=== PATIENT | male | born 1945 | race Caucasian/White ===

== ENCOUNTER 2019-02-07 15:35 | Inpatient (IN) | payer MEDICARE, OTHER ==
[~2019-02-07] VITALS: Ht 165.1 cm; Wt 63.3 kg
[2019-02-07] MEDS ORDERED: SOD CHLORIDE 0.9% 700 ML IV ONE (16:30)
[2019-02-07] MEDS ORDERED: ASPI-903 PO (17:04)
[2019-02-07] MEDS ORDERED: FER325 PO (17:06)
[2019-02-07] MEDS ORDERED: LACT20SO2 PO (17:08)
[2019-02-07] MEDS ORDERED: LANT3I SC (17:08)
[2019-02-07] MEDS ORDERED: LEVE10006 PO (17:09)
[2019-02-07] MEDS ORDERED: LISI-313 PO (17:10)
[2019-02-07] MEDS ORDERED: MAGN400T28 PO (17:11)
[2019-02-07] MEDS ORDERED: INSU100C3 SQ ×2 (17:12→17:22)
[2019-02-07] MEDS ORDERED: CRES20 PO (17:13)
[2019-02-07] MEDS ORDERED: ASC500 PO (17:14)
[2019-02-07] MEDS ORDERED: QUET25TA PO (17:14)
[2019-02-07] MEDS ORDERED: ACET325T33 PO (17:14)
[2019-02-07] MEDS ORDERED: RANI75TA13 PO (17:15)
[2019-02-07] MEDS ORDERED: NS + KCL 40 MEQ 1,000 ML IV SCH (17:50)
[2019-02-07] MEDS ORDERED: D10/0.45% NACL + KCL 30 MEQ 1,000 ML IV SCH (17:50)
[2019-02-07] MEDS ORDERED: DEXTROSE 10%/0.45% NACL 1,000 ML IV SCH (17:50)
[2019-02-07] MEDS ORDERED: D10/0.45% NACL + KCL 40 MEQ 1,000 ML IV SCH (17:50)
[2019-02-07] MEDS ORDERED: NS + KCL 30 MEQ 1,000 ML IV SCH (17:50)
[2019-02-07] MEDS ORDERED: SOD CHLORIDE 0.9% 1,000 ML IV SCH (17:50)
[2019-02-07] MEDS ORDERED: DEXTROSE 50% 50 ML SYRINGE IV PRN ×2 (18:00)
[2019-02-07] MEDS ORDERED: LACTATED RINGER'S 700 ML IV ONE (18:00)
--- NOTE | 2019-02-07 18:13 | ERD ---
ER Documentation Chief Complaint Chief Complaint fr [facility] high blood sugar? HPI This is a 73-year-old male that presents to the emergency department from [facility] with hyperglycemia. The patient's blood sugars been elevated for several days despite the patient taking his medications which includes metformin as well as NovoLog. The patient has a history of epilepsy and is currently on Keppra. He has generalized muscle weakness and atrophy as well as hypertension. The patient has malignant neoplasm of the prostate as well as schizophrenia. The patient is a poor historian. He denies any pain at this time. ROS All systems reviewed and are negative except as per history of present illness. Medications Home Meds Reported Medications Insulin Aspart (Novolog) 100 Unit/1 Ml Cartridge, 0 SQ SLIDING SCALE IF BS 151-200=2 UNITS,201-250=4 UNITS,251-300=6 UNITS,301-350=8 UNITS,351-400=10 UNITS>401=12 UNITS AND CALL MD. 02/07/19 Ranitidine Hcl* (Zantac*) 75 Mg Tablet, 75 MG PO BID, TAB 02/07/19 Ascorbic Acid (Vitamin C) 500 Mg Tab, 500 MG PO BID, TAB 02/07/19 Acetaminophen* (Tylenol*) 325 Mg Tablet, 650 MG PO Q4H PRN for MILD PAIN LEVEL 1-3, TAB 02/07/19 Quetiapine Fumarate* (Seroquel*) 25 Mg Tablet, 25 MG PO TID, #90 TAB 02/07/19 Rosuvastatin Calcium* (Crestor*) 20 Mg Tablet, 20 MG PO QHS, #30 TAB 02/07/19 Insulin Aspart (Novolog) 100 Unit/1 Ml Cartridge, 8 UNIT SQ WITH MEALS for FOR DM 02/07/19 Magnesium Oxide* (Magnesium Oxide*) 400 Mg Tablet, 400 MG PO TID, TAB 02/07/19 Lisinopril* (Lisinopril*) 5 Mg Tablet, 5 MG PO DAILY, #30 TAB HOLD FOR SBP<110 OR HR<60 02/07/19 Levetiracetam* (Levetiracetam*) 1,000 Mg Tablet, 1000 MG PO BID, TAB 02/07/19 Insulin Glargine* (Lantus*) 100 Unit/Ml Soln, 60 UNIT SC QHS, #1 VIAL 02/07/19 Lactulose* (Lactulose*) 20 Gm/30 Ml Solution, 30 ML PO BID, ML 02/07/19 Ferrous Sulfate* (Ferrous Sulfate*) 325 Mg Tabec, 325 MG PO BID, TAB 02/07/19 Aspirin* (Aspirin* Chew) 81 Mg Tab.chew, 81 MG PO DAILY, TAB.CHEW 02/07/19 Allergies Allergies: Coded Allergies: No Known Allergy (Unverified , 02/07/19) PMhx/Soc History of Surgery: No Anesthesia Reaction: No Hx 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 Disorder: No Hx Respiratory Disorders: No Hx Cardiac Disorders: No Hx Psychiatric Problems: No Hx Miscellaneous Medical Probl: No Hx Alcohol Use: Yes Hx Substance Use: No Hx Tobacco Use: No Smoking Status: Never smoker Physical Exam Vitals Vital Signs Date Temp Pulse Resp B/P (MAP) Pulse Ox O2 O2 Flow FiO2 Time Delivery Rate 02/07/19 97.7 99 20 101/55 98 Room Air 16:17 (70) 02/07/19 97.7 93 20 86/51 (63) 98 15:59 Physical Exam Constitutional:Well-developed. Well-nourished. HEENT:Normocephalic. Atraumatic.Pupils were equal round reactive to light. Dry mucous membranes. Neck: No nuchal rigidity. No lymphadenopathy. No posterior cervical spine tenderness or step-offs. Respiratory: Not using accessory muscles of respiration.Lungs were clear to auscultation bilaterally. No rhonchi. No rales. No wheezing. Cardiovascular: Regular rate regular rhythm.No murmurs. No rubs were a ppreciated.S1, S2 normal. Distal pulses are palpable 2+ bilaterally. GI: Abdomen was soft. Nontender. Non Distended. No pulsatile abdominal masses or bruits. No rebound. No guarding. Bowel sounds were present and normal. Muscle skeletal: Muscle atrophy of the bilateral lower extremities. Skin: No petechia, no purpura. No lesions on the palms or the soles of the feet. No maculopapular rash. NEURO: Patient is alert awake and orientated to person but not to place or time. Gait was not observed. No facial droop. Result Diagram: 02/07/19 1653 02/07/19 1653 Results 24 hrs Laboratory Tests Test 02/07/19 16:03 02/07/19 16:19 02/07/19 16:53 Bedside Glucose 435 mg/dL Blood Gas Specimen Source Blood venous Arterial Blood Date Drawn 02/07/2019 4:35:36 PM Arterial Blood Gas VENOUS LINE Puncture Site Kelvin Test N/A Venous Blood pH 7.342 Venous Blood pCO2 22.6 mmHG (Temp Corrected) Venous Blood pO2 53.1 mmHG (Temp Corrected) Venous Blood HCO3 12.0 mmol/L Venous Blood Oxygen 88.0 mmHG Saturation Venous Blood Base Excess -11.5 mmol/L Venous Blood Total 14.5 g/dl Hemoglobin Venous Blood Oxyhemoglobin 87.4 % Venous Blood Methemoglobin 0.4 % Carboxyhemoglobin 0.3 % Blood Gas Temperature 37.0 C Blood Gas Modality NASAL CANNULA FiO2 27.0 % Blood Gas Notified Whom [place] Blood Gas Notified Time 02/07/2019 4:48:19 PM White Blood Count 15.3 10^3/ul Red Blood Count 4.28 10^6/ul Hemoglobin 12.6 g/dl Hematocrit 38.1 % Mean Corpuscular Volume 89.0 fl Mean Corpuscular Hemoglobin 29.4 pg Mean Corpuscular 33.1 g/dl Hemoglobin Concent Red Cell Distribution Width 13.2 % Platelet Count 343 10^3/UL Mean Platelet Volume 10.6 fl Immature Granulocytes % 0.700 % Neutrophils % 77.9 % Lymphocytes % 11.8 % Monocytes % 9.4 % Eosinophils % 0.0 % Basophils % 0.2 % Nucleated Red Blood Cells % 0.0 /100WBC Immature Granulocytes # 0.110 10^3/ul Neutrophils # 11.9 10^3/ul Lymphocytes # 1.8 10^3/ul Monocytes # 1.4 10^3/ul Eosinophils # 0.0 10^3/ul Basophils # 0.0 10^3/ul Nucleated Red Blood Cells # 0.0 10^3/ul Prothrombin Time 12.2 Sec Prothrombin Time Ratio 1.0 INR International 0.89 Normalized Ratio Activated 31.1 Sec Partial Thromboplast Time Sodium Level 129 mmol/L Potassium Level 5.3 mmol/L Chloride Level 87 mmol/L Carbon Dioxide Level 14 mmol/L Anion Gap 28 Blood Urea Nitrogen 47 mg/dl Creatinine 2.52 mg/dl Est Glomerular Filtrat mL/min Rate mL/min Glucose Level 420 mg/dl Calcium Level 10.0 mg/dl Phosphorus Level 3.3 mg/dl Magnesium Level 2.4 mg/dl Total Bilirubin 0.4 mg/dl Direct Bilirubin 0.00 mg/dl Indirect Bilirubin 0.4 mg/dl Aspartate Amino 23 IU/L Transf (AST/SGOT) Alanine 22 IU/L Aminotransferase (ALT/SGPT) Alkaline Phosphatase 113 IU/L Troponin I < 0.012 ng/ml Total Protein 7.5 g/dl Albumin 4.3 g/dl Globulin 3.20 g/dl Albumin/Globulin Ratio 1.34 Current Medications Medications Dose Sig/Mary Kate Start Time Status Last (Trade) Ordered Route PRN Stop Time Admin Dose Reason Admin Sodium 700 ml @ ONCE ONCE 02/07/19 DC 02/07/19 Chloride 700 mls/hr IV 16:30 17:00 02/07/19 17:29 Potassium 1,000 ml @ Q0M IV 02/07/19 UNV Chloride/Sodi 0 mls/hr 17:50 um Chloride Potassium 1,000 ml @ Q0M IV 02/07/19 UNV Chloride/Dext 0 mls/hr 17:50 estrada/ Sod Cl Potassium 1,000 ml @ Q0M IV 02/07/19 UNV Chloride/Sodi 0 mls/hr 17:50 um Chloride Potassium 1,000 ml @ Q0M IV 02/07/19 UNV Chloride/Dext 0 mls/hr 17:50 estrada/ Sod Cl Sodium 1,000 ml @ Q0M IV 02/07/19 UNV Chloride 0 mls/hr 17:50 1,000 ml @ Q0M IV 02/07/19 UNV Dextrose/Sodi 0 mls/hr 17:50 um Chloride Insulin 101 ml @ ER DKA 02/07/19 UNV Human 7.07 mls/hr PROTOCOL IV 18:00 Regular 100 unit/ Sodium Chloride Lactated 700 ml @ ONCE ONCE 02/07/19 UNV Ringer's 700 mls/hr IV 18:00 02/07/19 18:59 HYPOGLYCEM 02/07/19 UNV Miscellaneous HYPOGLYCEMIA PROTOCOL PRN 18:00 TREATMENT XX Information .HYPOGLYCEMIA (* PROTOCOL Miscellaneous Pharmacy Order) Dextrose 50 ml Q15M PRN 02/07/19 UNV (D50w IV 18:00 Syringe) .DECREASED GLUCOSE Dextrose 25 ml Q15M PRN 02/07/19 UNV (D50w IV 18:00 Syringe) .DECREASED GLUCOSE Procedures/MDM This is a 73-year-old male that presented to the emergency department hyperglycemia. The patient been placed on chronic monitor continuous pulse oximetry and IV access was established by nursing staff. 12 Lead EKG tracing ordered and reviewed by myself showed: Normal sinus rhythm of 84 bpm and no arrhythmia. CT interval normal. QRS duration normal. No ST segment elevation No ST segment depression. No changes consistent with acute ischemia. Patient showed signs of clinical dehydration with hypotension. The patient was hyperglycemic with a blood glucose of 420. The anion gap was elevated. The patient had a decreased bicarb of 14. Blood gas showed no acidosis but bicarb was low at 12. The patient had a DKA screening and I did feel was experiencing early diabetic ketoacidosis. Therefore the DKA protocol was initially started. The patient will be placed on an insulin drip to decrease the anion gap. The patient will go to the intensive care unit in serious condition and will be admitted under the care of his primary care physician Dr. Valdivia. Critical Care: Time: 65 minutes Treatments/Evaluations: Close monitoring and treatment of unstable vital signs, cardiorespiratory, and neurologic status, while maintaining tight balance of fluid, respiratory, and cardiac interventions. Time does not include performing any of the above billable procedures. Departure Diagnosis: Primary Impression: Diabetic ketoacidosis Diabetes mellitus type: other specified (including CASSIE) Diabetes mellitus complication detail: without coma Qualified Codes: E13.10 - Other specified diabetes mellitus with ketoacidosis without coma Condition: Serious ERIS MARTINEZ MD Feb 07, 2019 18:13
[2019-02-07] MEDS ORDERED: INSULIN REGULAR, HUMAN 100 UNIT in SOD CHLORIDE 0.9% 100 ML IV SCH ×2 (19:00)
[2019-02-08] VITALS (24 sets, daily range): BP systolic 90–158; BP diastolic 48–86; PULSE 59–87; RESP 12–31; Ht 165.1 cm; Wt 63.3 kg
[2019-02-08] MEDS ORDERED: SOD CHLORIDE 0.9% 1,000 ML IV SCH (02:00)
[2019-02-08] MEDS ORDERED: POTASSIUM CHLORIDE 50 ML IVPB PRN (02:00)
[2019-02-08] MEDS ORDERED: ONDANSETRON 4 MG INJ IV PRN (02:00)
[2019-02-08] MEDS ORDERED: D10/0.45% NACL + KCL 30 MEQ 1,000 ML IV SCH (02:00)
[2019-02-08] MEDS ORDERED: D10/0.45% NACL + KCL 40 MEQ 1,000 ML IV SCH (02:00)
[2019-02-08] MEDS ORDERED: NS + KCL 30 MEQ 1,000 ML IV SCH (02:00)
[2019-02-08] MEDS ORDERED: DEXTROSE 50% 50 ML SYRINGE IV PRN ×5 (02:00→20:00)
[2019-02-08] MEDS ORDERED: NS + KCL 40 MEQ 1,000 ML IV SCH (02:00)
[2019-02-08] MEDS ORDERED: DEXTROSE 10%/0.45% NACL 1,000 ML IV SCH (02:00)
[2019-02-08] MEDS ORDERED: ZOLPIDEM 5 MG TAB PO PRN (02:00)
[2019-02-08] MEDS ORDERED: ACETAMINOPHEN 325 MG TAB PO PRN (02:00)
[2019-02-08] MEDS: INSULIN REGULAR, HUMAN 100 UNIT in SOD CHLORIDE 0.9% 100 ML IV SCH ×4 (02:16→09:21)
[2019-02-08] MEDS: ACCU-CHEK XX SCH ×14 (02:18→15:00)
[2019-02-08] MEDS: PANTOPRAZOLE (EC) 40 MG TAB PO SCH (06:10)
[2019-02-08] MEDS: LEVETIRACETAM 500 MG TAB PO SCH ×2 (08:23→20:42)
[2019-02-08] MEDS: QUETIAPINE 25 MG TAB PO SCH ×3 (08:23→20:43)
--- NOTE | 2019-02-08 11:21 | HP ---
Date/Time of Note Date/Time of Note DATE: 02/08/19 TIME: 11:06 Assessment/Plan VTE Prophylaxis Risk score (from Nsg)>0 risk: 3 SCD applied (from Nsg): Yes Pharmacological prophylaxis: LMWH Lines/Catheters IV Catheter Type (from Nrsg): Peripheral IV Urinary Cath still in place: Yes (condom cath ) Reason Cath still needed: urinary retention Assessment/Plan Assessment/Plan -DKA in patient with diabetes mellitus with hemoglobin A1c of 11, continue insulin drip, monitor electrolytes, ABG, continue ICU care. Dr. Sanchez is asked to see patient in endocrinology consultation. -Systemic inflammatory response syndrome with leukocytosis most likely secondary to DKA. -Acute kidney injury, continue IV fluids, monitor electrolytes -Epilepsy, continue Keppra -Hypertension, continue lisinopril Further recommendations based on clinical course. Plan of care discussed with Dr. Valdivia. Result Diagram: 02/07/19 1653 02/08/19 0954 Results 24hrs Laboratory Tests Test 02/07/19 16:03 02/07/19 16:19 02/07/19 16:45 02/07/19 16:53 Bedside Glucose 435 *H Blood Gas Blood venous Specimen Source Arterial Blood 02/07/2019 4:35 Date Drawn :36 PM Arterial Blood VENOUS LINE Gas Puncture Site Kelvin Test N/A Venous Blood pH 7.342 Venous Blood 22.6 L pCO2 (Temp Corrected ) Venous Blood 53.1 H pO2 (Temp Corrected ) Venous Blood 12.0 L HCO3 Venous Blood 88.0 H Oxygen Saturation Venous Blood -11.5 L Base Excess Venous Blood 14.5 Total Hemoglobin Venous Blood 87.4 Oxyhemoglobin Venous Blood 0.4 Methemoglobin Carboxyhemoglob 0.3 in Blood Gas 37.0 Temperature Blood Gas NASAL CANNULA Modality FiO2 27.0 Blood Gas OR Notified Whom Blood Gas 02/07/2019 4:48 Notified Time :19 PM Hemoglobin A1c 10.8 H White Blood 15.3 H Count Red Blood Count 4.28 L Hemoglobin 12.6 L Hematocrit 38.1 L Mean 89.0 Corpuscular Volume Mean 29.4 Corpuscular Hemoglobin Mean 33.1 Corpuscular Hemoglobin Conc ent Red Cell 13.2 Distribution Width Platelet Count 343 Mean Platelet 10.6 H Volume Immature 0.700 H Granulocytes % Neutrophils % 77.9 H Lymphocytes % 11.8 L Monocytes % 9.4 Eosinophils % 0.0 Basophils % 0.2 Nucleated Red 0.0 Blood Cells % Immature 0.110 H Granulocytes # Neutrophils # 11.9 H Lymphocytes # 1.8 Monocytes # 1.4 H Eosinophils # 0.0 Basophils # 0.0 Nucleated Red 0.0 Blood Cells # Prothrombin 12.2 Time Prothrombin 1.0 Time Ratio INR 0.89 International Normalized Rati o Activated 31.1 Partial Thrombo plast Time Sodium Level 129 L Potassium Level 5.3 H Chloride Level 87 L Carbon Dioxide 14 L Level Anion Gap 28 H Blood Urea 47 H Nitrogen Creatinine 2.52 H Est Glomerular Filtrat Rate mL/min Glucose Level 420 *H Calcium Level 10.0 Phosphorus 3.3 Level Magnesium Level 2.4 Total Bilirubin 0.4 Direct 0.00 Bilirubin Indirect 0.4 Bilirubin Aspartate Amino 23 Transf (AST/SGO T) Alanine 22 Aminotransferas e (ALT/SGPT) Alkaline 113 Phosphatase Troponin I < 0.012 Total Protein 7.5 Albumin 4.3 Globulin 3.20 Albumin/Globuli 1.34 n Ratio Test 02/07/19 19:11 02/07/19 19:26 02/07/19 19:45 02/07/19 19:50 Sodium Level 126 L Potassium Level 5.3 H Chloride Level 92 L Carbon Dioxide 14 L Level Anion Gap 20 #H Blood Urea 46 H Nitrogen Creatinine 2.20 H Est Glomerular Filtrat Rate mL/min Glucose Level 432 *H Calcium Level 8.8 Phosphorus 3.6 Level Magnesium Level 2.2 Bedside Glucose 419 *H Urine Color YELLOW Urine Clarity CLEAR Urine pH 5.0 Urine Specific 1.018 [place] Urine Ketones 2+ H Urine Nitrite NEGATIVE Urine Bilirubin NEGATIVE Urine NEGATIVE Urobilinogen Urine Leukocyte NEGATIVE Esterase Urine 1 Microscopic RBC Urine 0 Microscopic WBC Urine Mucus FEW A Urine 1+ H Hemoglobin Urine Glucose 3+ H Urine Total NEGATIVE Protein Blood Gas Blood venous Specimen Source Arterial Blood 02/07/2019 7:55 Date Drawn :49 PM Arterial Blood VENOUS LINE Gas Puncture Site Kelvin Test N/A Venous Blood pH 7.302 L Venous Blood 29.9 L pCO2 (Temp Corrected ) Venous Blood 42.0 H pO2 (Temp Corrected ) Venous Blood 14.4 L HCO3 Venous Blood 75.0 Oxygen Saturation Venous Blood -10.6 L Base Excess Venous Blood 12.2 Total Hemoglobin Venous Blood 74.4 Oxyhemoglobin Venous Blood 0.5 Methemoglobin Carboxyhemoglob 0.3 in Blood Gas 37.0 Temperature Blood Gas NASAL CANNULA Modality FiO2 27.0 Blood Gas AA Notified Whom Blood Gas 02/07/2019 8:04 Notified Time :33 PM Test 02/07/19 19:54 02/07/19 20:40 02/07/19 21:50 02/07/19 22:12 Bedside Urine 5.0 pH (LAB) Bedside Urine 1+ H Protein (LAB) Bedside Urine 0.50% H Glucose (UA) Bedside Urine 4+ H Ketones (LAB) Bedside Urine Trace-intact H Blood Bedside Urine Negative Nitrite (LAB) Bedside Urine Negative Leukocyte Jackelyn ase (L Bedside Glucose 501 *H 563 *H Blood Gas Blood venous Specimen Source Arterial Blood 02/07/2019 10:0 Date Drawn 5:33 PM Arterial Blood VENOUS LINE Gas Puncture Site Kelvin Test N/A Venous Blood pH 7.233 L Venous Blood 24.7 L pCO2 (Temp Corrected ) Venous Blood 54.7 H pO2 (Temp Corrected ) Venous Blood 10.2 L HCO3 Venous Blood 83.6 H Oxygen Saturation Venous Blood -15.6 L Base Excess Venous Blood 12.3 Total Hemoglobin Venous Blood 82.9 Oxyhemoglobin Venous Blood 0.5 Methemoglobin Carboxyhemoglob 0.3 in Blood Gas 37.0 Temperature Blood Gas NASAL CANNULA Modality FiO2 27.0 Blood Gas AA Notified Whom Blood Gas 02/07/2019 10:1 Notified Time 6:17 PM Test 02/07/19 23:09 02/07/19 23:12 02/08/19 00:09 02/08/19 01:11 Sodium Level 130 L Potassium Level 5.8 H Chloride Level 93 L Carbon Dioxide 9 #*L Level Anion Gap 28 #H Blood Urea 44 H Nitrogen Creatinine 2.47 H Est Glomerular Filtrat Rate mL/min Glucose Level 567 *H Calcium Level 9.3 Phosphorus 4.6 Level Magnesium Level 2.2 Bedside Glucose 545 *H 470 *H 420 *H Test 02/08/19 01:50 02/08/19 02:12 02/08/19 03:07 02/08/19 03:59 Blood Gas Blood venous Specimen Source Arterial Blood 02/08/2019 3:16: Date Drawn 59 AM Arterial Blood VENOUS LINE Gas Puncture Site Kelvin Test ACCEPTAB Venous Blood pH 7.327 L Venous Blood 30.0 L pCO2 (Temp Corrected ) Venous Blood 32.8 H pO2 (Temp Corrected ) Venous Blood 15.4 L HCO3 Venous Blood 62.3 Oxygen Saturation Venous Blood -9.4 L Base Excess Venous Blood 11.5 Total Hemoglobin Venous Blood 61.8 Oxyhemoglobin Venous Blood 0.5 Methemoglobin Carboxyhemoglob 0.3 in Blood Gas 37.0 Temperature Blood Gas NASAL CANNULA Modality FiO2 33.0 Blood Gas Notified Whom Blood Gas 02/08/2019 3:26: Notified Time 09 AM Bedside Glucose 312 H 257 H 324 H Test 02/08/19 04:40 02/08/19 04:56 02/08/19 05:49 02/08/19 05:50 Sodium Level 138 137 Potassium Level 4.7 4.7 Chloride Level 102 103 Carbon Dioxide 21 # 20 L Level Anion Gap 15 #H 14 H Blood Urea 40 H 39 H Nitrogen Creatinine 1.85 H 1.68 H Est Glomerular Filtrat Rate mL/min Glucose Level 200 # 189 Calcium Level 9.2 9.0 Phosphorus 2.6 # 2.5 Level Magnesium Level 2.2 2.1 Bedside Glucose 218 Hemoglobin A1c 11.1 H Thyroid 0.582 Stimulating Hormone (TSH) Blood Gas Blood venous Specimen Source Arterial Blood 02/08/2019 6:00 Date Drawn :51 AM Arterial Blood VENOUS LINE Gas Puncture Site Kelvin Test N/A Venous Blood pH 7.341 Venous Blood 40.3 pCO2 (Temp Corrected ) Venous Blood 30.3 H pO2 (Temp Corrected ) Venous Blood 21.3 L HCO3 Venous Blood 55.5 Oxygen Saturation Venous Blood -4.1 Base Excess Venous Blood 12.6 Total Hemoglobin Venous Blood 55.2 Oxyhemoglobin Venous Blood 0.2 Methemoglobin Carboxyhemoglob 0.4 in Blood Gas 37.0 Temperature Blood Gas 18 Actual Respiration Rat e Blood Gas NASAL CANNULA Modality FiO2 33.0 Blood Gas Notified Whom Blood Gas 02/08/2019 6:17 Notified Time :59 AM Test 02/08/19 06:05 02/08/19 06:56 02/08/19 08:16 02/08/19 09:18 Bedside Glucose 200 188 199 176 Test 02/08/19 09:54 02/08/19 09:58 Sodium Level 135 Potassium Level 3.6 Chloride Level 105 Carbon Dioxide 23 Level Anion Gap 7 Blood Urea 32 H Nitrogen Creatinine 1.29 H Est Glomerular Filtrat Rate mL/min Glucose Level 186 Calcium Level 8.4 Phosphorus 1.6 L Level Magnesium Level 2.0 Bedside Glucose 179 HPI/ROS Admit Date/Time Admit Date/Time Feb 07, 2019 at 18:24 Hx of Present Illness Patient is 73-year-old gentleman with history of congestive heart failure, hypertension, anemia, diabetes mellitus type 2, prostate cancer, epilepsy, generalized muscle weakness and schizophrenia was brought from group home facility for hyperglycemia. The patient's blood sugar been elevated for several days despite of taking Lantus, NovoLog and metformin. The patient is a poor historian and cannot provide any history. Most of the history was obtained from medical records and talking to nursing staff. Patient was diagnosed with DKA in the emergency room and started on insulin drip and admitted for further evaluation and management to intensive care unit. No fever nausea vomiting were reported, patient is able to void. ROS 12 point review of system is negative except for what mentioned in HPI PMH/Family/Social Past Medical History Per HPI Medical History: congestive heart failure, diabetes, hypertension, other (Prostate cancer, schizophrenia) Medications Current Medications Dextrose (D50w Syringe) 50 ml Q15M PRN IV For BS 50 or less; Start 02/08/19 at 02:00 Dextrose (D50w Syringe) 25 ml Q15M PRN IV BS between 50-70; Start 02/08/19 at 02:00 Diagnostic Test (Pha) (Accu-Chek) 1 ea Q1H XX Last administered on 02/08/19at 07:05; Admin Dose 1 EA; Start 02/08/19 at 02:00 Miscellaneous Information (* Miscellaneous Pharmacy Order) HYPOGLYCEMIA TREATMENT HYPOGLYCEM PROTOCOL PRN XX Hypoglycemia (BS < 70); Start 02/08/19 at 02:00 Potassium Chloride/Sodium Chloride 1,000 ml @ 0 mls/hr Q0M IV ; Start 02/08/19 at 02:00 Potassium Chloride/Dextrose/ Sod Cl 1,000 ml @ 0 mls/hr Q0M IV ; Start 02/08/19 at 02:00 Potassium Chloride/Sodium Chloride 1,000 ml @ 0 mls/hr Q0M IV ; Start 02/08/19 at 02:00 Potassium Chloride/Dextrose/ Sod Cl 1,000 ml @ 0 mls/hr Q0M IV Last administered on 02/08/19at 07:02; Admin Dose 250 MLS/HR; Start 02/08/19 at 02:00 Sodium Chloride 1,000 ml @ 0 mls/hr Q0M IV Last administered on 02/08/19at 02:16; Admin Dose 250 MLS/HR; Start 02/08/19 at 02:00 Dextrose/Sodium Chloride 1,000 ml @ 0 mls/hr Q0M IV Last administered on 02/08/19at 03:11; Admin Dose 150 MLS/HR; Start 02/08/19 at 02:00 Insulin Human Regular 100 unit/ Sodium Chloride 101 ml @ 7.07 mls/hr DKA PROTOCOL IV Last administered on 02/08/19at 09:21; Admin Dose 7.07 MLS/HR; Start 02/08/19 at 02:00 Potassium Chloride 50 ml @ 50 mls/hr K PROTOCOL PRN IVPB PENDING LAB VALUE; Start 02/08/19 at 02:00 Pantoprazole (Protonix Tab) 40 mg DAILY@06 PO Last administered on 02/08/19at 06:10; Admin Dose 40 MG; Start 02/08/19 at 06:00 Acetaminophen (Tylenol Tab) 650 mg Q4H PRN PO MILD PAIN(1-3)OR ELEVATED TEMP; Start 02/08/19 at 02:00 Ondansetron HCl (Zofran Inj) 4 mg Q6H PRN IV NAUSEA AND/OR VOMITING; Start 02/08/19 at 02:00 Zolpidem Tartrate (Ambien) 5 mg HS PRN PO INSOMNIA; Start 02/08/19 at 02:00 Quetiapine Fumarate (Seroquel) 25 mg TID PO Last administered on 02/08/19at 08:23; Admin Dose 25 MG; Start 02/08/19 at 09:00 Levetiracetam (Keppra) 1,000 mg BID PO Last administered on 02/08/19at 08:23; Admin Dose 1,000 MG; Start 02/08/19 at 09:00 Coded Allergies: No Known Allergy (Unverified , 02/07/19) Past Surgical History Unable to obtain due to patient's condition Social History Patient is a resident of [facility] Alcohol Use: none Smoking Status: Unknown if ever smoked Drug Use: none Exam/Review of Systems Vital Signs Vitals Vital Signs Date Temp Pulse Resp B/P (MAP) Pulse Ox O2 O2 Flow FiO2 Time Delivery Rate 02/08/19 71 08:00 02/08/19 15 119/59 100 Nasal 06:00 (79) Cannula 02/08/19 98.5 04:00 02/08/19 4.0 02:10 Intake and Output 02/07/19 02/07/19 02/08/19 1515:00 23:00 07:00 IntakeIntake Total 1335 ml BalanceBalance 1335 ml Exam Constitutional: alert, oriented Head: normocephalic Respiratory: clear to auscultation Cardiovascular: regular rate and rhythm Gastrointestinal: soft, non-tender Musculoskeletal: nl extremities to inspection Extremities: normal pulses 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: nl mental status Skin: nl ANAIS Keller Feb 08, 2019 11:17
[2019-02-08] MEDS ORDERED: DEXTROSE 5%-0.45% NACL 1,000 ML IV SCH (12:00)
[2019-02-08] MEDS ORDERED: INSULIN HUMAN REGULAR 100 UNIT in SOD CHLORIDE 0.9% 99 ML IV SCH (12:00)
[2019-02-08] MEDS ORDERED: POTASSIUM PHOSPHATE 15 MM in SOD CHLORIDE 0.9% 250 ML IVPB ONE (13:00)
--- NOTE | 2019-02-08 14:07 | CONS ---
Assessment/Plan Assessment/Plan Problems: (1) Type 2 diabetes mellitus with hyperglycemia Status: Chronic Comment: Will hold all glucose and DM meds for now. Tonight will give lantus only 13 units (pt. supposedly on 60 units nightly at SNF). Once diet advanced will give Novolog 6 units qac. Consider adding linagliptin. Will monitor and decide what insulin regimen would be best over the next several days. Low threshold for significant dose increases as we are well below the doses pt. supposedly on in SNF. Qualifiers: Qualified Codes: E11.65 - Type 2 diabetes mellitus with hyperglycemia; Z79.4 - shelter (current) use of insulin (2) Diabetic ketoacidosis Status: Resolved Qualifiers: Qualified Codes: E13.10 - Other specified diabetes mellitus with ketoacidosis without coma Consultation Date/Type/Reason Admit Date/Time Feb 07, 2019 at 18:24 Date of Consultation: Feb 08, 2019 Type of Consult Endocrinology Reason for Consultation DKA Requesting Provider: ANAIS DOWNS Date/Time of Note DATE: 02/08/19 TIME: 13:54 Hx of Present Illness 73 y/o C M w/ h/o DM, type unclear although of note pt. was on metformin so likely has T2DM. In addition, based on the chart, pt. has h/o schizophrenia, congestive heart failure, hypertension, anemia, prostate cancer, and epilepsy. Pt. has had several days of hyperglycemia despite his regular treatment and last night was sent to ER in DKA w/ acute renal failure. Has been treated w/ insulin drip and IVF and DKA has resolved w/ most recent CO2 23 and BG 55 mg/dL. Pt. unable to give any history. Constitutional: disoriented Past Medical History Medical History: cancer (prostate), congestive heart failure, diabetes, high cholesterol, hypertension, other (schizophrenia, anemia, epilepsy) Home Meds Reported Medications Insulin Aspart (Novolog) 100 Unit/1 Ml Cartridge, 0 SQ SLIDING SCALE IF BS 151-200=2 UNITS,201-250=4 UNITS,251-300=6 UNITS,301-350=8 UNITS,351-400=10 UNITS>401=12 UNITS AND CALL 02/07/19 Ranitidine Hcl* (Zantac*) 75 Mg Tablet, 75 MG PO BID, TAB 02/07/19 Ascorbic Acid (Vitamin C) 500 Mg Tab, 500 MG PO BID, TAB 02/07/19 Acetaminophen* (Tylenol*) 325 Mg Tablet, 650 MG PO Q4H PRN for MILD PAIN LEVEL 1-3, TAB 02/07/19 Quetiapine Fumarate* (Seroquel*) 25 Mg Tablet, 25 MG PO TID, #90 TAB 02/07/19 Rosuvastatin Calcium* (Crestor*) 20 Mg Tablet, 20 MG PO QHS, #30 TAB 02/07/19 Insulin Aspart (Novolog) 100 Unit/1 Ml Cartridge, 8 UNIT SQ WITH MEALS for FOR DM 02/07/19 Magnesium Oxide* (Magnesium Oxide*) 400 Mg Tablet, 400 MG PO TID, TAB 02/07/19 Lisinopril* (Lisinopril*) 5 Mg Tablet, 5 MG PO DAILY, #30 TAB HOLD FOR SBP<110 OR HR<60 02/07/19 Levetiracetam* (Levetiracetam*) 1,000 Mg Tablet, 1000 MG PO BID, TAB 02/07/19 Insulin Glargine* (Lantus*) 100 Unit/Ml Soln, 60 UNIT SC QHS, #1 VIAL 02/07/19 Lactulose* (Lactulose*) 20 Gm/30 Ml Solution, 30 ML PO BID, ML 02/07/19 Ferrous Sulfate* (Ferrous Sulfate*) 325 Mg Tabec, 325 MG PO BID, TAB 02/07/19 Aspirin* (Aspirin* Chew) 81 Mg Tab.chew, 81 MG PO DAILY, TAB.CHEW 02/07/19 Medications Current Medications Miscellaneous Information (* Miscellaneous Pharmacy Order) HYPOGLYCEMIA TREATMENT HYPOGLYCEM PROTOCOL PRN XX Hypoglycemia (BS < 70); Start 02/08/19 at 02:00 Potassium Chloride/Sodium Chloride 1,000 ml @ 0 mls/hr Q0M IV ; Start 02/08/19 at 02:00 Potassium Chloride/Dextrose/ Sod Cl 1,000 ml @ 0 mls/hr Q0M IV ; Start 02/08/19 at 02:00 Potassium Chloride/Sodium Chloride 1,000 ml @ 0 mls/hr Q0M IV ; Start 02/08/19 at 02:00 Potassium Chloride/Dextrose/ Sod Cl 1,000 ml @ 0 mls/hr Q0M IV Last administered on 02/08/19at 07:02; Admin Dose 250 MLS/HR; Start 02/08/19 at 02:00 Sodium Chloride 1,000 ml @ 0 mls/hr Q0M IV Last administered on 02/08/19at 02:16; Admin Dose 250 MLS/HR; Start 02/08/19 at 02:00 Dextrose/Sodium Chloride 1,000 ml @ 0 mls/hr Q0M IV Last administered on 02/08/19at 03:11; Admin Dose 150 MLS/HR; Start 02/08/19 at 02:00 Potassium Chloride 50 ml @ 50 mls/hr K PROTOCOL PRN IVPB PENDING LAB VALUE; Start 02/08/19 at 02:00 Pantoprazole (Protonix Tab) 40 mg DAILY@06 PO Last administered on 02/08/19at 06:10; Admin Dose 40 MG; Start 02/08/19 at 06:00 Acetaminophen (Tylenol Tab) 650 mg Q4H PRN PO MILD PAIN(1-3)OR ELEVATED TEMP; Start 02/08/19 at 02:00 Ondansetron HCl (Zofran Inj) 4 mg Q6H PRN IV NAUSEA AND/OR VOMITING; Start 02/08/19 at 02:00 Zolpidem Tartrate (Ambien) 5 mg HS PRN PO INSOMNIA; Start 02/08/19 at 02:00 Quetiapine Fumarate (Seroquel) 25 mg TID PO Last administered on 02/08/19at 08:23; Admin Dose 25 MG; Start 02/08/19 at 09:00 Levetiracetam (Keppra) 1,000 mg BID PO Last administered on 02/08/19at 08:23; Admin Dose 1,000 MG; Start 02/08/19 at 09:00 Potassium Phosphate 15 mm/ Sodium Chloride 255 ml @ 63.75 mls/ hr ONCE ONCE IVPB Last administered on 02/08/19at 13:32; Admin Dose 63.75 MLS/HR; Start 02/08/19 at 13:00; Stop 02/08/19 at 16:59 Diagnostic Test (Pha) (Accu-Chek) 1 ea Q1H XX ; Start 02/08/19 at 12:00 Insulin Human Regular 100 unit/ Sodium Chloride 100 ml @ 0 mls/hr PER PROTOCOL IV ; Start 02/08/19 at 12:00 Miscellaneous Information (* Miscellaneous Pharmacy Order) Treatment of Hypoglycemia: 1.BG 51... Per protocol XX ; Start 02/08/19 at 12:00 Dextrose (D50w Syringe) 25 ml Q15M PRN IV .DECREASED GLUCOSE Last administered on 02/08/19at 13:28; Admin Dose 25 ML; Start 02/08/19 at 12:00 Dextrose (D50w Syringe) 50 ml Q15M PRN IV .DECREASED GLUCOSE; Start 02/08/19 at 12:00 Dextrose/Sodium Chloride 1,000 ml @ 100 mls/hr Q10H IV Last administered on 02/08/19at 12:28; Admin Dose 100 MLS/HR; Start 02/08/19 at 12:00 Diagnostic Test (Pha) (Accu-Chek) XX ; Start 02/09/19 at 02:00 Insulin Glargine (Lantus) 13 units DAILY@2000 SC ; Start 02/08/19 at 20:00 Insulin Aspart (Novolog Insulin Pen) 6 unit WITH MEALS SC ; Start 02/08/19 at 17:35; Status UNV Insulin Aspart (Novolog Insulin Pen) NOVOLOG *MILD* ALGORITHM WITH MEALS BEDTIME SC ; Start 02/08/19 at 17:35; Status UNV Allergies: Coded Allergies: No Known Allergy (Unverified , 02/07/19) Past Surgical History Past Surgical Hx: other (unknown; pt. awake but cannot relate a surgical history) Family History Significant Family History: other (unknown) Social History pt. , no children, living at SNF; unable to provide further history as pt. unable even to delineate a former career. Alcohol Use: other (unknown) Smoking Status: Unknown if ever smoked Drug Use: none Exam/Review of Systems Exam Vitals Vital Signs Date Temp Pulse Resp B/P (MAP) Pulse Ox O2 O2 Flow FiO2 Time Delivery Rate 02/08/19 70 12:00 02/08/19 15 91/55 (67) 100 Nasal 11:00 Cannula 02/08/19 98.2 08:00 02/08/19 4.0 02:10 Intake and Output 02/07/19 02/07/19 02/08/19 1515:00 23:00 07:00 IntakeIntake Total 1335 ml BalanceBalance 1335 ml Constitutional: alert, well developed; No oriented (alert and oriented only to name) Eyes: nl conjunctiva, EOMI, nl lids, nl sclera, PERRL ENMT: nl external ears & nose, mucosa pink and moist Neck: supple, non-tender; No bruits, No masses, No thyromegaly Respiratory: clear to auscultation, normal air movement Cardiovascular: regular rate and rhythm, nl pulses; No edema, No murmurs/extra sounds, No rub Gastrointestinal: soft, nl liver, spleen, non-tender, bowel sounds; No mass, No rebound or guarding Musculoskeletal: nl extremities to inspection Extremities: normal pulses; No cyanosis, No clubbing, No edema 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: confused Additional Comments Bedside Glucose - 72 Hours Test 02/07/19 16:03 02/07/19 19:26 02/07/19 20:40 02/07/19 22:12 Bedside 435 419 501 563 Glucose mg/dL (70-220) mg/dL (70-220) mg/dL (70-220) mg/dL (70-220) *H *H *H *H Test 02/07/19 23:12 02/08/19 00:09 02/08/19 01:11 02/08/19 02:12 Bedside 545 470 420 312 Glucose mg/dL (70-220) mg/dL (70-220) mg/dL (70-220) mg/dL (70-220) *H *H *H H Test 02/08/19 03:07 02/08/19 03:59 02/08/19 04:56 02/08/19 06:05 Bedside 257 324 218 200 Glucose mg/dL (70-220) mg/dL (70-220) mg/dL (70-220) mg/dL (70-220) H H Test 02/08/19 06:56 02/08/19 08:16 02/08/19 09:18 02/08/19 09:58 Bedside 188 199 176 179 Glucose mg/dL (70-220) mg/dL (70-220) mg/dL (70-220) mg/dL (70-220) Test 02/08/19 12:27 02/08/19 13:24 02/08/19 13:42 Bedside 80 55 77 Glucose mg/dL (70-220) mg/dL (70-220) mg/dL (70-220) L Results Result Diagram: 02/07/19 1653 02/08/19 0954 Results 24hrs Laboratory Tests Test 02/07/19 16:03 02/07/19 16:19 02/07/19 16:45 02/07/19 16:53 Bedside Glucose 435 *H Blood Gas Blood venous Specimen Source Arterial Blood 02/07/2019 4:35 Date Drawn :36 PM Arterial Blood VENOUS LINE Gas Puncture Site Kelvin Test N/A Venous Blood pH 7.342 Venous Blood 22.6 L pCO2 (Temp Corrected ) Venous Blood 53.1 H pO2 (Temp Corrected ) Venous Blood 12.0 L HCO3 Venous Blood 88.0 H Oxygen Saturation Venous Blood -11.5 L Base Excess Venous Blood 14.5 Total Hemoglobin Venous Blood 87.4 Oxyhemoglobin Venous Blood 0.4 Methemoglobin Carboxyhemoglob 0.3 in Blood Gas 37.0 Temperature Blood Gas NASAL CANNULA Modality FiO2 27.0 Blood Gas [place] Notified Whom Blood Gas 02/07/2019 4:48 Notified Time :19 PM Hemoglobin A1c 10.8 H White Blood 15.3 H Count Red Blood Count 4.28 L Hemoglobin 12.6 L Hematocrit 38.1 L Mean 89.0 Corpuscular Volume Mean 29.4 Corpuscular Hemoglobin Mean 33.1 Corpuscular Hemoglobin Conc ent Red Cell 13.2 Distribution Width Platelet Count 343 Mean Platelet 10.6 H Volume Immature 0.700 H Granulocytes % Neutrophils % 77.9 H Lymphocytes % 11.8 L Monocytes % 9.4 Eosinophils % 0.0 Basophils % 0.2 Nucleated Red 0.0 Blood Cells % Immature 0.110 H Granulocytes # Neutrophils # 11.9 H Lymphocytes # 1.8 Monocytes # 1.4 H Eosinophils # 0.0 Basophils # 0.0 Nucleated Red 0.0 Blood Cells # Prothrombin 12.2 Time Prothrombin 1.0 Time Ratio INR 0.89 International Normalized Rati o Activated 31.1 Partial Thrombo plast Time Sodium Level 129 L Potassium Level 5.3 H Chloride Level 87 L Carbon Dioxide 14 L Level Anion Gap 28 H Blood Urea 47 H Nitrogen Creatinine 2.52 H Est Glomerular Filtrat Rate mL/min Glucose Level 420 *H Calcium Level 10.0 Phosphorus 3.3 Level Magnesium Level 2.4 Total Bilirubin 0.4 Direct 0.00 Bilirubin Indirect 0.4 Bilirubin Aspartate Amino 23 Transf (AST/SGO T) Alanine 22 Aminotransferas e (ALT/SGPT) Alkaline 113 Phosphatase Troponin I < 0.012 Total Protein 7.5 Albumin 4.3 Globulin 3.20 Albumin/Globuli 1.34 n Ratio Test 02/07/19 19:11 02/07/19 19:26 02/07/19 19:45 02/07/19 19:50 Sodium Level 126 L Potassium Level 5.3 H Chloride Level 92 L Carbon Dioxide 14 L Level Anion Gap 20 #H Blood Urea 46 H Nitrogen Creatinine 2.20 H Est Glomerular Filtrat Rate mL/min Glucose Level 432 *H Calcium Level 8.8 Phosphorus 3.6 Level Magnesium Level 2.2 Bedside Glucose 419 *H Urine Color YELLOW Urine Clarity CLEAR Urine pH 5.0 Urine Specific 1.018 [place] Urine Ketones 2+ H Urine Nitrite NEGATIVE Urine Bilirubin NEGATIVE Urine NEGATIVE Urobilinogen Urine Leukocyte NEGATIVE Esterase Urine 1 Microscopic RBC Urine 0 Microscopic WBC Urine Mucus FEW A Urine 1+ H Hemoglobin Urine Glucose 3+ H Urine Total NEGATIVE Protein Blood Gas Blood venous Specimen Source Arterial Blood 02/07/2019 7:55 Date Drawn :49 PM Arterial Blood VENOUS LINE Gas Puncture Site Kelvin Test N/A Venous Blood pH 7.302 L Venous Blood 29.9 L pCO2 (Temp Corrected ) Venous Blood 42.0 H pO2 (Temp Corrected ) Venous Blood 14.4 L HCO3 Venous Blood 75.0 Oxygen Saturation Venous Blood -10.6 L Base Excess Venous Blood 12.2 Total Hemoglobin Venous Blood 74.4 Oxyhemoglobin Venous Blood 0.5 Methemoglobin Carboxyhemoglob 0.3 in Blood Gas 37.0 Temperature Blood Gas NASAL CANNULA Modality FiO2 27.0 Blood Gas AA Notified Whom Blood Gas 02/07/2019 8:04 Notified Time :33 PM Test 02/07/19 19:54 02/07/19 20:40 02/07/19 21:50 02/07/19 22:12 Bedside Urine 5.0 pH (LAB) Bedside Urine 1+ H Protein (LAB) Bedside Urine 0.50% H Glucose (UA) Bedside Urine 4+ H Ketones (LAB) Bedside Urine Trace-intact H Blood Bedside Urine Negative Nitrite (LAB) Bedside Urine Negative Leukocyte Jackelyn ase (L Bedside Glucose 501 *H 563 *H Blood Gas Blood venous Specimen Source Arterial Blood 02/07/2019 10:0 Date Drawn 5:33 PM Arterial Blood VENOUS LINE Gas Puncture Site Kelvin Test N/A Venous Blood pH 7.233 L Venous Blood 24.7 L pCO2 (Temp Corrected ) Venous Blood 54.7 H pO2 (Temp Corrected ) Venous Blood 10.2 L HCO3 Venous Blood 83.6 H Oxygen Saturation Venous Blood -15.6 L Base Excess Venous Blood 12.3 Total Hemoglobin Venous Blood 82.9 Oxyhemoglobin Venous Blood 0.5 Methemoglobin Carboxyhemoglob 0.3 in Blood Gas 37.0 Temperature Blood Gas NASAL CANNULA Modality FiO2 27.0 Blood Gas AA Notified Whom Blood Gas 02/07/2019 10:1 Notified Time 6:17 PM Test 02/07/19 23:09 02/07/19 23:12 02/08/19 00:09 02/08/19 01:11 Sodium Level 130 L Potassium Level 5.8 H Chloride Level 93 L Carbon Dioxide 9 #*L Level Anion Gap 28 #H Blood Urea 44 H Nitrogen Creatinine 2.47 H Est Glomerular Filtrat Rate mL/min Glucose Level 567 *H Calcium Level 9.3 Phosphorus 4.6 Level Magnesium Level 2.2 Bedside Glucose 545 *H 470 *H 420 *H Test 02/08/19 01:50 02/08/19 02:12 02/08/19 03:07 02/08/19 03:59 Blood Gas Blood venous Specimen Source Arterial Blood 02/08/2019 3:16: Date Drawn 59 AM Arterial Blood VENOUS LINE Gas Puncture Site Kelvin Test ACCEPTAB Venous Blood pH 7.327 L Venous Blood 30.0 L pCO2 (Temp Corrected ) Venous Blood 32.8 H pO2 (Temp Corrected ) Venous Blood 15.4 L HCO3 Venous Blood 62.3 Oxygen Saturation Venous Blood -9.4 L Base Excess Venous Blood 11.5 Total Hemoglobin Venous Blood 61.8 Oxyhemoglobin Venous Blood 0.5 Methemoglobin Carboxyhemoglob 0.3 in Blood Gas 37.0 Temperature Blood Gas NASAL CANNULA Modality FiO2 33.0 Blood Gas RH Notified Whom Blood Gas 02/08/2019 3:26: Notified Time 09 AM Bedside Glucose 312 H 257 H 324 H Test 02/08/19 04:40 02/08/19 04:56 02/08/19 05:49 02/08/19 05:50 Sodium Level 138 137 Potassium Level 4.7 4.7 Chloride Level 102 103 Carbon Dioxide 21 # 20 L Level Anion Gap 15 #H 14 H Blood Urea 40 H 39 H Nitrogen Creatinine 1.85 H 1.68 H Est Glomerular Filtrat Rate mL/min Glucose Level 200 # 189 Calcium Level 9.2 9.0 Phosphorus 2.6 # 2.5 Level Magnesium Level 2.2 2.1 Bedside Glucose 218 Hemoglobin A1c 11.1 H Thyroid 0.582 Stimulating Hormone (TSH) Blood Gas Blood venous Specimen Source Arterial Blood 02/08/2019 6:00 Date Drawn :51 AM Arterial Blood VENOUS LINE Gas Puncture Site Kelvin Test N/A Venous Blood pH 7.341 Venous Blood 40.3 pCO2 (Temp Corrected ) Venous Blood 30.3 H pO2 (Temp Corrected ) Venous Blood 21.3 L HCO3 Venous Blood 55.5 Oxygen Saturation Venous Blood -4.1 Base Excess Venous Blood 12.6 Total Hemoglobin Venous Blood 55.2 Oxyhemoglobin Venous Blood 0.2 Methemoglobin Carboxyhemoglob 0.4 in Blood Gas 37.0 Temperature Blood Gas 18 Actual Respiration Rat e Blood Gas NASAL CANNULA Modality FiO2 33.0 Blood Gas Notified Whom Blood Gas 02/08/2019 6:17 Notified Time :59 AM Test 02/08/19 06:05 02/08/19 06:56 02/08/19 08:16 02/08/19 09:18 Bedside Glucose 200 188 199 176 Test 02/08/19 09:54 02/08/19 09:58 02/08/19 12:27 02/08/19 13:24 Sodium Level 135 Potassium Level 3.6 Chloride Level 105 Carbon Dioxide 23 Level Anion Gap 7 Blood Urea 32 H Nitrogen Creatinine 1.29 H Est Glomerular Filtrat Rate mL/min Glucose Level 186 Calcium Level 8.4 Phosphorus 1.6 L Level Magnesium Level 2.0 Bedside Glucose 179 80 55 L Test 02/08/19 13:42 Bedside Glucose 77 Medications Medication Current Medications Miscellaneous Information (* Miscellaneous Pharmacy Order) HYPOGLYCEMIA TREATMENT HYPOGLYCEM PROTOCOL PRN XX Hypoglycemia (BS < 70); Start 02/08/19 at 02:00 Potassium Chloride/Sodium Chloride 1,000 ml @ 0 mls/hr Q0M IV ; Start 02/08/19 at 02:00 Potassium Chloride/Dextrose/ Sod Cl 1,000 ml @ 0 mls/hr Q0M IV ; Start 02/08/19 at 02:00 Potassium Chloride/Sodium Chloride 1,000 ml @ 0 mls/hr Q0M IV ; Start 02/08/19 at 02:00 Potassium Chloride/Dextrose/ Sod Cl 1,000 ml @ 0 mls/hr Q0M IV Last administered on 02/08/19at 07:02; Admin Dose 250 MLS/HR; Start 02/08/19 at 02:00 Sodium Chloride 1,000 ml @ 0 mls/hr Q0M IV Last administered on 02/08/19at 02:16; Admin Dose 250 MLS/HR; Start 02/08/19 at 02:00 Dextrose/Sodium Chloride 1,000 ml @ 0 mls/hr Q0M IV Last administered on 02/08/19at 03:11; Admin Dose 150 MLS/HR; Start 02/08/19 at 02:00 Potassium Chloride 50 ml @ 50 mls/hr K PROTOCOL PRN IVPB PENDING LAB VALUE; Start 02/08/19 at 02:00 Pantoprazole (Protonix Tab) 40 mg DAILY@06 PO Last administered on 02/08/19at 06:10; Admin Dose 40 MG; Start 02/08/19 at 06:00 Acetaminophen (Tylenol Tab) 650 mg Q4H PRN PO MILD PAIN(1-3)OR ELEVATED TEMP; Start 02/08/19 at 02:00 Ondansetron HCl (Zofran Inj) 4 mg Q6H PRN IV NAUSEA AND/OR VOMITING; Start 02/08/19 at 02:00 Zolpidem Tartrate (Ambien) 5 mg HS PRN PO INSOMNIA; Start 02/08/19 at 02:00 Quetiapine Fumarate (Seroquel) 25 mg TID PO Last administered on 02/08/19at 08:23; Admin Dose 25 MG; Start 02/08/19 at 09:00 Levetiracetam (Keppra) 1,000 mg BID PO Last administered on 02/08/19at 08:23; Admin Dose 1,000 MG; Start 02/08/19 at 09:00 Potassium Phosphate 15 mm/ Sodium Chloride 255 ml @ 63.75 mls/ hr ONCE ONCE IVPB Last administered on 02/08/19at 13:32; Admin Dose 63.75 MLS/HR; Start 02/08/19 at 13:00; Stop 02/08/19 at 16:59 Diagnostic Test (Pha) (Accu-Chek) 1 ea Q1H XX ; Start 02/08/19 at 12:00 Insulin Human Regular 100 unit/ Sodium Chloride 100 ml @ 0 mls/hr PER PROTOCOL IV ; Start 02/08/19 at 12:00 Miscellaneous Information (* Miscellaneous Pharmacy Order) Treatment of Hypog lycemia: 1.BG 51... Per protocol XX ; Start 02/08/19 at 12:00 Dextrose (D50w Syringe) 25 ml Q15M PRN IV .DECREASED GLUCOSE Last administered on 02/08/19at 13:28; Admin Dose 25 ML; Start 02/08/19 at 12:00 Dextrose (D50w Syringe) 50 ml Q15M PRN IV .DECREASED GLUCOSE; Start 02/08/19 at 12:00 Dextrose/Sodium Chloride 1,000 ml @ 100 mls/hr Q10H IV Last administered on 02/08/19at 12:28; Admin Dose 100 MLS/HR; Start 02/08/19 at 12:00 Diagnostic Test (Pha) (Accu-Chek) 1 ea 02 XX ; Start 02/09/19 at 02:00 Insulin Glargine (Lantus) 13 units DAILY@2000 SC ; Start 02/08/19 at 20:00 Insulin Aspart (Novolog Insulin Pen) 6 unit WITH MEALS SC ; Start 02/08/19 at 17:35; Status UNV Insulin Aspart (Novolog Insulin Pen) NOVOLOG *MILD* ALGORITHM WITH MEALS BEDTIME SC ; Start 02/08/19 at 17:35; Status UNV RUBIN CHACON MD Feb 08, 2019 14:04
[2019-02-08] MEDS: DEXTROSE 50% 50 ML SYRINGE IV PRN ×2 (17:21→17:56)
[2019-02-08] MEDS: INSULIN ASPART [NOVOLOG] 3 ML PEN SC SCH ×3 (17:35→20:43)
[2019-02-08] MEDS ORDERED: GLUCOSE GEL 15 GRAM TUBE BUCCAL PRN (20:00)
[2019-02-08] MEDS ORDERED: GLUCOSE GEL 15 GRAM TUBE PO PRN ×2 (20:00)
[2019-02-08] MEDS ORDERED: GLUCAGON 1 MG INJ IM PRN (20:00)
[2019-02-08] MEDS: INSULIN GLARGINE [LANTus] (100 UNITS/ML) SYG SC SCH (20:54)
[2019-02-09] VITALS (11 sets, daily range): BP systolic 117–169; BP diastolic 58–78; PULSE 72–96; RESP 18–19
[2019-02-09] MEDS: ACCU-CHEK XX SCH (02:00)
--- NOTE | 2019-02-09 05:06 | PN ---
Date/Time of Note Date/Time of Note DATE: 02/09/19 TIME: 05:06 Assessment/Plan VTE Prophylaxis Risk score (from Nsg)>0 risk: 4 SCD applied (from Nsg): Yes Lines/Catheters IV Catheter Type (from Nrsg): Saline Lock Assessment/Plan Assessment/Plan -DKA in patient with diabetes mellitus with hemoglobin A1c of 11, continue insulin drip, monitor electrolytes, ABG, continue ICU care. Dr. Sanchez is asked to see patient in endocrinology consultation. -Systemic inflammatory response syndrome with leukocytosis most likely secondary to DKA. -Acute kidney injury, continue IV fluids, monitor electrolytes -Epilepsy, continue Keppra -Hypertension, continue lisinopril Further recommendations based on clinical course. Plan of care discussed with Dr. Valdivia. Result Diagram: 02/07/19 1653 02/08/19 0954 Results 24hrs Laboratory Tests Test 02/08/19 05:49 02/08/19 05:50 02/08/19 06:05 02/08/19 06:56 Sodium Level 137 Potassium Level 4.7 Chloride Level 103 Carbon Dioxide 20 L Level Anion Gap 14 H Blood Urea 39 H Nitrogen Creatinine 1.68 H Est Glomerular Filtrat Rate mL/min Glucose Level 189 Hemoglobin A1c 11.1 H Calcium Level 9.0 Phosphorus Level 2.5 Magnesium Level 2.1 Thyroid 0.582 Stimulating Hormone (TSH) Blood Gas Blood venous Specimen Source Arterial Blood 02/08/2019 6:00:5 Date Drawn 1 AM Arterial Blood VENOUS LINE Gas Puncture Site Kelvin Test N/A Venous Blood pH 7.341 Venous Blood pCO2 40.3 (Temp Corrected) Venous Blood pO2 30.3 H (Temp Corrected) Venous Blood HCO3 21.3 L Venous Blood 55.5 Oxygen Saturation Venous Blood Base -4.1 Excess Venous Blood 12.6 Total Hemoglobin Venous Blood 55.2 Oxyhemoglobin Venous Blood 0.2 Methemoglobin Carboxyhemoglobin 0.4 Blood Gas 37.0 Temperature Blood Gas Actual 18 Respiration Rate Blood Gas NASAL CANNULA Modality FiO2 33.0 Blood Gas Notified Whom Blood Gas 02/08/2019 6:17:5 Notified Time 9 AM Bedside Glucose 200 188 Test 02/08/19 08:16 02/08/19 09:18 02/08/19 09:54 02/08/19 09:58 Bedside Glucose 199 176 179 Sodium Level 135 Potassium Level 3.6 Chloride Level 105 Carbon Dioxide 23 Level Anion Gap 7 Blood Urea 32 H Nitrogen Creatinine 1.29 H Est Glomerular Filtrat Rate mL/min Glucose Level 186 Calcium Level 8.4 Phosphorus Level 1.6 L Magnesium Level 2.0 Test 02/08/19 12:27 02/08/19 13:24 02/08/19 13:42 02/08/19 17:18 Bedside Glucose 80 55 L 77 27 *L Test 02/08/19 17:53 02/08/19 18:17 02/08/19 18:32 02/08/19 20:40 Bedside Glucose 48 *L 92 155 167 Test 02/09/19 03:12 02/09/19 03:40 02/09/19 03:56 Bedside Glucose 67 L 99 114 Subjective 24 Hr Interval Summary Free Text/Dictation BS- 114 . STABLE Exam/Review of Systems Exam Vitals Vital Signs Date Temp Pulse Resp B/P (MAP) Pulse Ox O2 O2 Flow FiO2 Time Delivery Rate 02/09/19 98.2 79 18 120/69 97 04:31 (86) 02/09/19 3.0 30 02:10 02/08/19 Nasal 22:00 Cannula Intake and Output 02/08/19 02/08/19 02/09/19 1515:00 23:00 07:00 IntakeIntake Total 1544 ml 329 ml OutputOutput Total 3600 ml BalanceBalance 1544 ml -3271 ml Results Results 24hrs Laboratory Tests Test 02/08/19 05:49 02/08/19 05:50 02/08/19 06:05 02/08/19 06:56 Sodium Level 137 Potassium Level 4.7 Chloride Level 103 Carbon Dioxide 20 L Level Anion Gap 14 H Blood Urea 39 H Nitrogen Creatinine 1.68 H Est Glomerular Filtrat Rate mL/min Glucose Level 189 Hemoglobin A1c 11.1 H Calcium Level 9.0 Phosphorus Level 2.5 Magnesium Level 2.1 Thyroid 0.582 Stimulating Hormone (TSH) Blood Gas Blood venous Specimen Source Arterial Blood 02/08/2019 6:00:5 Date Drawn 1 AM Arterial Blood VENOUS LINE Gas Puncture Site Kelvin Test N/A Venous Blood pH 7.341 Venous Blood pCO2 40.3 (Temp Corrected) Venous Blood pO2 30.3 H (Temp Corrected) Venous Blood HCO3 21.3 L Venous Blood 55.5 Oxygen Saturation Venous Blood Base -4.1 Excess Venous Blood 12.6 Total Hemoglobin Venous Blood 55.2 Oxyhemoglobin Venous Blood 0.2 Methemoglobin Carboxyhemoglobin 0.4 Blood Gas 37.0 Temperature Blood Gas Actual 18 Respiration Rate Blood Gas NASAL CANNULA Modality FiO2 33.0 Blood Gas Notified Whom Blood Gas 02/08/2019 6:17:5 Notified Time 9 AM Bedside Glucose 200 188 Test 02/08/19 08:16 02/08/19 09:18 02/08/19 09:54 02/08/19 09:58 Bedside Glucose 199 176 179 Sodium Level 135 Potassium Level 3.6 Chloride Level 105 Carbon Dioxide 23 Level Anion Gap 7 Blood Urea 32 H Nitrogen Creatinine 1.29 H Est Glomerular Filtrat Rate mL/min Glucose Level 186 Calcium Level 8.4 Phosphorus Level 1.6 L Magnesium Level 2.0 Test 02/08/19 12:27 02/08/19 13:24 02/08/19 13:42 02/08/19 17:18 Bedside Glucose 80 55 L 77 27 *L Test 02/08/19 17:53 02/08/19 18:17 02/08/19 18:32 02/08/19 20:40 Bedside Glucose 48 *L 92 155 167 Test 02/09/19 03:12 02/09/19 03:40 02/09/19 03:56 Bedside Glucose 67 L 99 114 Medications Medication Current Medications Potassium Chloride 50 ml @ 50 mls/hr K PROTOCOL PRN IVPB PENDING LAB VALUE; Start 02/08/19 at 02:00 Pantoprazole (Protonix Tab) 40 mg DAILY@06 PO Last administered on 02/08/19at 06:10; Admin Dose 40 MG; Start 02/08/19 at 06:00 Acetaminophen (Tylenol Tab) 650 mg Q4H PRN PO MILD PAIN(1-3)OR ELEVATED TEMP; Start 02/08/19 at 02:00 Ondansetron HCl (Zofran Inj) 4 mg Q6H PRN IV NAUSEA AND/OR VOMITING; Start 02/08/19 at 02:00 Zolpidem Tartrate (Ambien) 5 mg HS PRN PO INSOMNIA; Start 02/08/19 at 02:00 Quetiapine Fumarate (Seroquel) 25 mg TID PO Last administered on 02/08/19at 20:43; Admin Dose 25 MG; Start 02/08/19 at 09:00 Levetiracetam (Keppra) 1,000 mg BID PO Last administered on 02/08/19at 20:42; Admin Dose 1,000 MG; Start 02/08/19 at 09:00 Diagnostic Test (Pha) (Accu-Chek) 1 ea 02 XX ; Start 02/09/19 at 02:00 Insulin Glargine (Lantus) 13 units DAILY@2000 SC Last administered on 02/08/19at 20:54; Admin Dose 13 UNITS; Start 02/08/19 at 20:00 Insulin Aspart (Novolog Insulin Pen) 6 unit WITH MEALS SC ; Start 02/08/19 at 17:35 Insulin Aspart (Novolog Insulin Pen) NOVOLOG *MILD* ALGORITHM WITH MEALS BEDTIME SC ; Start 02/08/19 at 17:35 Miscellaneous Information 1 ea NOTE XX ; Start 02/08/19 at 20:00 Glucose (Glutose) 15 gm Q15M PRN PO DECREASED GLUCOSE; Start 02/08/19 at 20:00 Glucose (Glutose) 22.5 gm Q15M PRN PO DECREASED GLUCOSE; Start 02/08/19 at 20:00 Dextrose (D50w Syringe) 25 ml Q15M PRN IV DECREASED GLUCOSE; Start 02/08/19 at 20:00 Dextrose (D50w Syringe) 50 ml Q15M PRN IV DECREASED GLUCOSE; Start 02/08/19 at 20:00 Glucagon (Glucagen) 1 mg Q15M PRN IM DECREASED GLUCOSE; Start 02/08/19 at 20:00 Glucose (Glutose) 15 gm Q15M PRN BUCCAL DECREASED GLUCOSE; Start 02/08/19 at 20:00 Enoxaparin Sodium (Lovenox) 30 mg DAILY SC ; Start 02/09/19 at 09:00 ELIECER ROSS Feb 09, 2019 05:06
[2019-02-09] MEDS: PANTOPRAZOLE (EC) 40 MG TAB PO SCH (05:25)
[2019-02-09] MEDS: INSULIN ASPART [NOVOLOG] 3 ML PEN SC SCH ×7 (07:50→20:22)
[2019-02-09] MEDS: QUETIAPINE 25 MG TAB PO SCH ×3 (08:37→20:21)
[2019-02-09] MEDS: LEVETIRACETAM 500 MG TAB PO SCH ×2 (08:37→20:21)
[2019-02-09] MEDS: ENOXAPARIN 30 MG/0.3 ML SYG SC SCH (08:44)
--- NOTE | 2019-02-09 17:43 | CONS ---
Assessment/Plan Assessment/Plan Problems: (1) Type 2 diabetes mellitus with hyperglycemia Status: Chronic Comment: Against my orders and for reasons unclear to me patient had scheduled Novolog initiated w/o advancing diet even though order was filed in pharmacy as "pending dietary advancement." Pt. has had hypoglycemia today. Will cont. current insulin doses and advance diet to soft carb-controlled. Reeval tomorrow. Qualifiers: Diabetes mellitus [facility] insulin use: with terminal system operator use Qualified Codes: E11.65 - Type 2 diabetes mellitus with hyperglycemia; Z79.4 - MCC (current) use of insulin Consultation Date/Type/Reason Admit Date/Time Feb 07, 2019 at 18:24 Initial Consult Date 02/08/19 Type of Consult Endocrinology Reason for Consultation DKA Requesting Provider: ANAIS DOWNS Date/Time of Note DATE: 02/09/19 TIME: 17:38 24 HR Interval Summary Constitutional: no complaints, disoriented Exam/Review of Systems Exam Vitals VS - Last 72 Hours, by Label Date Temp Pulse Resp B/P (MAP) Pulse Ox O2 O2 Flow FiO2 Time Delivery Rate 02/09/19 73 16:33 02/09/19 98.2 77 18 126/66 96 15:24 (86) 02/09/19 79 12:21 02/09/19 98.3 79 19 169/77 96 11:13 (107) 02/09/19 87 09:16 02/09/19 Nasal 3.0 08:03 Cannula 02/09/19 98.2 76 18 136/74 96 07:13 (94) 02/09/19 98.2 79 18 120/69 97 04:31 (86) 02/09/19 97.9 79 18 142/78 98 04:28 (99) 02/09/19 78 04:00 02/09/19 3.0 30 02:10 02/09/19 72 00:22 02/08/19 97.8 75 18 148/72 98 23:47 (97) 02/08/19 97.8 79 18 136/72 100 22:27 (93) 02/08/19 78 22:06 02/08/19 Nasal 3.0 22:00 Cannula 02/08/19 3.0 21:16 02/08/19 100 4.0 33 21:04 02/08/19 77 16 158/86 100 Nasal 21:00 (110) Cannula 02/08/19 Nasal 4.0 20:00 Cannula 02/08/19 73 20:00 02/08/19 98.5 75 17 157/66 100 Nasal 20:00 (96) Cannula 02/08/19 74 17 157/63 100 Nasal 19:00 (94) Cannula 02/08/19 59 31 155/82 100 Nasal 18:00 (106) Cannula 02/08/19 69 15 100/50 100 Nasal 17:00 (67) Cannula 02/08/19 98.2 74 18 107/52 99 Nasal 16:00 (70) Cannula 02/08/19 73 16:00 02/08/19 75 17 110/67 99 Nasal 15:00 (81) Cannula 02/08/19 69 15 121/76 100 Nasal 14:00 (91) Cannula 02/08/19 68 12 92/49 (63) 100 Nasal 13:00 Cannula 02/08/19 70 12:00 02/08/19 98.4 76 14 97/62 (74) 100 Nasal 12:00 Cannula 02/08/19 72 15 91/55 (67) 100 Nasal 11:00 Cannula 02/08/19 87 17 98/62 (74) 100 Nasal 10:00 Cannula 02/08/19 77 14 90/48 (62) 100 Nasal 09:00 Cannula 02/08/19 Nasal 4.0 08:00 Cannula 02/08/19 71 08:00 02/08/19 98.2 73 21 109/54 100 Nasal 08:00 (72) Cannula 02/08/19 73 16 108/52 100 Nasal 07:00 (70) Cannula 02/08/19 77 15 119/59 100 Nasal 06:00 (79) Cannula 02/08/19 65 19 109/64 100 Nasal 05:00 (79) Cannula 02/08/19 76 04:00 02/08/19 98.5 75 24 109/49 100 Nasal 04:00 (69) Cannula 02/08/19 75 17 128/59 100 Nasal 03:00 (82) Cannula 02/08/19 Nasal 4.0 02:10 Cannula 02/08/19 98.2 86 19 145/51 100 Nasal 02:00 (82) Cannula 02/08/19 87 01:44 02/08/19 97.7 79 22 141/56 100 Nasal 2.0 00:30 (84) Cannula 02/07/19 97.7 93 24 131/59 100 Nasal 2.0 23:30 (83) Cannula 02/07/19 95 24 115/37 100 Nasal 2.0 22:30 (63) Cannula 02/07/19 97.7 81 20 98/34 (55) 100 Room Air 19:00 02/07/19 97.7 99 20 101/55 98 Room Air 16:17 (70) 02/07/19 97.7 93 20 86/51 (63) 98 15:59 Vital Signs Date Temp Pulse Resp B/P (MAP) Pulse Ox O2 O2 Flow FiO2 Time Delivery Rate 02/09/19 73 16:33 02/09/19 98.2 18 126/66 96 15:24 (86) 02/09/19 Nasal 3.0 08:03 Cannula 02/09/19 30 02:10 Intake and Output 02/08/19 02/08/19 02/09/19 1515:00 23:00 07:00 IntakeIntake Total 1544 ml 329 ml 300 ml OutputOutput Total 3600 ml BalanceBalance 1544 ml -3271 ml 300 ml Constitutional: alert, well developed Psych: confusion Respiratory: clear to auscultation, normal air movement Cardiovascular: regular rate and rhythm, nl pulses; No edema, No murmurs/extra sounds, No rub Gastrointestinal: soft, nl liver, spleen, non-tender, bowel sounds; No mass, No rebound or guarding Musculoskeletal: nl extremities to inspection Extremities: normal pulses; No cyanosis, No clubbing, No edema 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: OIM ARCHITECT II-XII intact, nl speech, nl strength, confused; No nl mental status Additional Comments Bedside Glucose - 72 Hours Test 02/07/19 16:03 02/07/19 19:26 02/07/19 20:40 02/07/19 22:12 Bedside 435 691 747 563 Glucose mg/dL (70-220) mg/dL (70-220) mg/dL (70-220) mg/dL (70-220) *H *H *H *H Test 02/07/19 23:12 02/08/19 00:09 02/08/19 01:11 02/08/19 02:12 Bedside 547 507 420 312 Glucose mg/dL (70-220) mg/dL (70-220) mg/dL (70-220) mg/dL (70-220) *H *H *H H Test 02/08/19 03:07 02/08/19 03:59 02/08/19 04:56 02/08/19 06:05 Bedside 257 324 218 200 Glucose mg/dL (70-220) mg/dL (70-220) mg/dL (70-220) mg/dL (70-220) H H Test 02/08/19 06:56 02/08/19 08:16 02/08/19 09:18 02/08/19 09:58 Bedside 188 199 176 179 Glucose mg/dL (70-220) mg/dL (70-220) mg/dL (70-220) mg/dL (70-220) Test 02/08/19 12:27 02/08/19 13:24 02/08/19 13:42 02/08/19 17:18 Bedside 80 55 77 27 Glucose mg/dL (70-220) mg/dL (70-220) mg/dL (70-220) mg/dL (70-220) L *L Test 02/08/19 17:53 02/08/19 18:17 02/08/19 18:32 02/08/19 20:40 Bedside 48 92 155 167 Glucose mg/dL (70-220) mg/dL (70-220) mg/dL (70-220) mg/dL (70-220) *L Test 02/09/19 03:12 02/09/19 03:40 02/09/19 03:56 02/09/19 07:50 Bedside 67 99 114 94 Glucose mg/dL (70-220) mg/dL (70-220) mg/dL (70-220) mg/dL (70-220) L Test 02/09/19 11:52 02/09/19 12:05 02/09/19 12:22 02/09/19 17:08 Bedside 51 49 179 140 Glucose mg/dL (70-220) mg/dL (70-220) mg/dL (70-220) mg/dL (70-220) L *L Results Result Diagram: 02/09/19 0513 02/09/19 0513 Results 24hrs Laboratory Tests Test 02/08/19 17:53 02/08/19 18:17 02/08/19 18:32 02/08/19 20:40 Bedside Glucose 48 *L 92 155 167 Test 02/09/19 03:12 02/09/19 03:40 02/09/19 03:56 02/09/19 05:13 Bedside Glucose 67 L 99 114 White Blood Count 7.2 # Red Blood Count 4.06 L Hemoglobin 11.9 L Hematocrit 35.8 L Mean Corpuscular 88.2 Volume Mean Corpuscular 29.3 Hemoglobin Mean Corpuscular 33.2 Hemoglobin Concent Red Cell 13.6 Distribution Width Platelet Count 185 # Mean Platelet Volume 10.8 H Immature 0.400 Granulocytes % Neutrophils % 65.5 Lymphocytes % 22.9 Monocytes % 8.9 Eosinophils % 2.2 Basophils % 0.1 Nucleated Red Blood 0.0 Cells % Immature 0.030 Granulocytes # Neutrophils # 4.7 Lymphocytes # 1.7 Monocytes # 0.6 Eosinophils # 0.2 Basophils # 0.0 Nucleated Red Blood 0.0 Cells # Sodium Level 138 Potassium Level 3.7 Chloride Level 103 Carbon Dioxide Level 25 Anion Gap 10 Blood Urea Nitrogen 16 # Creatinine 0.82 Est Glomerular Filtrat Rate mL/min Glucose Level 119 # Calcium Level 8.9 Phosphorus Level 2.6 Magnesium Level 1.8 Test 02/09/19 07:50 02/09/19 11:52 02/09/19 12:05 02/09/19 12:22 Bedside Glucose 94 51 L 49 *L 179 Test 02/09/19 17:08 Bedside Glucose 140 Medications Medication Current Medications Potassium Chloride 50 ml @ 50 mls/hr K PROTOCOL PRN IVPB PENDING LAB VALUE; Start 02/08/19 at 02:00 Pantoprazole (Protonix Tab) 40 mg DAILY@06 PO Last administered on 02/09/19at 05:25; Admin Dose 40 MG; Start 02/08/19 at 06:00 Acetaminophen (Tylenol Tab) 650 mg Q4H PRN PO MILD PAIN(1-3)OR ELEVATED TEMP; Start 02/08/19 at 02:00 Ondansetron HCl (Zofran Inj) 4 mg Q6H PRN IV NAUSEA AND/OR VOMITING; Start 02/08/19 at 02:00 Zolpidem Tartrate (Ambien) 5 mg HS PRN PO INSOMNIA; Start 02/08/19 at 02:00 Quetiapine Fumarate (Seroquel) 25 mg TID PO Last administered on 02/09/19at 08:37; Admin Dose 25 MG; Start 02/08/19 at 09:00 Levetiracetam (Keppra) 1,000 mg BID PO Last administered on 02/09/19 08:37; Admin Dose 1,000 MG; Start 02/08/19 at 09:00 Diagnostic Test (Pha) (Accu-Chek) 1 ea 02 XX ; Start 02/09/19 at 02:00 Insulin Glargine (Lantus) 13 units DAILY@2000 SC Last administered on 02/08/19at 20:54; Admin Dose 13 UNITS; Start 02/08/19 at 20:00 Insulin Aspart (Novolog Insulin Pen) 6 unit WITH MEALS SC Last administered on 02/09/19at 07:54; Admin Dose 6 UNIT; Start 02/08/19 at 17:35 Insulin Aspart (Novolog Insulin Pen) NOVOLOG *MILD* ALGORITHM WITH MEALS BEDT JACK SC ; Start 02/08/19 at 17:35 Miscellaneous Information 1 ea NOTE XX ; Start 02/08/19 at 20:00 Glucose (Glutose) 15 gm Q15M PRN PO DECREASED GLUCOSE; Start 02/08/19 at 20:00 Glucose (Glutose) 22.5 gm Q15M PRN PO DECREASED GLUCOSE; Start 02/08/19 at 20:00 Dextrose (D50w Syringe) 25 ml Q15M PRN IV DECREASED GLUCOSE Last administered on 02/09/19at 12:16; Admin Dose 25 ML; Start 02/08/19 at 20:00 Dextrose (D50w Syringe) 50 ml Q15M PRN IV DECREASED GLUCOSE; Start 02/08/19 at 20:00 Glucagon (Glucagen) 1 mg Q15M PRN IM DECREASED GLUCOSE; Start 02/08/19 at 20:00 Glucose (Glutose) 15 gm Q15M PRN BUCCAL DECREASED GLUCOSE; Start 02/08/19 at 20:00 Enoxaparin Sodium (Lovenox) 30 mg DAILY SC Last administered on 02/09/19at 08:44; Admin Dose 30 MG; Start 02/09/19 at 09:00 RUBIN CHACON MD Feb 09, 2019 17:43
[2019-02-09] MEDS: INSULIN GLARGINE [LANTus] (100 UNITS/ML) SYG SC SCH (20:53)
[2019-02-10] VITALS (11 sets, daily range): BP systolic 107–160; BP diastolic 53–79; PULSE 70–96; RESP 18
[2019-02-10] MEDS: ACCU-CHEK XX SCH (02:00)
[2019-02-10] MEDS: PANTOPRAZOLE (EC) 40 MG TAB PO SCH (05:15)
[2019-02-10] MEDS: INSULIN ASPART [NOVOLOG] 3 ML PEN SC SCH ×7 (07:55→20:08)
[2019-02-10] MEDS: LEVETIRACETAM 500 MG TAB PO SCH ×2 (08:24→20:09)
[2019-02-10] MEDS: QUETIAPINE 25 MG TAB PO SCH ×3 (08:25→20:08)
[2019-02-10] MEDS: ENOXAPARIN 30 MG/0.3 ML SYG SC SCH (08:33)
--- NOTE | 2019-02-10 09:16 | PN ---
Date/Time of Note Date/Time of Note DATE: 02/10/19 TIME: 09:15 Assessment/Plan VTE Prophylaxis Risk score (from Nsg)>0 risk: 4 SCD applied (from Nsg): Yes Lines/Catheters IV Catheter Type (from Nrsg): Saline Lock Assessment/Plan Assessment/Plan -DKA in patient with diabetes mellitus with hemoglobin A1c of 11, continue insulin drip, monitor electrolytes, ABG, continue ICU care. Dr. Sanchez is asked to see patient in endocrinology consultation. -Systemic inflammatory response syndrome with leukocytosis most likely secondary to DKA. -Acute kidney injury, continue IV fluids, monitor electrolytes -Epilepsy, continue Keppra -Hypertension, continue lisinopril Further recommendations based on clinical course. Plan of care discussed with Dr. Valdivia. Result Diagram: 02/09/1951202/09/19512 Results 24hrs Laboratory Tests Test 02/09/19 11:52 02/09/19 12:05 02/09/19 12:22 02/09/19 17:08 Bedside Glucose 51 L 49 *L 179 140 Test 02/09/19 20:20 02/10/19 07:41 Bedside Glucose 133 337 H Exam/Review of Systems Exam Vitals Vital Signs Date Temp Pulse Resp B/P (MAP) Pulse Ox O2 O2 Flow FiO2 Time Delivery Rate 02/10/19 94 08:00 02/10/19 98.3 18 138/67 96 07:28 (90) 02/09/19 Nasal 3.0 20:00 Cannula 02/09/19 30 02:10 Intake and Output 02/09/19 02/09/19 02/10/19 1515:00 23:00 07:00 IntakeIntake Total 720 ml 450 ml 200 ml OutputOutput Total 300 ml 1050 ml BalanceBalance 720 ml 150 ml -850 ml Results Results 24hrs Laboratory Tests Test 02/09/19 11:52 02/09/19 12:05 02/09/19 12:22 02/09/19 17:08 Bedside Glucose 51 L 49 *L 179 140 Test 02/09/19 20:20 02/10/19 07:41 Bedside Glucose 133 337 H Medications Medication Current Medications Pantoprazole (Protonix Tab) 40 mg DAILY@06 PO Last administered on 02/10/19at 05:15; Admin Dose 40 MG; Start 02/08/19 at 06:00 Acetaminophen (Tylenol Tab) 650 mg Q4H PRN PO MILD PAIN(1-3)OR ELEVATED TEMP; Start 02/08/19 at 02:00 Ondansetron HCl (Zofran Inj) 4 mg Q6H PRN IV NAUSEA AND/OR VOMITING; Start 02/08/19 at 02:00 Zolpidem Tartrate (Ambien) 5 mg HS PRN PO INSOMNIA; Start 02/08/19 at 02:00 Quetiapine Fumarate (Seroquel) 25 mg TID PO Last administered on 02/10/19at 08:25; Admin Dose 25 MG; Start 02/08/19 at 09:00 Levetiracetam (Keppra) 1,000 mg BID PO Last administered on 02/10/19at 08:24; Admin Dose 1,000 MG; Start 02/08/19 at 09:00 Diagnostic Test (Pha) (Accu-Chek) 1 ea 02 XX ; Start 02/09/19 at 02:00 Insulin Glargine (Lantus) 13 units DAILY@2000 SC Last administered on 02/09/19at 20:53; Admin Dose 13 UNITS; Start 02/08/19 at 20:00 Insulin Aspart (Novolog Insulin Pen) 6 unit WITH MEALS SC Last administered on 02/10/19at 07:55; Admin Dose 6 UNIT; Start 02/08/19 at 17:35 Insulin Aspart (Novolog Insulin Pen) NOVOLOG *MILD* ALGORITHM WITH MEALS BEDTIME SC Last administered on 02/10/19at 07:57; Admin Dose 5 UNIT; Start 02/08/19 at 17:35 Miscellaneous Information 1 ea NOTE XX ; Start 02/08/19 at 20:00 Glucose (Glutose) 15 gm Q15M PRN PO DECREASED GLUCOSE; Start 02/08/19 at 20:00 Glucose (Glutose) 22.5 gm Q15M PRN PO DECREASED GLUCOSE; Start 02/08/19 at 20:00 Dextrose (D50w Syringe) 25 ml Q15M PRN IV DECREASED GLUCOSE Last administered on 02/09/19at 12:16; Admin Dose 25 ML; Start 02/08/19 at 20:00 Dextrose (D50w Syringe) 50 ml Q15M PRN IV DECREASED GLUCOSE; Start 02/08/19 at 20:00 Glucagon (Glucagen) 1 mg Q15M PRN IM DECREASED GLUCOSE; Start 02/08/19 at 20:00 Glucose (Glutose) 15 gm Q15M PRN BUCCAL DECREASED GLUCOSE; Start 02/08/19 at 20:00 Enoxaparin Sodium (Lovenox) 30 mg DAILY SC Last administered on 02/10/19at 08:33; Admin Dose 30 MG; Start 02/09/19 at 09:00 ELIECER ROSS Feb 10, 2019 09:16
--- NOTE | 2019-02-10 10:23 | CONS ---
Assessment/Plan Assessment/Plan Problems: (1) Type 2 diabetes mellitus with hyperglycemia Status: Chronic Comment: Nellie profoundly hyperglycemic this am. He did receive his lantus last night when BG in goal range. Uncertain if he was given hs snack. Will increase lantus to 18 units qhs and monitor BG. If this is a one-off, no need for further dose increases. However, if hyperglycemic all day, will increase all insulin doses accordingly. Qualifiers: Diabetes mellitus long term care administrator insulin use: with long term care administrator use Qualified Codes: E11.65 - Type 2 diabetes mellitus with hyperglycemia; Z79.4 - terminal operator (current) use of insulin Consultation Date/Type/Reason Admit Date/Time Feb 07, 2019 at 18:24 Initial Consult Date 02/08/19 Type of Consult Endocrinology Reason for Consultation DKA Requesting Provider: ANAIS DOWNS Date/Time of Note DATE: 02/10/19 TIME: 10:21 24 HR Interval Summary Constitutional: no complaints, disoriented Exam/Review of Systems Exam Vitals VS - Last 72 Hours, by Label Date Temp Pulse Resp B/P (MAP) Pulse Ox O2 O2 Flow FiO2 Time Delivery Rate 02/10/19 94 08:00 02/10/19 98.3 89 18 138/67 96 07:28 (90) 02/10/19 98.2 75 18 129/71 100 04:00 (90) 02/10/19 70 04:00 02/10/19 88 00:00 02/10/19 98.4 79 18 107/53 99 00:00 (71) 02/09/19 Nasal 3.0 20:00 Cannula 02/09/19 98.3 77 18 117/58 100 20:00 (77) 02/09/19 96 20:00 02/09/19 73 16:33 02/09/19 98.2 77 18 126/66 96 15:24 (86) 02/09/19 79 12:21 02/09/19 98.3 79 19 169/77 96 11:13 (107) 02/09/19 87 09:16 02/09/19 Nasal 3.0 08:03 Cannula 02/09/19 98.2 76 18 136/74 96 07:13 (94) 02/09/19 98.2 79 18 120/69 97 04:31 (86) 02/09/19 97.9 79 18 142/78 98 04:28 (99) 02/09/19 78 04:00 02/09/19 3.0 30 02:10 02/09/19 72 00:22 02/08/19 97.8 75 18 148/72 98 23:47 (97) 02/08/19 97.8 79 18 136/72 100 22:27 (93) 02/08/19 78 22:06 02/08/19 Nasal 3.0 22:00 Cannula 02/08/19 3.0 21:16 02/08/19 100 4.0 33 21:04 02/08/19 77 16 158/86 100 Nasal 21:00 (110) Cannula 02/08/19 Nasal 4.0 20:00 Cannula 02/08/19 73 20:00 02/08/19 98.5 75 17 157/66 100 Nasal 20:00 (96) Cannula 02/08/19 74 17 157/63 100 Nasal 19:00 (94) Cannula 02/08/19 59 31 155/82 100 Nasal 18:00 (106) Cannula 02/08/19 69 15 100/50 100 Nasal 17:00 (67) Cannula 02/08/19 98.2 74 18 107/52 99 Nasal 16:00 (70) Cannula 02/08/19 73 16:00 02/08/19 75 17 110/67 99 Nasal 15:00 (81) Cannula 02/08/19 69 15 121/76 100 Nasal 14:00 (91) Cannula 02/08/19 68 12 92/49 (63) 100 Nasal 13:00 Cannula 02/08/19 70 12:00 02/08/19 98.4 76 14 97/62 (74) 100 Nasal 12:00 Cannula 02/08/19 72 15 91/55 (67) 100 Nasal 11:00 Cannula 02/08/19 87 17 98/62 (74) 100 Nasal 10:00 Cannula 02/08/19 77 14 90/48 (62) 100 Nasal 09:00 Cannula 02/08/19 Nasal 4.0 08:00 Cannula 02/08/19 71 08:00 02/08/19 98.2 73 21 109/54 100 Nasal 08:00 (72) Cannula 02/08/19 73 16 108/52 100 Nasal 07:00 (70) Cannula 02/08/19 77 15 119/59 100 Nasal 06:00 (79) Cannula 02/08/19 65 19 109/64 100 Nasal 05:00 (79) Cannula 02/08/19 76 04:00 02/08/19 98.5 75 24 109/49 100 Nasal 04:00 (69) Cannula 02/08/19 75 17 128/59 100 Nasal 03:00 (82) Cannula 02/08/19 Nasal 4.0 02:10 Cannula 02/08/19 98.2 86 19 145/51 100 Nasal 02:00 (82) Cannula 02/08/19 87 01:44 02/08/19 97.7 79 22 141/56 100 Nasal 2.0 00:30 (84) Cannula 02/07/19 97.7 93 24 131/59 100 Nasal 2.0 23:30 (83) Cannula 02/07/19 95 24 115/37 100 Nasal 2.0 22:30 (63) Cannula 02/07/19 97.7 81 20 98/34 (55) 100 Room Air 19:00 02/07/19 97.7 99 20 101/55 98 Room Air 16:17 (70) 02/07/19 97.7 93 20 86/51 (63) 98 15:59 Vital Signs Date Temp Pulse Resp B/P (MAP) Pulse Ox O2 O2 Flow FiO2 Time Delivery Rate 02/10/19 94 08:00 02/10/19 98.3 18 138/67 96 07:28 (90) 02/09/19 Nasal 3.0 20:00 Cannula 02/09/19 30 02:10 Intake and Output 02/09/19 02/09/19 02/10/19 1515:00 23:00 07:00 IntakeIntake Total 720 ml 450 ml 200 ml OutputOutput Total 300 ml 1050 ml BalanceBalance 720 ml 150 ml -850 ml Constitutional: alert, well developed; No oriented Psych: no complaints, nl mood/affect Respiratory: clear to auscultation, normal air movement Cardiovascular: regular rate and rhythm, nl pulses; No edema, No murmurs/extra sounds, No rub Gastrointestinal: soft, nl liver, spleen, non-tender, bowel sounds; No mass, No rebound or guarding Musculoskeletal: nl extremities to inspection Extremities: normal pulses; No cyanosis, No clubbing, No edema 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 SPECIALIST II-XII 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, nl speech, nl strength Additional Comments Bedside Glucose - 72 Hours Test 02/07/19 16:03 02/07/19 19:26 02/07/19 20:40 02/07/19 22:12 Bedside 435 419 501 563 Glucose mg/dL (70-220) mg/dL (70-220) mg/dL (70-220) mg/dL (70-220) *H *H *H *H Test 02/07/19 23:12 02/08/19 00:09 02/08/19 01:11 02/08/19 02:12 Bedside 545 470 420 312 Glucose mg/dL (70-220) mg/dL (70-220) mg/dL (70-220) mg/dL (70-220) *H *H *H H Test 02/08/19 03:07 02/08/19 03:59 02/08/19 04:56 02/08/19 06:05 Bedside 257 324 218 200 Glucose mg/dL (70-220) mg/dL (70-220) mg/dL (70-220) mg/dL (70-220) H H Test 02/08/19 06:56 02/08/19 08:16 02/08/19 09:18 02/08/19 09:58 Bedside 188 199 176 179 Glucose mg/dL (70-220) mg/dL (70-220) mg/dL (70-220) mg/dL (70-220) Test 02/08/19 12:27 02/08/19 13:24 02/08/19 13:42 02/08/19 17:18 Bedside 80 55 77 27 Glucose mg/dL (70-220) mg/dL (70-220) mg/dL (70-220) mg/dL (70-220) L *L Test 02/08/19 17:53 02/08/19 18:17 02/08/19 18:32 02/08/19 20:40 Bedside 48 92 155 167 Glucose mg/dL (70-220) mg/dL (70-220) mg/dL (70-220) mg/dL (70-220) *L Test 02/09/19 03:12 02/09/19 03:40 02/09/19 03:56 02/09/19 07:50 Bedside 67 99 114 94 Glucose mg/dL (70-220) mg/dL (70-220) mg/dL (70-220) mg/dL (70-220) L Test 02/09/19 11:52 02/09/19 12:05 02/09/19 12:22 02/09/19 17:08 Bedside 51 49 179 140 Glucose mg/dL (70-220) mg/dL (70-220) mg/dL (70-220) mg/dL (70-220) L *L Test 02/09/19 20:20 02/10/19 07:41 Bedside 133 337 Glucose mg/dL (70-220) mg/dL (70-220) H Results Result Diagram: 02/09/1951202/09/19512 Results 24hrs Laboratory Tests Test 02/09/19 11:52 02/09/19 12:05 02/09/19 12:22 02/09/19 17:08 Bedside Glucose 51 L 49 *L 179 140 Test 02/09/19 20:20 02/10/19 07:41 Bedside Glucose 133 337 H Medications Medication Current Medications Pantoprazole (Protonix Tab) 40 mg DAILY@06 PO Last administered on 02/10/19at 05:15; Admin Dose 40 MG; Start 02/08/19 at 06:00 Acetaminophen (Tylenol Tab) 650 mg Q4H PRN PO MILD PAIN(1-3)OR ELEVATED TEMP; Start 02/08/19 at 02:00 Ondansetron HCl (Zofran Inj) 4 mg Q6H PRN IV NAUSEA AND/OR VOMITING; Start 02/08/19 at 02:00 Zolpidem Tartrate (Ambien) 5 mg HS PRN PO INSOMNIA; Start 02/08/19 at 02:00 Quetiapine Fumarate (Seroquel) 25 mg TID PO Last administered on 02/10/19at 08:25; Admin Dose 25 MG; Start 02/08/19 at 09:00 Levetiracetam (Keppra) 1,000 mg BID PO Last administered on 02/10/19at 08:24; Admin Dose 1,000 MG; Start 02/08/19 at 09:00 Diagnostic Test (Pha) (Accu-Chek) 1 ea 02 XX ; Start 02/09/19 at 02:00 Insulin Aspart (Novolog Insulin Pen) 6 unit WITH MEALS SC Last administered on 02/10/19at 07:55; Admin Dose 6 UNIT; Start 02/08/19 at 17:35 Insulin Aspart (Novolog Insulin Pen) NOVOLOG *MILD* ALGORITHM WITH MEALS BEDTIME SC Last administered on 02/10/19at 07:57; Admin Dose 5 UNIT; Start 02/08/19 at 17:35 Miscellaneous Information 1 ea NOTE XX ; Start 02/08/19 at 20:00 Glucose (Glutose) 15 gm Q15M PRN PO DECREASED GLUCOSE; Start 02/08/19 at 20:00 Glucose (Glutose) 22.5 gm Q15M PRN PO DECREASED GLUCOSE; Start 02/08/19 at 20:00 Dextrose (D50w Syringe) 25 ml Q15M PRN IV DECREASED GLUCOSE Last administered on 02/09/19at 12:16; Admin Dose 25 ML; Start 02/08/19 at 20:00 Dextrose (D50w Syringe) 50 ml Q15M PRN IV DECREASED GLUCOSE; Start 02/08/19 at 20:00 Glucagon (Glucagen) 1 mg Q15M PRN IM DECREASED GLUCOSE; Start 02/08/19 at 20:00 Glucose (Glutose) 15 gm Q15M PRN BUCCAL DECREASED GLUCOSE; Start 02/08/19 at 20:00 Enoxaparin Sodium (Lovenox) 30 mg DAILY SC Last administered on 02/10/19at 08:33; Admin Dose 30 MG; Start 02/09/19 at 09:00 Insulin Glargine (Lantus) 18 units DAILY@2000 SC ; Start 02/10/19 at 20:00 RUBIN CHACON MD Feb 10, 2019 10:23
[2019-02-10] MEDS: SENNA TAB PO SCH ×2 (12:04→20:08)
[2019-02-10] MEDS ORDERED: INSULIN GLARGINE [LANTus] (100 UNITS/ML) SYG SC SCH (20:00)
[2019-02-11] VITALS (12 sets, daily range): BP systolic 122–145; BP diastolic 67–80; PULSE 67–85; RESP 18–20
[2019-02-11] MEDS: ACCU-CHEK XX SCH (02:00)
[2019-02-11] MEDS: PANTOPRAZOLE (EC) 40 MG TAB PO SCH (06:32)
--- NOTE | 2019-02-11 07:18 | PN ---
Date/Time of Note Date/Time of Note DATE: 02/11/19 TIME: 07:18 Assessment/Plan VTE Prophylaxis Risk score (from Nsg)>0 risk: 3 SCD applied (from Nsg): Yes Lines/Catheters IV Catheter Type (from Nrsg): Saline Lock Assessment/Plan Assessment/Plan -DKA in patient with diabetes mellitus with hemoglobin A1c of 11, continue insulin drip, monitor electrolytes, ABG, continue ICU care. Dr. Sanchez is asked to see patient in endocrinology consultation. -Systemic inflammatory response syndrome with leukocytosis most likely secondary to DKA. -Acute kidney injury, continue IV fluids, monitor electrolytes -Epilepsy, continue Keppra -Hypertension, continue lisinopril Further recommendations based on clinical course. Plan of care discussed with Dr. Valdivia. Result Diagram: 02/11/19 0425 02/11/19 0425 Results 24hrs Laboratory Tests Test 02/10/19 07:41 02/10/19 11:47 02/10/19 17:14 02/10/19 20:07 Bedside Glucose 337 H 267 H 313 H 159 Test 02/11/19 04:25 White Blood Count 5.1 # Red Blood Count 4.07 L Hemoglobin 11.7 L Hematocrit 36.7 L Mean Corpuscular 90.2 Volume Mean Corpuscular 28.7 L Hemoglobin Mean Corpuscular 31.9 L Hemoglobin Concent Red Cell 13.5 Distribution Width Platelet Count 207 Mean Platelet Volume 11.0 H Immature 0.400 Granulocytes % Neutrophils % 51.9 Lymphocytes % 35.6 Monocytes % 10.1 Eosinophils % 1.8 Basophils % 0.2 Nucleated Red Blood 0.0 Cells % Immature 0.020 Granulocytes # Neutrophils # 2.6 Lymphocytes # 1.8 Monocytes # 0.5 Eosinophils # 0.1 Basophils # 0.0 Nucleated Red Blood 0.0 Cells # Sodium Level 139 Potassium Level 4.7 Chloride Level 98 Carbon Dioxide Level 32 H Anion Gap 9 Blood Urea Nitrogen 15 Creatinine 0.75 Est Glomerular Filtrat Rate mL/min Glucose Level 297 #H Calcium Level 8.9 Exam/Review of Systems Exam Vitals Vital Signs Date Temp Pulse Resp B/P (MAP) Pulse Ox O2 O2 Flow FiO2 Time Delivery Rate 02/11/19 84 04:00 02/11/19 98.1 18 145/67 98 03:15 (93) 02/10/19 Nasal 3.0 23:28 Cannula 02/09/19 30 02:10 Intake and Output 02/10/19 02/10/19 02/11/19 1515:00 23:00 07:00 IntakeIntake Total 480 ml 120 ml 350 ml OutputOutput Total 760 ml 1625 ml 900 ml BalanceBalance -280 ml -1505 ml -550 ml Results Results 24hrs Laboratory Tests Test 02/10/19 07:41 02/10/19 11:47 02/10/19 17:14 02/10/19 20:07 Bedside Glucose 337 H 267 H 313 H 159 Test 02/11/19 04:25 White Blood Count 5.1 # Red Blood Count 4.07 L Hemoglobin 11.7 L Hematocrit 36.7 L Mean Corpuscular 90.2 Volume Mean Corpuscular 28.7 L Hemoglobin Mean Corpuscular 31.9 L Hemoglobin Concent Red Cell 13.5 Distribution Width Platelet Count 207 Mean Platelet Volume 11.0 H Immature 0.400 Granulocytes % Neutrophils % 51.9 Lymphocytes % 35.6 Monocytes % 10.1 Eosinophils % 1.8 Basophils % 0.2 Nucleated Red Blood 0.0 Cells % Immature 0.020 Granulocytes # Neutrophils # 2.6 Lymphocytes # 1.8 Monocytes # 0.5 Eosinophils # 0.1 Basophils # 0.0 Nucleated Red Blood 0.0 Cells # Sodium Level 139 Potassium Level 4.7 Chloride Level 98 Carbon Dioxide Level 32 H Anion Gap 9 Blood Urea Nitrogen 15 Creatinine 0.75 Est Glomerular Filtrat Rate mL/min Glucose Level 297 #H Calcium Level 8.9 Medications Medication Current Medications Pantoprazole (Protonix Tab) 40 mg DAILY@06 PO Last administered on 02/11/19at 06:32; Admin Dose 40 MG; Start 02/08/19 at 06:00 Acetaminophen (Tylenol Tab) 650 mg Q4H PRN PO MILD PAIN(1-3)OR ELEVATED TEMP; Start 02/08/19 at 02:00 Ondansetron HCl (Zofran Inj) 4 mg Q6H PRN IV NAUSEA AND/OR VOMITING; Start 02/08/19 at 02:00 Zolpidem Tartrate (Ambien) 5 mg HS PRN PO INSOMNIA; Start 02/08/19 at 02:00 Quetiapine Fumarate (Seroquel) 25 mg TID PO Last administered on 02/10/19at 20:08; Admin Dose 25 MG; Start 02/08/19 at 09:00 Levetiracetam (Keppra) 1,000 mg BID PO Last administered on 02/10/19 20:09; Admin Dose 1,000 MG; Start 02/08/19 at 09:00 Diagnostic Test (Pha) (Accu-Chek) 1 ea 02 XX ; Start 02/09/19 at 02:00 Insulin Aspart (Novolog Insulin Pen) NOVOLOG *MILD* ALGORITHM WITH MEALS BEDTIME SC Last administered on 02/10/19 17:21; Admin Dose 5 UNIT; Start 02/08/19 at 17:35 Miscellaneous Information 1 ea NOTE XX ; Start 02/08/19 at 20:00 Glucose (Glutose) 15 gm Q15M PRN PO DECREASED GLUCOSE; Start 02/08/19 at 20:00 Glucose (Glutose) 22.5 gm Q15M PRN PO DECREASED GLUCOSE; Start 02/08/19 at 20:00 Dextrose (D50w Syringe) 25 ml Q15M PRN IV DECREASED GLUCOSE Last administered on 02/09/19at 12:16; Admin Dose 25 ML; Start 02/08/19 at 20:00 Dextrose (D50w Syringe) 50 ml Q15M PRN IV DECREASED GLUCOSE; Start 02/08/19 at 20:00 Glucagon (Glucagen) 1 mg Q15M PRN IM DECREASED GLUCOSE; Start 02/08/19 at 20:00 Glucose (Glutose) 15 gm Q15M PRN BUCCAL DECREASED GLUCOSE; Start 02/08/19 at 20:00 Enoxaparin Sodium (Lovenox) 30 mg DAILY SC Last administered on 02/10/19at 08:33; Admin Dose 30 MG; Start 02/09/19 at 09:00 Insulin Glargine (Lantus) 18 units DAILY@2000 SC Last administered on 02/10/19at 20:18; Admin Dose 18 UNITS; Start 02/10/19 at 20:00 Senna (Senokot) 2 tab BID PO Last administered on 02/10/19at 20:08; Admin Dose 2 TAB; Start 02/10/19 at 11:30 Insulin Aspart (Novolog Insulin Pen) 9 unit WITH MEALS SC ; Start 02/11/19 at 08:00 ELIECER ROSS Feb 11, 2019 07:18
[2019-02-11] MEDS: INSULIN ASPART [NOVOLOG] 3 ML PEN SC SCH ×6 (07:30→20:26)
[2019-02-11] MEDS ORDERED: INSULIN ASPART [NOVOLOG] 3 ML PEN SC SCH (08:00)
[2019-02-11] MEDS: LEVETIRACETAM 500 MG TAB PO SCH ×2 (08:21→20:16)
[2019-02-11] MEDS: SENNA TAB PO SCH ×2 (08:21→20:16)
[2019-02-11] MEDS: QUETIAPINE 25 MG TAB PO SCH ×3 (08:21→20:29)
[2019-02-11] MEDS: ENOXAPARIN 30 MG/0.3 ML SYG SC SCH (08:27)
--- NOTE | 2019-02-11 09:06 | CONS ---
Assessment/Plan Assessment/Plan Problems: (1) Type 2 diabetes mellitus with hyperglycemia Status: Chronic Comment: Glucose elevated throughout the day yesterday although was in goal last night before hs. However, this am hyperglycemic again, less so than yesterday. Will increase lantus again from 18 to 24 units for tonight. Increase Novolog from 9 to 10 units qac. Reeval tomorrow. Qualifiers: Diabetes mellitus [facility] insulin use: with [facility] use Qualified [place]: E11.65 - Type 2 diabetes mellitus with hyperglycemia; Z79.4 - meterman (current) use of insulin Consultation Date/Type/Reason Admit Date/Time Feb 07, 2019 at 18:24 Initial Consult Date 02/08/19 Type of Consult Endocrinology Reason for Consultation DKA Requesting Provider: ANAIS DOWNS Date/Time of Note DATE: 02/11/19 TIME: 09:03 24 HR Interval Summary Constitutional: no complaints, disoriented Exam/Review of Systems Exam Vitals VS - Last 72 Hours, by Label Date Temp Pulse Resp B/P (MAP) Pulse Ox O2 O2 Flow FiO2 Time Delivery Rate 02/11/19 97.5 75 20 135/72 97 Room Air 07:37 (93) 02/11/19 84 04:00 02/11/19 98.1 81 18 145/67 98 03:15 (93) 02/11/19 67 00:00 02/10/19 98.1 72 18 160/79 100 23:43 (106) 02/10/19 Nasal 3.0 23:28 Cannula 02/10/19 76 20:00 02/10/19 98.2 86 18 131/66 99 19:30 (87) 02/10/19 79 16:00 02/10/19 98.1 91 18 116/59 97 15:06 (78) 02/10/19 87 12:00 02/10/19 98.2 96 18 124/60 96 11:10 (81) 02/10/19 Nasal 3.0 09:00 Cannula 02/10/19 94 08:00 02/10/19 98.3 89 18 138/67 96 07:28 (90) 02/10/19 98.2 75 18 129/71 100 04:00 (90) 02/10/19 70 04:00 02/10/19 88 00:00 02/10/19 98.4 79 18 107/53 99 00:00 (71) 02/09/19 Nasal 3.0 20:00 Cannula 02/09/19 98.3 77 18 117/58 100 20:00 (77) 02/09/19 96 20:00 02/09/19 73 16:33 02/09/19 98.2 77 18 126/66 96 15:24 (86) 02/09/19 79 12:21 02/09/19 98.3 79 19 169/77 96 11:13 (107) 02/09/19 87 09:16 02/09/19 Nasal 3.0 08:03 Cannula 02/09/19 98.2 76 18 136/74 96 07:13 (94) 02/09/19 98.2 79 18 120/69 97 04:31 (86) 02/09/19 97.9 79 18 142/78 98 04:28 (99) 02/09/19 78 04:00 02/09/19 3.0 30 02:10 02/09/19 72 00:22 02/08/19 97.8 75 18 148/72 98 23:47 (97) 02/08/19 97.8 79 18 136/72 100 22:27 (93) 02/08/19 78 22:06 02/08/19 Nasal 3.0 22:00 Cannula 02/08/19 3.0 21:16 02/08/19 100 4.0 33 21:04 02/08/19 77 16 158/86 100 Nasal 21:00 (110) Cannula 02/08/19 Nasal 4.0 20:00 Cannula 02/08/19 73 20:00 02/08/19 98.5 75 17 157/66 100 Nasal 20:00 (96) Cannula 02/08/19 74 17 157/63 100 Nasal 19:00 (94) Cannula 02/08/19 59 31 155/82 100 Nasal 18:00 (106) Cannula 02/08/19 69 15 100/50 100 Nasal 17:00 (67) Cannula 02/08/19 98.2 74 18 107/52 99 Nasal 16:00 (70) Cannula 02/08/19 73 16:00 02/08/19 75 17 110/67 99 Nasal 15:00 (81) Cannula 02/08/19 69 15 121/76 100 Nasal 14:00 (91) Cannula 02/08/19 68 12 92/49 (63) 100 Nasal 13:00 Cannula 02/08/19 70 12:00 02/08/19 98.4 76 14 97/62 (74) 100 Nasal 12:00 Cannula 02/08/19 72 15 91/55 (67) 100 Nasal 11:00 Cannula 02/08/19 87 17 98/62 (74) 100 Nasal 10:00 Cannula Vital Signs Date Temp Pulse Resp B/P (MAP) Pulse Ox O2 O2 Flow FiO2 Time Delivery Rate 02/11/19 97.5 75 20 135/72 97 Room Air 07:37 (93) 02/10/19 3.0 23:28 02/09/19 30 02:10 Intake and Output 02/10/19 02/10/19 02/11/19 1515:00 23:00 07:00 IntakeIntake Total 480 ml 120 ml 350 ml OutputOutput Total 760 ml 1625 ml 900 ml BalanceBalance -280 ml -1505 ml -550 ml Constitutional: alert, well developed; No oriented Respiratory: clear to auscultation, normal air movement Cardiovascular: regular rate and rhythm, nl pulses; No edema, No murmurs/extra sounds, No rub Gastrointestinal: soft, nl liver, spleen, non-tender, bowel sounds; No mass, No rebound or guarding Musculoskeletal: nl extremities to inspection Extremities: normal pulses; No cyanosis, No clubbing, No edema 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: SOUP MIXER II-XII intact, nl mental status, nl speech, nl strength Additional Comments Bedside Glucose - 72 Hours Test 02/08/19 09:18 02/08/19 09:58 02/08/19 12:27 02/08/19 13:24 Bedside 176 179 80 55 Glucose mg/dL (70-220) mg/dL (70-220) mg/dL (70-220) mg/dL (70-220) L Test 02/08/19 13:42 02/08/19 17:18 02/08/19 17:53 02/08/19 18:17 Bedside 77 27 48 92 Glucose mg/dL (70-220) mg/dL (70-220) mg/dL (70-220) mg/dL (70-220) *L *L Test 02/08/19 18:32 02/08/19 20:40 02/09/19 03:12 02/09/19 03:40 Bedside 155 167 67 99 Glucose mg/dL (70-220) mg/dL (70-220) mg/dL (70-220) mg/dL (70-220) L Test 02/09/19 03:56 02/09/19 07:50 02/09/19 11:52 02/09/19 12:05 Bedside 114 94 51 49 Glucose mg/dL (70-220) mg/dL (70-220) mg/dL (70-220) mg/dL (70-220) L *L Test 02/09/19 12:22 02/09/19 17:08 02/09/19 20:20 02/10/19 07:41 Bedside 179 140 133 337 Glucose mg/dL (70-220) mg/dL (70-220) mg/dL (70-220) mg/dL (70-220) H Test 02/10/19 11:47 02/10/19 17:14 02/10/19 20:07 02/11/19 07:25 Bedside 267 313 159 249 Glucose mg/dL (70-220) mg/dL (70-220) mg/dL (70-220) mg/dL (70-220) H H H Results Result Diagram: 02/11/19 0425 02/11/19 0425 Results 24hrs Laboratory Tests Test 02/10/19 11:47 02/10/19 17:14 02/10/19 20:07 02/11/19 04:25 Bedside Glucose 267 H 313 H 159 White Blood Count 5.1 # Red Blood Count 4.07 L Hemoglobin 11.7 L Hematocrit 36.7 L Mean Corpuscular 90.2 Volume Mean Corpuscular 28.7 L Hemoglobin Mean Corpuscular 31.9 L Hemoglobin Concent Red Cell 13.5 Distribution Width Platelet Count 207 Mean Platelet Volume 11.0 H Immature 0.400 Granulocytes % Neutrophils % 51.9 Lymphocytes % 35.6 Monocytes % 10.1 Eosinophils % 1.8 Basophils % 0.2 Nucleated Red Blood 0.0 Cells % Immature 0.020 Granulocytes # Neutrophils # 2.6 Lymphocytes # 1.8 Monocytes # 0.5 Eosinophils # 0.1 Basophils # 0.0 Nucleated Red Blood 0.0 Cells # Sodium Level 139 Potassium Level 4.7 Chloride Level 98 Carbon Dioxide Level 32 H Anion Gap 9 Blood Urea Nitrogen 15 Creatinine 0.75 Est Glomerular Filtrat Rate mL/min Glucose Level 297 #H Calcium Level 8.9 Test 02/11/19 07:25 Bedside Glucose 249 H Medications Medication Current Medications Pantoprazole (Protonix Tab) 40 mg DAILY@06 PO Last administered on 02/11/19at 06:32; Admin Dose 40 MG; Start 02/08/19 at 06:00 Acetaminophen (Tylenol Tab) 650 mg Q4H PRN PO MILD PAIN(1-3)OR ELEVATED TEMP; Start 02/08/19 at 02:00 Ondansetron HCl (Zofran Inj) 4 mg Q6H PRN IV NAUSEA AND/OR VOMITING; Start 02/08/19 at 02:00 Zolpidem Tartrate (Ambien) 5 mg HS PRN PO INSOMNIA; Start 02/08/19 at 02:00 Quetiapine Fumarate (Seroquel) 25 mg TID PO Last administered on 02/11/19at 08:21; Admin Dose 25 MG; Start 02/08/19 at 09:00 Levetiracetam (Keppra) 1,000 mg BID PO Last administered on 02/11/19at 08:21; Admin Dose 1,000 MG; Start 02/08/19 at 09:00 Diagnostic Test (Pha) (Accu-Chek) 1 ea 02 XX ; Start 02/09/19 at 02:00 Insulin Aspart (Novolog Insulin Pen) NOVOLOG *MILD* ALGORITHM WITH MEALS BEDTIME SC Last administered on 02/11/19at 07:30; Admin Dose 3 UNIT; Start 02/08/19 at 17:35 Miscellaneous Information 1 ea NOTE XX ; Start 02/08/19 at 20:00 Glucose (Glutose) 15 gm Q15M PRN PO DECREASED GLUCOSE; Start 02/08/19 at 20:00 Glucose (Glutose) 22.5 gm Q15M PRN PO DECREASED GLUCOSE; Start 02/08/19 at 20:00 Dextrose (D50w Syringe) 25 ml Q15M PRN IV DECREASED GLUCOSE Last administered o n 02/09/19at 12:16; Admin Dose 25 ML; Start 02/08/19 at 20:00 Dextrose (D50w Syringe) 50 ml Q15M PRN IV DECREASED GLUCOSE; Start 02/08/19 at 20:00 Glucagon (Glucagen) 1 mg Q15M PRN IM DECREASED GLUCOSE; Start 02/08/19 at 20:00 Glucose (Glutose) 15 gm Q15M PRN BUCCAL DECREASED GLUCOSE; Start 02/08/19 at 20:00 Enoxaparin Sodium (Lovenox) 30 mg DAILY SC Last administered on 02/11/19at 08:27; Admin Dose 30 MG; Start 02/09/19 at 09:00 Senna (Senokot) 2 tab BID PO Last administered on 02/11/19at 08:21; Admin Dose 2 TAB; Start 02/10/19 at 11:30 Insulin Aspart (Novolog Insulin Pen) 10 unit WITH MEALS SC ; Start 02/11/19 at 12:00; Status UNV Insulin Glargine (Lantus) 24 units DAILY@2000 SC ; Start 02/11/19 at 20:00; Status UNV RUBIN CHACON MD Feb 11, 2019 09:05
[2019-02-11] MEDS ORDERED: INSULIN ASPART [NOVOLOG] 3 ML PEN SC ONE (18:00)
[2019-02-11] MEDS ORDERED: ACCU-CHEK XX ONE (18:00)
[2019-02-11] MEDS ORDERED: INSULIN GLARGINE [LANTus] (100 UNITS/ML) SYG SC SCH (20:00)
[2019-02-12] VITALS (12 sets, daily range): BP systolic 122–165; BP diastolic 58–86; PULSE 70–89; RESP 16–20
[2019-02-12] MEDS: ACCU-CHEK XX SCH (01:53)
[2019-02-12] MEDS: PANTOPRAZOLE (EC) 40 MG TAB PO SCH (07:14)
[2019-02-12] MEDS: SENNA TAB PO SCH ×2 (08:36→20:07)
[2019-02-12] MEDS: QUETIAPINE 25 MG TAB PO SCH ×3 (08:36→20:07)
[2019-02-12] MEDS: LEVETIRACETAM 500 MG TAB PO SCH ×2 (08:36→20:07)
[2019-02-12] MEDS: ENOXAPARIN 30 MG/0.3 ML SYG SC SCH (08:41)
[2019-02-12] MEDS: INSULIN ASPART [NOVOLOG] 3 ML PEN SC SCH ×7 (08:46→20:50)
[2019-02-12] MEDS ORDERED: INSULIN ASPART [NOVOLOG] 3 ML PEN SC ONE (13:26)
--- NOTE | 2019-02-12 13:35 | CONS ---
Assessment/Plan Assessment/Plan Problems: (1) Type 2 diabetes mellitus with hyperglycemia Status: Chronic Comment: BG erratic. Low yesterday before dinner. Hyperglycemic this am. Low again today before lunch. Was going to increase Novolog from 10 to 12 w/ breakfast based on high pre-lunch BG values the last 2 days. However, will not do that. Will cont. Novolog 10 units w/ breakfast and decrease to 8 units qac for lunch and dinner. Will decrease lantus from 24 back to 20 units qhs and add NPH 8 units qhs to improve FBG. Monitor and reeval tomorrow. Qualifiers: Diabetes mellitus e m assembler insulin use: with e m assembler use Qualified Codes: E11.65 - Type 2 diabetes mellitus with hyperglycemia; Z79.4 - wraparound facilitator (current) use of insulin Consultation Date/Type/Reason Admit Date/Time Feb 07, 2019 at 18:24 Initial Consult Date 02/08/19 Type of Consult Endocrinology Reason for Consultation DKA Requesting Provider: ANAIS DOWNS Date/Time of Note DATE: 02/12/19 TIME: 13:32 24 HR Interval Summary Constitutional: no complaints, disoriented Exam/Review of Systems Exam Vitals VS - Last 72 Hours, by Label Date Temp Pulse Resp B/P (MAP) Pulse Ox O2 O2 Flow FiO2 Time Delivery Rate 02/12/19 98.2 80 18 122/58 99 Room Air 11:04 (79) 02/12/19 Nasal 3.0 10:58 Cannula 02/12/19 72 08:00 02/12/19 98.3 89 16 141/71 98 Room Air 07:19 (94) 02/12/19 77 04:00 02/12/19 97.4 79 20 139/76 97 03:32 (97) 02/12/19 97.6 78 20 132/76 98 00:29 (94) 02/12/19 72 00:00 02/11/19 98.4 77 20 135/74 98 23:50 (94) 02/11/19 Nasal 3.0 20:32 Cannula 02/11/19 76 20:00 02/11/19 98.1 82 20 144/80 98 Room Air 19:37 (101) 02/11/19 78 16:35 02/11/19 97.5 81 20 122/73 97 Room Air 15:10 (89) 02/11/19 79 13:35 02/11/19 98.1 85 20 133/69 98 Room Air 10:55 (90) 02/11/19 75 09:09 02/11/19 97.5 75 20 135/72 97 Room Air 07:37 (93) 02/11/19 84 04:00 02/11/19 98.1 81 18 145/67 98 03:15 (93) 02/11/19 67 00:00 02/10/19 98.1 72 18 160/79 100 23:43 (106) 02/10/19 Nasal 3.0 23:28 Cannula 02/10/19 76 20:00 02/10/19 98.2 86 18 131/66 99 19:30 (87) 02/10/19 79 16:00 02/10/19 98.1 91 18 116/59 97 15:06 (78) 02/10/19 87 12:00 02/10/19 98.2 96 18 124/60 96 11:10 (81) 02/10/19 Nasal 3.0 09:00 Cannula 02/10/19 94 08:00 02/10/19 98.3 89 18 138/67 96 07:28 (90) 02/10/19 98.2 75 18 129/71 100 04:00 (90) 02/10/19 70 04:00 02/10/19 88 00:00 02/10/19 98.4 79 18 107/53 99 00:00 (71) 02/09/19 Nasal 3.0 20:00 Cannula 02/09/19 98.3 77 18 117/58 100 20:00 (77) 02/09/19 96 20:00 02/09/19 73 16:33 02/09/19 98.2 77 18 126/66 96 15:24 (86) Vital Signs Date Temp Pulse Resp B/P (MAP) Pulse Ox O2 O2 Flow FiO2 Time Delivery Rate 02/12/19 98.2 80 18 122/58 99 Room Air 11:04 (79) 02/12/19 3.0 10:58 02/09/19 30 02:10 Intake and Output 02/11/19 02/11/19 02/12/19 1515:00 23:00 07:00 IntakeIntake Total 720 ml 240 ml OutputOutput Total 950 ml 450 ml 900 ml BalanceBalance -230 ml -210 ml -900 ml Constitutional: alert, well developed; No oriented Psych: no complaints, nl mood/affect Respiratory: clear to auscultation, normal air movement Cardiovascular: regular rate and rhythm, nl pulses; No edema, No murmurs/extra sounds, No rub Gastrointestinal: soft, nl liver, spleen, non-tender, bowel sounds; No mass, No rebound or guarding Musculoskeletal: nl extremities to inspection Extremities: normal pulses; No cyanosis, No clubbing, No edema 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: MANAGER SALT II-XII intact, nl speech, nl strength; No nl mental status Additional Comments Bedside Glucose - 72 Hours Test 02/09/19 17:08 02/09/19 20:20 02/10/19 07:41 02/10/19 11:47 Bedside 140 133 337 267 Glucose mg/dL (70-220) mg/dL (70-220) mg/dL (70-220) mg/dL (70-220) H H Test 02/10/19 17:14 02/10/19 20:07 02/11/19 07:25 02/11/19 11:32 Bedside 313 159 249 200 Glucose mg/dL (70-220) mg/dL (70-220) mg/dL (70-220) mg/dL (70-220) H H Test 02/11/19 17:07 02/11/19 17:09 02/11/19 17:38 02/11/19 20:14 Bedside 67 59 172 187 Glucose mg/dL (70-220) mg/dL (70-220) mg/dL (70-220) mg/dL (70-220) L L Test 02/12/19 01:50 02/12/19 08:35 02/12/19 12:16 Bedside 202 225 68 Glucose mg/dL (70-220) mg/dL (70-220) mg/dL (70-220) H L Results Result Diagram: 02/11/1942402/11/19424 Results 24hrs Laboratory Tests Test 02/11/19 17:07 02/11/19 17:09 02/11/19 17:38 02/11/19 20:14 Bedside Glucose 67 L 59 L 172 187 Test 02/12/19 01:50 02/12/19 08:35 02/12/19 12:16 Bedside Glucose 202 225 H 68 L Medications Medication Current Medications Pantoprazole (Protonix Tab) 40 mg DAILY@06 PO Last administered on 02/12/19at 07:14; Admin Dose 40 MG; Start 02/08/19 at 06:00 Acetaminophen (Tylenol Tab) 650 mg Q4H PRN PO MILD PAIN(1-3)OR ELEVATED TEMP; Start 02/08/19 at 02:00 Ondansetron HCl (Zofran Inj) 4 mg Q6H PRN IV NAUSEA AND/OR VOMITING; Start 02/08/19 at 02:00 Zolpidem Tartrate (Ambien) 5 mg HS PRN PO INSOMNIA; Start 02/08/19 at 02:00 Quetiapine Fumarate (Seroquel) 25 mg TID PO Last administered on 02/12/19at 12:3 1; Admin Dose 25 MG; Start 02/08/19 at 09:00 Levetiracetam (Keppra) 1,000 mg BID PO Last administered on 02/12/19at 08:36; Admin Dose 1,000 MG; Start 02/08/19 at 09:00 Diagnostic Test (Pha) (Accu-Chek) 1 ea 02 XX ; Start 02/09/19 at 02:00 Insulin Aspart (Novolog Insulin Pen) NOVOLOG *MILD* ALGORITHM WITH MEALS BEDTIME SC Last administered on 02/12/19at 08:46; Admin Dose 10 UNIT; Start 02/08/19 at 17:35 Miscellaneous Information 1 ea NOTE XX ; Start 02/08/19 at 20:00 Glucose (Glutose) 15 gm Q15M PRN PO DECREASED GLUCOSE; Start 02/08/19 at 20:00 Glucose (Glutose) 22.5 gm Q15M PRN PO DECREASED GLUCOSE; Start 02/08/19 at 20:00 Dextrose (D50w Syringe) 25 ml Q15M PRN IV DECREASED GLUCOSE Last administered on 02/09/19at 12:16; Admin Dose 25 ML; Start 02/08/19 at 20:00 Dextrose (D50w Syringe) 50 ml Q15M PRN IV DECREASED GLUCOSE; Start 02/08/19 at 20:00 Glucagon (Glucagen) 1 mg Q15M PRN IM DECREASED GLUCOSE; Start 02/08/19 at 20:00 Glucose (Glutose) 15 gm Q15M PRN BUCCAL DECREASED GLUCOSE; Start 02/08/19 at 20:00 Enoxaparin Sodium (Lovenox) 30 mg DAILY SC Last administered on 02/12/19at 08:41; Admin Dose 30 MG; Start 02/09/19 at 09:00 Senna (Senokot) 2 tab BID PO Last administered on 02/12/19at 08:36; Admin Dose 2 TAB; Start 02/10/19 at 11:30 Insulin Aspart (Novolog Insulin Pen) 8 unit AC LUNCH DINNER SC ; Start 02/12/19 at 11:30 Insulin Human NPH (Humulin N) 8 unit DAILY@2200 SC ; Start 02/12/19 at 22:00 Insulin Aspart (Novolog Insulin Pen) 10 unit AC BREAKFAST SC ; Start 02/13/19 at 07:00 Insulin Glargine (Lantus) 20 units DAILY@2000 SC ; Start 02/12/19 at 20:00 RUBIN CHACON MD Feb 12, 2019 13:35
--- NOTE | 2019-02-12 16:19 | PN ---
Date/Time of Note Date/Time of Note DATE: 02/12/19 TIME: 16:13 Assessment/Plan VTE Prophylaxis Risk score (from Ns)>0 risk: 3 SCD applied (from Nsg): Yes Pharmacological prophylaxis: LMWH Lines/Catheters IV Catheter Type (from Nrs): Saline Lock Assessment/Plan Hospital Course Patient's continues to have fluctuation in blood sugar, no fever nausea vomiting per RN, patient tolerates diet well, continues to be generally weak and bedridden. Assessment/Plan -Diabetes mellitus type 2 with hemoglobin A1c of 11 with hyperglycemia, continue Lantus and NovoLog. Dr. Sanchez is following in endocrinology consultation. -S/p DKA -Systemic inflammatory response syndrome with leukocytosis most likely secondary to DKA, resolved. -Acute kidney injury,resolved. -Epilepsy, continue Keppra -Hypertension, continue lisinopril Further recommendations based on clinical course. Plan of care discussed with Dr. Valdivia. Result Diagram: 02/11/19 0425 02/11/19 0425 Results 24hrs Laboratory Tests Test 02/11/19 17:07 02/11/19 17:09 02/11/19 17:38 02/11/19 20:14 Bedside Glucose 67 L 59 L 172 187 Test 02/12/19 01:50 02/12/19 08:35 02/12/19 12:16 Bedside Glucose 202 225 H 68 L Exam/Review of Systems Exam Vitals Vital Signs Date Temp Pulse Resp B/P (MAP) Pulse Ox O2 O2 Flow FiO2 Time Delivery Rate 02/12/19 98.2 88 18 122/78 99 Room Air 15:09 (93) 02/12/19 3.0 10:58 02/09/19 30 02:10 Intake and Output 02/11/19 02/11/19 02/12/19 1515:00 23:00 07:00 IntakeIntake Total 720 ml 240 ml OutputOutput Total 950 ml 450 ml 900 ml BalanceBalance -230 ml -210 ml -900 ml Exam Constitutional: alert, oriented Respiratory: clear to auscultation Cardiovascular: regular rate and rhythm Gastrointestinal: soft, non-tender Musculoskeletal: nl extremities to inspection Extremities: normal pulses 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: nl mental status Skin: nl turgor Results Results 24hrs Laboratory Tests Test 02/11/19 17:07 02/11/19 17:09 02/11/19 17:38 02/11/19 20:14 Bedside Glucose 67 L 59 L 172 187 Test 02/12/19 01:50 02/12/19 08:35 02/12/19 12:16 Bedside Glucose 202 225 H 68 L Medications Medication Current Medications Pantoprazole (Protonix Tab) 40 mg DAILY@06 PO Last administered on 02/12/19at 07:14; Admin Dose 40 MG; Start 02/08/19 at 06:00 Acetaminophen (Tylenol Tab) 650 mg Q4H PRN PO MILD PAIN(1-3)OR ELEVATED TEMP; Start 02/08/19 at 02:00 Ondansetron HCl (Zofran Inj) 4 mg Q6H PRN IV NAUSEA AND/OR VOMITING; Start 02/08/19 at 02:00 Zolpidem Tartrate (Ambien) 5 mg HS PRN PO INSOMNIA; Start 02/08/19 at 02:00 Quetiapine Fumarate (Seroquel) 25 mg TID PO Last administered on 02/12/19at 12:31; Admin Dose 25 MG; Start 02/08/19 at 09:00 Levetiracetam (Keppra) 1,000 mg BID PO Last administered on 02/12/19at 08:36; Admin Dose 1,000 MG; Start 02/08/19 at 09:00 Diagnostic Test (Pha) (Accu-Chek) 1 ea 02 XX ; Start 02/09/19 at 02:00 Insulin Aspart (Novolog Insulin Pen) NOVOLOG *MILD* ALGORITHM WITH MEALS BEDTIME SC Last administered on 02/12/19at 08:46; Admin Dose 10 UNIT; Start 02/08/19 at 17:35 Miscellaneous Information 1 ea NOTE XX ; Start 02/08/19 at 20:00 Glucose (Glutose) 15 gm Q15M PRN PO DECREASED GLUCOSE; Start 02/08/19 at 20:00 Glucose (Glutose) 22.5 gm Q15M PRN PO DECREASED GLUCOSE; Start 02/08/19 at 20:00 Dextrose (D50w Syringe) 25 ml Q15M PRN IV DECREASED GLUCOSE Last administered on 02/09/19at 12:16; Admin Dose 25 ML; Start 02/08/19 at 20:00 Dextrose (D50w Syringe) 50 ml Q15M PRN IV DECREASED GLUCOSE; Start 02/08/19 at 20:00 Glucagon (Glucagen) 1 mg Q15M PRN IM DECREASED GLUCOSE; Start 02/08/19 at 20:00 Glucose (Glutose) 15 gm Q15M PRN BUCCAL DECREASED GLUCOSE; Start 02/08/19 at 20:00 Enoxaparin Sodium (Lovenox) 30 mg DAILY SC Last administered on 02/12/19at 08:41; Admin Dose 30 MG; Start 02/09/19 at 09:00 Senna (Senokot) 2 tab BID PO Last administered on 02/12/19at 08:36; Admin Dose 2 TAB; Start 02/10/19 at 11:30 Insulin Aspart (Novolog Insulin Pen) 8 unit AC LUNCH DINNER SC ; Start 02/12/19 at 11:30 Insulin Human NPH (Humulin N) 8 unit DAILY@2200 SC ; Start 02/12/19 at 22:00 Insulin Aspart (Novolog Insulin Pen) 10 unit AC BREAKFAST SC ; Start 02/13/19 at 07:00 Insulin Glargine (Lantus) 20 units DAILY@2000 SC ; Start 02/12/19 at 20:00 ANAIS DOWNS Feb 12, 2019 16:19
[2019-02-12] MEDS: INSULIN GLARGINE [LANTus] (100 UNITS/ML) SYG SC SCH (20:50)
[2019-02-12] MEDS ORDERED: NPH, HUMAN INSULIN ISOPHANE 3ML VIAL SC SCH (22:00)
[2019-02-13] VITALS (9 sets, daily range): BP systolic 112–155; BP diastolic 63–86; PULSE 68–100; RESP 17–18
[2019-02-13] MEDS: ACCU-CHEK XX SCH (02:33)
[2019-02-13] MEDS: PANTOPRAZOLE (EC) 40 MG TAB PO SCH (05:37)
[2019-02-13] MEDS ORDERED: INSULIN ASPART [NOVOLOG] 3 ML PEN SC SCH ×2 (07:00)
[2019-02-13] MEDS: INSULIN ASPART [NOVOLOG] 3 ML PEN SC SCH ×6 (07:59→21:00)
[2019-02-13] MEDS: QUETIAPINE 25 MG TAB PO SCH ×3 (08:28→21:08)
[2019-02-13] MEDS: SENNA TAB PO SCH ×2 (08:28→21:08)
[2019-02-13] MEDS: LEVETIRACETAM 500 MG TAB PO SCH ×2 (08:28→21:08)
[2019-02-13] MEDS: ENOXAPARIN 30 MG/0.3 ML SYG SC SCH (08:34)
--- NOTE | 2019-02-13 15:30 | PN ---
Date/Time of Note Date/Time of Note DATE: 02/13/19 TIME: 15:28 Assessment/Plan VTE Prophylaxis Risk score (from Ns)>0 risk: 3 SCD applied (from Nsg): Yes Pharmacological prophylaxis: LMWH Lines/Catheters IV Catheter Type (from Nrsg): Saline Lock Urinary Cath still in place: No Assessment/Plan Hospital Course Patient with hypoglycemia early in the morning, continue Lantus and NovoLog per endocrinology recommendations, patient eats most of the meals according to RN, continue to monitor, will obtain PT eval. Assessment/Plan -Diabetes mellitus type 2 with hemoglobin A1c of 11 with hyperglycemia, continue Lantus and NovoLog. Dr. Sanchez is following in endocrinology consultation. -S/p DKA -Systemic inflammatory response syndrome with leukocytosis most likely secondary to DKA, resolved. -Acute kidney injury,resolved. -Epilepsy, continue Keppra -Hypertension, continue lisinopril Further recommendations based on clinical course. Plan of care discussed with Dr. Valdivia. Result Diagram: 02/11/19 0425 02/13/19 0510 Results 24hrs Laboratory Tests Test 02/12/19 17:21 02/12/19 20:08 02/12/19 21:25 02/13/19 02:20 Bedside Glucose 168 211 273 H 67 L Test 02/13/19 02:42 02/13/19 05:10 02/13/19 07:46 02/13/19 07:58 Bedside Glucose 113 60 L 64 L Sodium Level 139 Potassium Level 4.0 Chloride Level 100 Carbon Dioxide Level 28 Anion Gap 11 Blood Urea Nitrogen 13 Creatinine 0.56 L Est Glomerular Filtrat Rate mL/min Glucose Level 120 Calcium Level 8.4 Test 02/13/19 08:23 02/13/19 08:27 02/13/19 11:43 02/13/19 12:17 Bedside Glucose 125 142 69 L 114 Test 02/13/19 12:58 Bedside Glucose 166 Exam/Review of Systems Exam Vitals Vital Signs Date Temp Pulse Resp B/P (MAP) Pulse Ox O2 O2 Flow FiO2 Time Delivery Rate 02/13/19 98.7 87 17 155/86 99 15:14 (109) 02/13/19 Room Air 04:00 02/12/19 3.0 10:58 Intake and Output 02/12/19 02/12/19 02/13/19 1515:00 23:00 07:00 IntakeIntake Total 660 ml 490 ml 500 ml OutputOutput Total 350 ml 450 ml 700 ml BalanceBalance 310 ml 40 ml -200 ml Exam Constitutional: alert, oriented Respiratory: clear to auscultation Cardiovascular: regular rate and rhythm Gastrointestinal: soft, non-tender Musculoskeletal: nl extremities to inspection Extremities: normal pulses 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: nl mental status Skin: nl turgor Results Results 24hrs Laboratory Tests Test 02/12/19 17:21 02/12/19 20:08 02/12/19 21:25 02/13/19 02:20 Bedside Glucose 168 211 273 H 67 L Test 02/13/19 02:42 02/13/19 05:10 02/13/19 07:46 02/13/19 07:58 Bedside Glucose 113 60 L 64 L Sodium Level 139 Potassium Level 4.0 Chloride Level 100 Carbon Dioxide Level 28 Anion Gap 11 Blood Urea Nitrogen 13 Creatinine 0.56 L Est Glomerular Filtrat Rate mL/min Glucose Level 120 Calcium Level 8.4 Test 02/13/19 08:23 02/13/19 08:27 02/13/19 11:43 02/13/19 12:17 Bedside Glucose 125 142 69 L 114 Test 02/13/19 12:58 Bedside Glucose 166 Medications Medication Current Medications Pantoprazole (Protonix Tab) 40 mg DAILY@06 PO Last administered on 02/13/19at 05:37; Admin Dose 40 MG; Start 02/08/19 at 06:00 Acetaminophen (Tylenol Tab) 650 mg Q4H PRN PO MILD PAIN(1-3)OR ELEVATED TEMP; Start 02/08/19 at 02:00 Ondansetron HCl (Zofran Inj) 4 mg Q6H PRN IV NAUSEA AND/OR VOMITING; Start 02/08/19 at 02:00 Zolpidem Tartrate (Ambien) 5 mg HS PRN PO INSOMNIA; Start 02/08/19 at 02:00 Quetiapine Fumarate (Seroquel) 25 mg TID PO Last administered on 02/13/19at 12:19; Admin Dose 25 MG; Start 02/08/19 at 09:00 Levetiracetam (Keppra) 1,000 mg BID PO Last administered on 02/13/19at 08:28; Admin Dose 1,000 MG; Start 02/08/19 at 09:00 Diagnostic Test (Pha) (Accu-Chek) 1 ea 02 XX Last administered on 02/13/19at 02:33; Admin Dose 1 EA; Start 02/09/19 at 02:00 Insulin Aspart (Novolog Insulin Pen) NOVOLOG *MILD* ALGORITHM WITH MEALS BEDTIME SC Last administered on 02/12/19at 20:50; Admin Dose 1 UNIT; Start 02/08/19 at 17:35 Miscellaneous Information 1 ea NOTE XX ; Start 02/08/19 at 20:00 Glucose (Glutose) 15 gm Q15M PRN PO DECREASED GLUCOSE; Start 02/08/19 at 20:00 Glucose (Glutose) 22.5 gm Q15M PRN PO DECREASED GLUCOSE; Start 02/08/19 at 20:00 Dextrose (D50w Syringe) 25 ml Q15M PRN IV DECREASED GLUCOSE Last administered on 02/09/19at 12:16; Admin Dose 25 ML; Start 02/08/19 at 20:00 Dextrose (D50w Syringe) 50 ml Q15M PRN IV DECREASED GLUCOSE; Start 02/08/19 at 20:00 Glucagon (Glucagen) 1 mg Q15M PRN IM DECREASED GLUCOSE; Start 02/08/19 at 20:00 Glucose (Glutose) 15 gm Q15M PRN BUCCAL DECREASED GLUCOSE; Start 02/08/19 at 20:00 Enoxaparin Sodium (Lovenox) 30 mg DAILY SC Last administered on 02/13/19at 08:34; Admin Dose 30 MG; Start 02/09/19 at 09:00 Senna (Senokot) 2 tab BID PO Last administered on 02/13/19at 08:28; Admin Dose 2 TAB; Start 02/10/19 at 11:30 Insulin Aspart (Novolog Insulin Pen) 8 unit AC LUNCH DINNER SC Last administered on 02/13/19 12:23; Admin Dose 6 UNIT; Start 02/12/19 at 11:30 Insulin Aspart (Novolog Insulin Pen) 10 unit AC BREAKFAST SC Last administered on 02/13/19 08:34; Admin Dose 10 UNIT; Start 02/13/19 at 07:00 Insulin Glargine (Lantus) 20 units DAILY@2000 SC Last administered on 02/12/19at 20:50; Admin Dose 20 UNITS; Start 02/12/19 at 20:00 Insulin Human NPH (Humulin N) 5 unit DAILY@2200 SC ; Start 02/13/19 at 22:00 ANAIS DOWNS Feb 13, 2019 15:30
--- NOTE | 2019-02-13 17:48 | CONS ---
Assessment/Plan Assessment/Plan Problems: (1) Type 2 diabetes mellitus with hyperglycemia Status: Chronic Comment: BG remains erratic. Hypoglycemic this am so NPH reduced tonight from 8 to 5 units qhs. Hypoglycemic again pre-lunch so will decrease Novolog from 10 to 8 units for breakfast. This would make Novolog 8 units qac. Erratic nature of BG again evokes likelihood of T1DM. C-peptide P. Qualifiers: Diabetes mellitus shelter insulin use: with shelter use Qualified Codes: E11.65 - Type 2 diabetes mellitus with hyperglycemia; Z79.4 - [facility] (current) use of insulin Consultation Date/Type/Reason Admit Date/Time Feb 07, 2019 at 18:24 Initial Consult Date 02/08/19 Type of Consult Endocrinology Reason for Consultation DKA Requesting Provider: ANAIS DOWNS Date/Time of Note DATE: 02/13/19 TIME: 17:45 24 HR Interval Summary Constitutional: no complaints, disoriented Exam/Review of Systems Exam Vitals VS - Last 72 Hours, by Label Date Temp Pulse Resp B/P (MAP) Pulse Ox O2 O2 Flow FiO2 Time Delivery Rate 02/13/19 87 17:14 02/13/19 98.7 87 17 155/86 99 15:14 (109) 02/13/19 100 12:16 02/13/19 96.7 96 17 112/63 100 11:36 (79) 02/13/19 75 08:31 02/13/19 98.5 75 18 136/84 97 07:23 (101) 02/13/19 97.8 68 18 135/75 98 Room Air 04:00 (95) 02/13/19 75 04:00 02/13/19 68 00:00 02/13/19 98.0 80 18 115/81 98 Room Air 00:00 (92) 02/12/19 98.0 76 18 165/86 98 20:16 (112) 02/12/19 70 20:00 02/12/19 77 16:00 02/12/19 98.2 88 18 122/78 99 Room Air 15:09 (93) 02/12/19 82 12:00 02/12/19 98.2 80 18 122/58 99 Room Air 11:04 (79) 02/12/19 Nasal 3.0 10:58 Cannula 02/12/19 72 08:00 02/12/19 98.3 89 16 141/71 98 Room Air 07:19 (94) 02/12/19 77 04:00 02/12/19 97.4 79 20 139/76 97 03:32 (97) 02/12/19 97.6 78 20 132/76 98 00:29 (94) 02/12/19 72 00:00 02/11/19 98.4 77 20 135/74 98 23:50 (94) 02/11/19 Nasal 3.0 20:32 Cannula 02/11/19 76 20:00 02/11/19 98.1 82 20 144/80 98 Room Air 19:37 (101) 02/11/19 78 16:35 02/11/19 97.5 81 20 122/73 97 Room Air 15:10 (89) 02/11/19 79 13:35 02/11/19 98.1 85 20 133/69 98 Room Air 10:55 (90) 02/11/19 75 09:09 02/11/19 97.5 75 20 135/72 97 Room Air 07:37 (93) 02/11/19 84 04:00 02/11/19 98.1 81 18 145/67 98 03:15 (93) 02/11/19 67 00:00 02/10/19 98.1 72 18 160/79 100 23:43 (106) 02/10/19 Nasal 3.0 23:28 Cannula 02/10/19 76 20:00 02/10/19 98.2 86 18 131/66 99 19:30 (87) Vital Signs Date Temp Pulse Resp B/P (MAP) Pulse Ox O2 O2 Flow FiO2 Time Delivery Rate 02/13/19 87 17:14 02/13/19 98.7 17 155/86 99 15:14 (109) 02/13/19 Room Air 04:00 02/12/19 3.0 10:58 Intake and Output 02/12/19 02/12/19 02/13/19 1414:59 22:59 06:59 IntakeIntake Total 660 ml 490 ml 500 ml OutputOutput Total 350 ml 450 ml 700 ml BalanceBalance 310 ml 40 ml -200 ml Constitutional: alert, well developed; No oriented Psych: confusion Respiratory: clear to auscultation, normal air movement Cardiovascular: regular rate and rhythm, nl pulses; No edema, No murmurs/extra sounds, No rub Gastrointestinal: soft, nl liver, spleen, non-tender, bowel sounds; No mass, No rebound or guarding Musculoskeletal: nl extremities to inspection Extremities: normal pulses; No cyanosis, No clubbing, No edema 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, nl mental status, nl speech, nl strength Additional Comments Bedside Glucose - 72 Hours Test 02/10/19 20:07 02/11/19 07:25 02/11/19 11:32 02/11/19 17:07 Bedside 159 249 200 67 Glucose mg/dL (70-220) mg/dL (70-220) mg/dL (70-220) mg/dL (70-220) H L Test 02/11/19 17:09 02/11/19 17:38 02/11/19 20:14 02/12/19 01:50 Bedside 59 172 187 202 Glucose mg/dL (70-220) mg/dL (70-220) mg/dL (70-220) mg/dL (70-220) L Test 02/12/19 08:35 02/12/19 12:16 02/12/19 17:21 02/12/19 20:08 Bedside 225 68 168 211 Glucose mg/dL (70-220) mg/dL (70-220) mg/dL (70-220) mg/dL (70-220) H L Test 02/12/19 21:25 02/13/19 02:20 02/13/19 02:42 02/13/19 07:46 Bedside 273 67 113 60 Glucose mg/dL (70-220) mg/dL (70-220) mg/dL (70-220) mg/dL (70-220) H L L Test 02/13/19 07:58 02/13/19 08:23 02/13/19 08:27 02/13/19 11:43 Bedside 64 125 142 69 Glucose mg/dL (70-220) mg/dL (70-220) mg/dL (70-220) mg/dL (70-220) L L Test 02/13/19 12:17 02/13/19 12:58 02/13/19 17:12 Bedside 114 166 97 Glucose mg/dL (70-220) mg/dL (70-220) mg/dL (70-220) Results Result Diagram: 02/11/19 0425 02/13/19 0510 Results 24hrs Laboratory Tests Test 02/12/19 20:08 02/12/19 21:25 02/13/19 02:20 02/13/19 02:42 Bedside Glucose 211 273 H 67 L 113 Test 02/13/19 05:10 02/13/19 07:46 02/13/19 07:58 02/13/19 08:23 Sodium Level 139 Potassium Level 4.0 Chloride Level 100 Carbon Dioxide Level 28 Anion Gap 11 Blood Urea Nitrogen 13 Creatinine 0.56 L Est Glomerular Filtrat Rate mL/min Glucose Level 120 Calcium Level 8.4 Bedside Glucose 60 L 64 L 125 Test 02/13/19 08:27 02/13/19 11:43 02/13/19 12:17 02/13/19 12:58 Bedside Glucose 142 69 L 114 166 Test 02/13/19 17:12 Bedside Glucose 97 Medications Medication Current Medications Pantoprazole (Protonix Tab) 40 mg DAILY@06 PO Last administered on 02/13/19at 05:37; Admin Dose 40 MG; Start 02/08/19 at 06:00 Acetaminophen (Tylenol Tab) 650 mg Q4H PRN PO MILD PAIN(1-3)OR ELEVATED TEMP; Start 02/08/19 at 02:00 Ondansetron HCl (Zofran Inj) 4 mg Q6H PRN IV NAUSEA AND/OR VOMITING; Start 02/08/19 at 02:00 Zolpidem Tartrate (Ambien) 5 mg HS PRN PO INSOMNIA; Start 02/08/19 at 02:00 Quetiapine Fumarate (Seroquel) 25 mg TID PO Last administered on 02/13/19at 12:19; Admin Dose 25 MG; Start 02/08/19 at 09:00 Levetiracetam (Keppra) 1,000 mg BID PO Last administered on 02/13/19at 08:28; Admin Dose 1,000 MG; Start 02/08/19 at 09:00 Diagnostic Test (Pha) (Accu-Chek) 1 ea 02 XX Last administered on 02/13/19at 02:33; Admin Dose 1 EA; Start 02/09/19 at 02:00 Insulin Aspart (Novolog Insulin Pen) NOVOLOG *MILD* ALGORITHM WITH MEALS BEDTIME SC Last administered on 02/12/19at 20:50; Admin Dose 1 UNIT; Start 02/08/19 at 17:35 Miscellaneous Information 1 ea NOTE XX ; Start 02/08/19 at 20:00 Glucose (Glutose) 15 gm Q15M PRN PO DECREASED GLUCOSE; Start 02/08/19 at 20:00 Glucose (Glutose) 22.5 gm Q15M PRN PO DECREASED GLUCOSE; Start 02/08/19 at 20:00 Dextrose (D50w Syringe) 25 ml Q15M PRN IV DECREASED GLUCOSE Last administered on 02/09/19at 12:16; Admin Dose 25 ML; Start 02/08/19 at 20:00 Dextrose (D50w Syringe) 50 ml Q15M PRN IV DECREASED GLUCOSE; Start 02/08/19 at 20:00 Glucagon (Glucagen) 1 mg Q15M PRN IM DECREASED GLUCOSE; Start 02/08/19 at 20:00 Glucose (Glutose) 15 gm Q15M PRN BUCCAL DECREASED GLUCOSE; Start 02/08/19 at 20:00 Enoxaparin Sodium (Lovenox) 30 mg DAILY SC Last administered on 02/13/19at 08:34; Admin Dose 30 MG; Start 02/09/19 at 09:00 Senna (Senokot) 2 tab BID PO Last administered on 02/13/19at 08:28; Admin Dose 2 TAB; Start 02/10/19 at 11:30 Insulin Glargine (Lantus) 20 units DAILY@2000 SC Last administered on 02/12/19at 20:50; Admin Dose 20 UNITS; Start 02/12/19 at 20:00 Insulin Human NPH (Humulin N) 5 unit DAILY@2200 SC ; Start 02/13/19 at 22:00 Insulin Aspart (Novolog Insulin Pen) 8 unit AC MEALS SC ; Start 02/14/19 at 07:00 RUBIN CHACON MD Feb 13, 2019 17:48
[2019-02-13] MEDS: INSULIN GLARGINE [LANTus] (100 UNITS/ML) SYG SC SCH (21:22)
[2019-02-13] MEDS ORDERED: NPH, HUMAN INSULIN ISOPHANE 3ML VIAL SC SCH (22:00)
[2019-02-14] VITALS (8 sets, daily range): BP systolic 116–133; BP diastolic 57–85; PULSE 72–83; RESP 16–18
[2019-02-14] MEDS: ACCU-CHEK XX SCH (02:06)
[2019-02-14] MEDS: PANTOPRAZOLE (EC) 40 MG TAB PO SCH (06:16)
[2019-02-14] MEDS: INSULIN ASPART [NOVOLOG] 3 ML PEN SC SCH ×7 (07:48→21:00)
[2019-02-14] MEDS: QUETIAPINE 25 MG TAB PO SCH ×3 (07:57→21:22)
[2019-02-14] MEDS: SENNA TAB PO SCH ×2 (07:58→21:21)
[2019-02-14] MEDS: LEVETIRACETAM 500 MG TAB PO SCH ×2 (07:58→21:21)
[2019-02-14] MEDS: ENOXAPARIN 30 MG/0.3 ML SYG SC SCH (08:04)
--- NOTE | 2019-02-14 17:14 | CONS ---
Assessment/Plan Assessment/Plan Problems: (1) Type 1 diabetes mellitus with hyperglycemia Status: Chronic Comment: New diagnosis. Chart must be corrected. Pt. DOES NOT have T2DM. C- peptide is UNDETECTABLE. This is T1DM. This explains the erratic nature of this patient's blood glucose control. I am going to increase his hs NPH up to 6 units to try to correct the fasting hyperglycemia. I am also going to change his correction to a custom 1 unit:50 mg/dL because it appears that when he gets 1 unit:40 mg/dL, he develops hypo- or near hypoglycemia. Consultation Date/Type/Reason Admit Date/Time Feb 07, 2019 at 18:24 Initial Consult Date 02/08/19 Type of Consult Endocrinology Reason for Consultation DKA Requesting Provider: ANAIS DOWNS Date/Time of Note DATE: 02/14/19 TIME: 17:10 24 HR Interval Summary Subjective hx not possible: pt non-verbal (sleeping) Exam/Review of Systems Exam Vitals VS - Last 72 Hours, by Label Date Temp Pulse Resp B/P (MAP) Pulse Ox O2 O2 Flow FiO2 Time Delivery Rate 02/14/19 96.6 72 17 116/62 96 15:14 (80) 02/14/19 77 12:36 02/14/19 98.1 79 16 121/57 97 11:17 (78) 02/14/19 83 08:52 02/14/19 98.4 79 18 126/60 97 07:31 (82) 02/14/19 80 04:00 02/14/19 98.0 83 17 133/85 98 Room Air 00:00 (101) 02/14/19 73 00:00 02/13/19 97.9 91 17 149/84 99 Room Air 20:00 (105) 02/13/19 88 20:00 02/13/19 87 17:14 02/13/19 98.7 87 17 155/86 99 15:14 (109) 02/13/19 100 12:16 02/13/19 96.7 96 17 112/63 100 11:36 (79) 02/13/19 75 08:31 02/13/19 98.5 75 18 136/84 97 07:23 (101) 02/13/19 97.8 68 18 135/75 98 Room Air 04:00 (95) 02/13/19 75 04:00 02/13/19 68 00:00 02/13/19 98.0 80 18 115/81 98 Room Air 00:00 (92) 02/12/19 98.0 76 18 165/86 98 20:16 (112) 02/12/19 70 20:00 02/12/19 77 16:00 02/12/19 98.2 88 18 122/78 99 Room Air 15:09 (93) 02/12/19 82 12:00 02/12/19 98.2 80 18 122/58 99 Room Air 11:04 (79) 02/12/19 Nasal 3.0 10:58 Cannula 02/12/19 72 08:00 02/12/19 98.3 89 16 141/71 98 Room Air 07:19 (94) 02/12/19 77 04:00 02/12/19 97.4 79 20 139/76 97 03:32 (97) 02/12/19 97.6 78 20 132/76 98 00:29 (94) 02/12/19 72 00:00 02/11/19 98.4 77 20 135/74 98 23:50 (94) 02/11/19 Nasal 3.0 20:32 Cannula 02/11/19 76 20:00 02/11/19 98.1 82 20 144/80 98 Room Air 19:37 (101) Vital Signs Date Temp Pulse Resp B/P (MAP) Pulse Ox O2 O2 Flow FiO2 Time Delivery Rate 02/14/19 96.6 72 17 116/62 96 15:14 (80) 02/14/19 Room Air 00:00 02/12/19 3.0 10:58 Intake and Output 02/13/19 02/13/19 02/14/19 1515:00 23:00 07:00 IntakeIntake Total 300 ml 233 ml 650 ml OutputOutput Total 200 ml 350 ml 450 ml BalanceBalance 100 ml -117 ml 200 ml Constitutional: well developed; No alert (sleeping) Respiratory: clear to auscultation, normal air movement Cardiovascular: regular rate and rhythm, nl pulses; No edema, No murmurs/extra sounds, No rub Gastrointestinal: soft, nl liver, spleen, non-tender, bowel sounds; No mass, No rebound or guarding Musculoskeletal: nl extremities to inspection Extremities: normal pulses; No cyanosis, No clubbing, No edema 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: other (sleeping) Additional Comments Bedside Glucose - 72 Hours Test 02/11/19 17:38 02/11/19 20:14 02/12/19 01:50 02/12/19 08:35 Bedside 172 187 202 225 Glucose mg/dL (70-220) mg/dL (70-220) mg/dL (70-220) mg/dL (70-220) H Test 02/12/19 12:16 02/12/19 17:21 02/12/19 20:08 02/12/19 21:25 Bedside 68 168 211 273 Glucose mg/dL (70-220) mg/dL (70-220) mg/dL (70-220) mg/dL (70-220) L H Test 02/13/19 02:20 02/13/19 02:42 02/13/19 07:46 02/13/19 07:58 Bedside 67 113 60 64 Glucose mg/dL (70-220) mg/dL (70-220) mg/dL (70-220) mg/dL (70-220) L L L Test 02/13/19 08:23 02/13/19 08:27 02/13/19 11:43 02/13/19 12:17 Bedside 125 142 69 114 Glucose mg/dL (70-220) mg/dL (70-220) mg/dL (70-220) mg/dL (70-220) L Test 02/13/19 12:58 02/13/19 17:12 02/13/19 21:04 02/14/19 01:40 Bedside 166 97 148 83 Glucose mg/dL (70-220) mg/dL (70-220) mg/dL (70-220) mg/dL (70-220) Test 02/14/19 07:42 02/14/19 12:00 Bedside 245 71 Glucose mg/dL (70-220) mg/dL (70-220) H Results Result Diagram: 02/11/19 0425 02/14/19 0540 Results 24hrs Laboratory Tests Test 02/13/19 17:12 02/13/19 21:04 02/14/19 01:40 02/14/19 05:40 Bedside Glucose 97 148 83 Sodium Level 138 Potassium Level 4.9 Chloride Level 103 Carbon Dioxide Level 27 Anion Gap 8 Blood Urea Nitrogen 17 Creatinine 0.62 Est Glomerular Filtrat Rate mL/min Glucose Level 245 #H Calcium Level 9.4 Magnesium Level 1.7 Test 02/14/19 07:42 02/14/19 12:00 Bedside Glucose 245 H 71 Medications Medication Current Medications Pantoprazole (Protonix Tab) 40 mg DAILY@06 PO Last administered on 02/14/19at 06:16; Admin Dose 40 MG; Start 02/08/19 at 06:00 Acetaminophen (Tylenol Tab) 650 mg Q4H PRN PO MILD PAIN(1-3)OR ELEVATED TEMP; Start 02/08/19 at 02:00 Ondansetron HCl (Zofran Inj) 4 mg Q6H PRN IV NAUSEA AND/OR VOMITING; Start 02/08/19 at 02:00 Zolpidem Tartrate (Ambien) 5 mg HS PRN PO INSOMNIA; Start 02/08/19 at 02:00 Quetiapine Fumarate (Seroquel) 25 mg TID PO Last administered on 02/14/19at 12:01; Admin Dose 25 MG; Start 02/08/19 at 09:00 Levetiracetam (Keppra) 1,000 mg BID PO Last administered on 02/14/19at 07:58; Admin Dose 1,000 MG; Start 02/08/19 at 09:00 Diagnostic Test (Pha) (Accu-Chek) 1 ea 02 XX Last administered on 02/14/19at 02:06; Admin Dose 1 EA; Start 02/09/19 at 02:00 Insulin Aspart (Novolog Insulin Pen) NOVOLOG *MILD* ALGORITHM WITH MEALS BEDTIME SC Last administered on 02/14/19at 07:48; Admin Dose 3 UNIT; Start 02/08/19 at 17:35 Miscellaneous Information 1 ea NOTE XX ; Start 02/08/19 at 20:00 Glucose (Glutose) 15 gm Q15M PRN PO DECREASED GLUCOSE; Start 02/08/19 at 20:00 Glucose (Glutose) 22.5 gm Q15M PRN PO DECREASED GLUCOSE; Start 02/08/19 at 20:00 Dextrose (D50w Syringe) 25 ml Q15M PRN IV DECREASED GLUCOSE Last administered on 02/09/19at 12:16; Admin Dose 25 ML; Start 02/08/19 at 20:00 Dextrose (D50w Syringe) 50 ml Q15M PRN IV DECREASED GLUCOSE; Start 02/08/19 at 20:00 Glucagon (Glucagen) 1 mg Q15M PRN IM DECREASED GLUCOSE; Start 02/08/19 at 20:00 Glucose (Glutose) 15 gm Q15M PRN BUCCAL DECREASED GLUCOSE; Start 02/08/19 at 20:00 Enoxaparin Sodium (Lovenox) 30 mg DAILY SC Last administered on 02/14/19at 08:04; Admin Dose 30 MG; Start 02/09/19 at 09:00 Senna (Senokot) 2 tab BID PO Last administered on 02/14/19at 07:58; Admin Dose 2 TAB; Start 02/10/19 at 11:30 Insulin Glargine (Lantus) 20 units DAILY@2000 SC Last administered on 02/13/19at 21:22; Admin Dose 20 UNITS; Start 02/12/19 at 20:00 Insulin Human NPH (Humulin N) 5 unit DAILY@2200 SC Last administered on 02/13/19 21:22; Admin Dose 5 UNIT; Start 02/13/19 at 22:00 Insulin Aspart (Novolog Insulin Pen) 8 unit AC MEALS SC Last administered on 02/14/19at 12:08; Admin Dose 8 UNIT; Start 02/14/19 at 07:00 RUBIN CHACON MD Feb 14, 2019 17:14
--- NOTE | 2019-02-14 18:28 | PN ---
Date/Time of Note Date/Time of Note DATE: 02/14/19 TIME: 18:28 Assessment/Plan VTE Prophylaxis Risk score (from Ns)>0 risk: 3 SCD applied (from Ns): No SCD contraindicated: patient refusal Pharmacological prophylaxis: LMWH Lines/Catheters IV Catheter Type (from Nrs): Saline Lock Urinary Cath still in place: No Assessment/Plan Hospital Course Pt is resting, eats most of all meals per RN, denies any pain, continues to have high fluctuation in blood sugar. Assessment/Plan -T1 DM, continue management per endo recs.Pt is currently on Lantus, NPH and premeal Novolog. Dr. Sanchez is following in endocrinology consultation. -S/p DKA -Systemic inflammatory response syndrome with leukocytosis most likely secondary to DKA, resolved. -Acute kidney injury,resolved. -Epilepsy, continue Keppra -Hypertension, continue lisinopril Further recommendations based on clinical course. Plan of care discussed with Dr. Valdivia. Result Diagram: 02/11/19 0425 02/14/19 0540 Results 24hrs Laboratory Tests Test 02/13/19 21:04 02/14/19 01:40 02/14/19 05:40 02/14/19 07:42 Bedside Glucose 148 83 245 H Sodium Level 138 Potassium Level 4.9 Chloride Level 103 Carbon Dioxide Level 27 Anion Gap 8 Blood Urea Nitrogen 17 Creatinine 0.62 Est Glomerular Filtrat Rate mL/min Glucose Level 245 #H Calcium Level 9.4 Magnesium Level 1.7 Test 02/14/19 12:00 02/14/19 17:16 02/14/19 17:38 Bedside Glucose 71 66 L 104 Exam/Review of Systems Exam Vitals Vital Signs Date Temp Pulse Resp B/P (MAP) Pulse Ox O2 O2 Flow FiO2 Time Delivery Rate 02/14/19 96.6 72 17 116/62 96 15:14 (80) 02/14/19 Room Air 00:00 02/12/19 3.0 10:58 Intake and Output 02/13/19 02/13/19 02/14/19 1515:00 23:00 07:00 IntakeIntake Total 300 ml 233 ml 650 ml OutputOutput Total 200 ml 350 ml 450 ml BalanceBalance 100 ml -117 ml 200 ml Exam Constitutional: alert, oriented Respiratory: clear to auscultation Cardiovascular: regular rate and rhythm Gastrointestinal: soft, non-tender Musculoskeletal: nl extremities to inspection Extremities: normal pulses 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: nl mental status Skin: nl turgor Results Results 24hrs Laboratory Tests Test 02/13/19 21:04 02/14/19 01:40 02/14/19 05:40 02/14/19 07:42 Bedside Glucose 148 83 245 H Sodium Level 138 Potassium Level 4.9 Chloride Level 103 Carbon Dioxide Level 27 Anion Gap 8 Blood Urea Nitrogen 17 Creatinine 0.62 Est Glomerular Filtrat Rate mL/min Glucose Level 245 #H Calcium Level 9.4 Magnesium Level 1.7 Test 02/14/19 12:00 02/14/19 17:16 02/14/19 17:38 Bedside Glucose 71 66 L 104 Medications Medication Current Medications Pantoprazole (Protonix Tab) 40 mg DAILY@06 PO Last administered on 02/14/19at 06:16; Admin Dose 40 MG; Start 02/08/19 at 06:00 Acetaminophen (Tylenol Tab) 650 mg Q4H PRN PO MILD PAIN(1-3)OR ELEVATED TEMP; Start 02/08/19 at 02:00 Ondansetron HCl (Zofran Inj) 4 mg Q6H PRN IV NAUSEA AND/OR VOMITING; Start 02/08/19 at 02:00 Zolpidem Tartrate (Ambien) 5 mg HS PRN PO INSOMNIA; Start 02/08/19 at 02:00 Quetiapine Fumarate (Seroquel) 25 mg TID PO Last administered on 02/14/19at 12:01; Admin Dose 25 MG; Start 02/08/19 at 09:00 Levetiracetam (Keppra) 1,000 mg BID PO Last administered on 02/14/19at 07:58; Admin Dose 1,000 MG; Start 02/08/19 at 09:00 Diagnostic Test (Pha) (Accu-Chek) 1 ea 02 XX Last administered on 02/14/19at 02:06; Admin Dose 1 EA; Start 02/09/19 at 02:00 Miscellaneous Information 1 ea NOTE XX ; Start 02/08/19 at 20:00 Glucose (Glutose) 15 gm Q15M PRN PO DECREASED GLUCOSE; Start 02/08/19 at 20:00 Glucose (Glutose) 22.5 gm Q15M PRN PO DECREASED GLUCOSE; Start 02/08/19 at 20:00 Dextrose (D50w Syringe) 25 ml Q15M PRN IV DECREASED GLUCOSE Last administered on 02/09/19at 12:16; Admin Dose 25 ML; Start 02/08/19 at 20:00 Dextrose (D50w Syringe) 50 ml Q15M PRN IV DECREASED GLUCOSE; Start 02/08/19 at 20:00 Glucagon (Glucagen) 1 mg Q15M PRN IM DECREASED GLUCOSE; Start 02/08/19 at 20:00 Glucose (Glutose) 15 gm Q15M PRN BUCCAL DECREASED GLUCOSE; Start 02/08/19 at 20:00 Enoxaparin Sodium (Lovenox) 30 mg DAILY SC Last administered on 02/14/19at 08:04; Admin Dose 30 MG; Start 02/09/19 at 09:00 Senna (Senokot) 2 tab BID PO Last administered on 02/14/19at 07:58; Admin Dose 2 TAB; Start 02/10/19 at 11:30 Insulin Glargine (Lantus) 20 units DAILY@2000 SC Last administered on 02/13/19at 21:22; Admin Dose 20 UNITS; Start 02/12/19 at 20:00 Insulin Aspart (Novolog Insulin Pen) 8 unit AC MEALS SC Last administered on 02/14/19at 17:59; Admin Dose 8 UNIT; Start 02/14/19 at 07:00 Insulin Human NPH (Humulin N) 6 unit DAILY@2200 SC ; Start 02/14/19 at 22:00 Insulin Aspart (Novolog Insulin Pen) NOVOLOG *CUSTOM* ALGORITHM AC MEALS AND BEDTIME SC ; Start 02/14/19 at 17:30 ANAIS DOWNS Feb 14, 2019 18:28
[2019-02-14] MEDS: INSULIN GLARGINE [LANTus] (100 UNITS/ML) SYG SC SCH (21:29)
[2019-02-14] MEDS: NPH, HUMAN INSULIN ISOPHANE 3ML VIAL SC SCH (21:29)
[2019-02-15 00:14] VITALS: BP 140/65; PULSE 86; RESP 19
[2019-02-15] MEDS: ACCU-CHEK XX SCH (02:15)
[2019-02-15 04:00] VITALS: BP 126/65; PULSE 61; RESP 18
[2019-02-15] MEDS: PANTOPRAZOLE (EC) 40 MG TAB PO SCH (05:30)
[2019-02-15] MEDS: INSULIN ASPART [NOVOLOG] 3 ML PEN SC SCH ×7 (07:00→21:07)
[2019-02-15 08:02] VITALS: BP 140/81; PULSE 79; RESP 19
[2019-02-15] MEDS: SENNA TAB PO SCH ×2 (08:18→21:03)
[2019-02-15] MEDS: LEVETIRACETAM 500 MG TAB PO SCH ×2 (08:18→21:03)
[2019-02-15] MEDS: QUETIAPINE 25 MG TAB PO SCH ×3 (08:19→21:03)
[2019-02-15] MEDS: ENOXAPARIN 30 MG/0.3 ML SYG SC SCH (10:06)
[2019-02-15 11:08] VITALS: BP 126/66; PULSE 83; RESP 18
[2019-02-15 15:07] VITALS: BP 109/59; PULSE 70; RESP 18
--- NOTE | 2019-02-15 18:10 | CONS ---
Assessment/Plan Assessment/Plan Problems: (1) Type 1 diabetes mellitus with hyperglycemia Status: Chronic Comment: Good glycemic control today. However, pt. w/ T1DM and would expect erratic control. Will cont. current insulin doses and monitor. Pt. ok for d/c at any time on current insulin regimen. MUST BE ON basal and scheduled mealtime insulin after discharge as this pt. has T1DM. ISS before meals will not be sufficient. Consultation Date/Type/Reason Admit Date/Time Feb 07, 2019 at 18:24 Initial Consult Date 02/08/19 Type of Consult Endocrinology Reason for Consultation DKA Requesting Provider: ANAIS DOWNS Date/Time of Note DATE: 02/15/19 TIME: 18:03 24 HR Interval Summary Constitutional: no complaints, disoriented Exam/Review of Systems Exam Vitals VS - Last 72 Hours, by Label Date Temp Pulse Resp B/P (MAP) Pulse Ox O2 O2 Flow FiO2 Time Delivery Rate 02/15/19 98.1 70 18 109/59 97 15:07 (76) 02/15/19 98.4 83 18 126/66 98 11:08 (86) 02/15/19 98.1 79 19 140/81 96 08:02 (100) 02/15/19 98.3 61 18 126/65 98 04:00 (85) 02/15/19 97.6 86 19 140/65 100 00:14 (90) 02/14/19 97.9 76 18 129/68 98 20:00 (88) 02/14/19 96.6 72 17 116/62 96 15:14 (80) 02/14/19 77 12:36 02/14/19 98.1 79 16 121/57 97 11:17 (78) 02/14/19 83 08:52 02/14/19 98.4 79 18 126/60 97 07:31 (82) 02/14/19 80 04:00 02/14/19 98.0 83 17 133/85 98 Room Air 00:00 (101) 02/14/19 73 00:00 02/13/19 97.9 91 17 149/84 99 Room Air 20:00 (105) 02/13/19 88 20:00 02/13/19 87 17:14 02/13/19 98.7 87 17 155/86 99 15:14 (109) 02/13/19 100 12:16 02/13/19 96.7 96 17 112/63 100 11:36 (79) 02/13/19 75 08:31 02/13/19 98.5 75 18 136/84 97 07:23 (101) 02/13/19 97.8 68 18 135/75 98 Room Air 04:00 (95) 02/13/19 75 04:00 02/13/19 68 00:00 02/13/19 98.0 80 18 115/81 98 Room Air 00:00 (92) 02/12/19 98.0 76 18 165/86 98 20:16 (112) 02/12/19 70 20:00 Vital Signs Date Temp Pulse Resp B/P (MAP) Pulse Ox O2 O2 Flow FiO2 Time Delivery Rate 02/15/19 98.1 70 18 109/59 97 15:07 (76) 02/14/19 Room Air 00:00 02/12/19 3.0 10:58 Intake and Output 02/14/19 02/14/19 02/15/19 1515:00 23:00 07:00 IntakeIntake Total 600 ml 500 ml OutputOutput Total 600 ml 425 ml 450 ml BalanceBalance 0 ml -425 ml 50 ml Constitutional: alert, well developed; No oriented Respiratory: clear to auscultation, normal air movement Cardiovascular: regular rate and rhythm, nl pulses; No edema, No murmurs/extra sounds, No rub Gastrointestinal: soft, nl liver, spleen, non-tender, bowel sounds Musculoskeletal: nl extremities to inspection Extremities: normal pulses; No cyanosis, No clubbing, No edema 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: [employer] II-XII intact, nl speech, nl strength; No nl mental status Additional Comments Bedside Glucose - 72 Hours Test 02/12/19 20:08 02/12/19 21:25 02/13/19 02:20 02/13/19 02:42 Bedside 211 273 67 113 Glucose mg/dL (70-220) mg/dL (70-220) mg/dL (70-220) mg/dL (70-220) H L Test 02/13/19 07:46 02/13/19 07:58 02/13/19 08:23 02/13/19 08:27 Bedside 60 64 125 142 Glucose mg/dL (70-220) mg/dL (70-220) mg/dL (70-220) mg/dL (70-220) L L Test 02/13/19 11:43 02/13/19 12:17 02/13/19 12:58 02/13/19 17:12 Bedside 69 114 166 97 Glucose mg/dL (70-220) mg/dL (70-220) mg/dL (70-220) mg/dL (70-220) L Test 02/13/19 21:04 02/14/19 01:40 02/14/19 07:42 02/14/19 12:00 Bedside 148 83 245 71 Glucose mg/dL (70-220) mg/dL (70-220) mg/dL (70-220) mg/dL (70-220) H Test 02/14/19 17:16 02/14/19 17:38 02/14/19 21:16 02/15/19 01:50 Bedside 66 104 92 204 Glucose mg/dL (70-220) mg/dL (70-220) mg/dL (70-220) mg/dL (70-220) L Test 02/15/19 07:46 02/15/19 09:00 02/15/19 11:44 02/15/19 17:03 Bedside 93 199 170 100 Glucose mg/dL (70-220) mg/dL (70-220) mg/dL (70-220) mg/dL (70-220) Results Result Diagram: 02/11/19 0425 02/14/19 0540 Results 24hrs Laboratory Tests Test 02/14/19 21:16 02/15/19 01:50 02/15/19 07:46 02/15/19 09:00 Bedside Glucose 92 204 93 199 Test 02/15/19 11:44 02/15/19 17:03 Bedside Glucose 170 100 Medications Medication Current Medications Pantoprazole (Protonix Tab) 40 mg DAILY@06 PO Last administered on 02/15/19at 05:30; Admin Dose 40 MG; Start 02/08/19 at 06:00 Acetaminophen (Tylenol Tab) 650 mg Q4H PRN PO MILD PAIN(1-3)OR ELEVATED TEMP; Start 02/08/19 at 02:00 Ondansetron HCl (Zofran Inj) 4 mg Q6H PRN IV NAUSEA AND/OR VOMITING; Start 02/08/19 at 02:00 Zolpidem Tartrate (Ambien) 5 mg HS PRN PO INSOMNIA; Start 02/08/19 at 02:00 Quetiapine Fumarate (Seroquel) 25 mg TID PO Last administered on 02/15/19at 12:33; Admin Dose 25 MG; Start 02/08/19 at 09:00 Levetiracetam (Keppra) 1,000 mg BID PO Last administered on 02/15/19at 08:18; Admin Dose 1,000 MG; Start 02/08/19 at 09:00 Diagnostic Test (Pha) (Accu-Chek) 1 ea 02 XX Last administered on 02/15/19at 02:15; Admin Dose 1 EA; Start 02/09/19 at 02:00 Miscellaneous Information 1 ea NOTE XX ; Start 02/08/19 at 20:00 Glucose (Glutose) 15 gm Q15M PRN PO DECREASED GLUCOSE; Start 02/08/19 at 20:00 Glucose (Glutose) 22.5 gm Q15M PRN PO DECREASED GLUCOSE; Start 02/08/19 at 20:00 Dextrose (D50w Syringe) 25 ml Q15M PRN IV DECREASED GLUCOSE Last administered on 02/09/19at 12:16; Admin Dose 25 ML; Start 02/08/19 at 20:00 Dextrose (D50w Syringe) 50 ml Q15M PRN IV DECREASED GLUCOSE; Start 02/08/19 at 20:00 Glucagon (Glucagen) 1 mg Q15M PRN IM DECREASED GLUCOSE; Start 02/08/19 at 20:00 Glucose (Glutose) 15 gm Q15M PRN BUCCAL DECREASED GLUCOSE; Start 02/08/19 at 20:00 Enoxaparin Sodium (Lovenox) 30 mg DAILY SC Last administered on 02/15/19at 10:06; Admin Dose 30 MG; Start 02/09/19 at 09:00 Senna (Senokot) 2 tab BID PO Last administered on 02/15/19at 08:18; Admin Dose 2 TAB; Start 02/10/19 at 11:30 Insulin Glargine (Lantus) 20 units DAILY@2000 SC Last administered on 02/14/19at 21:29; Admin Dose 20 UNITS; Start 02/12/19 at 20:00 Insulin Aspart (Novolog Insulin Pen) 8 unit AC MEALS SC Last administered on 02/15/19 11:55; Admin Dose 8 UNIT; Start 02/14/19 at 07:00 Insulin Human NPH (Humulin N) 6 unit DAILY@2200 SC Last administered on 21:29; Admin Dose 6 UNIT; Start 02/14/19 at 22:00 Insulin Aspart (Novolog Insulin Pen) NOVOLOG *CUSTOM* ALGORITHM AC MEALS AND BEDTIME SC Last administered on 02/15/19 11:49; Admin Dose 1 UNIT; Start 02/14/19 at 17:30 RUBIN CHACON MD Feb 15, 2019 18:10
[2019-02-15 20:00] VITALS: BP 124/59; PULSE 87; RESP 18
--- NOTE | 2019-02-15 20:59 | PN ---
Date/Time of Note Date/Time of Note DATE: 02/15/19 TIME: 20:54 Assessment/Plan VTE Prophylaxis Risk score (from Nsg)>0 risk: 3 SCD applied (from Nsg): Yes Pharmacological prophylaxis: LMWH Lines/Catheters IV Catheter Type (from Nrsg): Saline Lock Urinary Cath still in place: No Assessment/Plan Hospital Course No acute events overnight, patient is able to eat most of his meals, last blood glucose 307, however, better controlled overall. Patient remains hemodynamically stable in sinus rhythm we will downgrade to medical surgical floor. If patient blood sugar is adequately controlled patient can be [facility] back [facility] facility on current insulin regimen recommended by endocrinology. Assessment/Plan -T1 DM, continue management per endo recs.Pt is currently on Lantus, NPH and premeal Novolog. Dr. Sanchez is following in endocrinology consultation. -S/p DKA -Systemic inflammatory response syndrome with leukocytosis most likely secondary to DKA, resolved. -Acute kidney injury,resolved. -Epilepsy, continue Keppra -Hypertension, continue lisinopril Further recommendations based on clinical course. Plan of care discussed with Dr. Valdivia. Result Diagram: 02/11/19 0425 02/14/19 0540 Results 24hrs Laboratory Tests Test 02/14/19 21:16 02/15/19 01:50 02/15/19 07:46 02/15/19 09:00 Bedside Glucose 92 204 93 199 Test 02/15/19 11:44 02/15/19 17:03 02/15/19 18:47 Bedside Glucose 170 100 307 H Exam/Review of Systems Exam Vitals Vital Signs Date Temp Pulse Resp B/P (MAP) Pulse Ox O2 O2 Flow FiO2 Time Delivery Rate 02/15/19 98.4 87 18 124/59 97 20:00 (80) 02/14/19 Room Air 00:00 02/12/19 3.0 10:58 Intake and Output 02/14/19 02/14/19 02/15/19 1414:59 22:59 06:59 IntakeIntake Total 600 ml 500 ml OutputOutput Total 600 ml 425 ml 450 ml BalanceBalance 0 ml -425 ml 50 ml Exam Constitutional: alert, oriented Respiratory: clear to auscultation Cardiovascular: regular rate and rhythm Gastrointestinal: soft, non-tender Musculoskeletal: nl extremities to inspection Extremities: normal pulses 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: nl mental status Skin: nl turgor Results Results 24hrs Laboratory Tests Test 02/14/19 21:16 02/15/19 01:50 02/15/19 07:46 02/15/19 09:00 Bedside Glucose 92 204 93 199 Test 02/15/19 11:44 02/15/19 17:03 02/15/19 18:47 Bedside Glucose 170 100 307 H Medications Medication Current Medications Pantoprazole (Protonix Tab) 40 mg DAILY@06 PO Last administered on 02/15/19at 05:30; Admin Dose 40 MG; Start 02/08/19 at 06:00 Acetaminophen (Tylenol Tab) 650 mg Q4H PRN PO MILD PAIN(1-3)OR ELEVATED TEMP; Start 02/08/19 at 02:00 Ondansetron HCl (Zofran Inj) 4 mg Q6H PRN IV NAUSEA AND/OR VOMITING; Start 02/08/19 at 02:00 Zolpidem Tartrate (Ambien) 5 mg HS PRN PO INSOMNIA; Start 02/08/19 at 02:00 Quetiapine Fumarate (Seroquel) 25 mg TID PO Last administered on 02/15/19at 12:33; Admin Dose 25 MG; Start 02/08/19 at 09:00 Levetiracetam (Keppra) 1,000 mg BID PO Last administered on 02/15/19at 08:18; Admin Dose 1,000 MG; Start 02/08/19 at 09:00 Diagnostic Test (Pha) (Accu-Chek) 1 ea 02 XX Last administered on 02/15/19at 02:15; Admin Dose 1 EA; Start 02/09/19 at 02:00 Miscellaneous Information 1 ea NOTE XX ; Start 02/08/19 at 20:00 Glucose (Glutose) 15 gm Q15M PRN PO DECREASED GLUCOSE; Start 02/08/19 at 20:00 Glucose (Glutose) 22.5 gm Q15M PRN PO DECREASED GLUCOSE; Start 02/08/19 at 20:00 Dextrose (D50w Syringe) 25 ml Q15M PRN IV DECREASED GLUCOSE Last administered on 02/09/19at 12:16; Admin Dose 25 ML; Start 02/08/19 at 20:00 Dextrose (D50w Syringe) 50 ml Q15M PRN IV DECREASED GLUCOSE; Start 02/08/19 at 20:00 Glucagon (Glucagen) 1 mg Q15M PRN IM DECREASED GLUCOSE; Start 02/08/19 at 20:00 Glucose (Glutose) 15 gm Q15M PRN BUCCAL DECREASED GLUCOSE; Start 02/08/19 at 20:00 Enoxaparin Sodium (Lovenox) 30 mg DAILY SC Last administered on 02/15/19 10:06; Admin Dose 30 MG; Start 02/09/19 at 09:00 Senna (Senokot) 2 tab BID PO Last administered on 02/15/19 08:18; Admin Dose 2 TAB; Start 02/10/19 at 11:30 Insulin Glargine (Lantus) 20 units DAILY@2000 SC Last administered on 02/14/19 21:29; Admin Dose 20 UNITS; Start 02/12/19 at 20:00 Insulin Aspart (Novolog Insulin Pen) 8 unit AC MEALS SC Last administered on 02/15/19 18:52; Admin Dose 8 UNIT; Start 02/14/19 at 07:00 Insulin Human NPH (Humulin N) 6 unit DAILY@2200 SC Last administered on 02/14/19 21:29; Admin Dose 6 UNIT; Start 02/14/19 at 22:00 Insulin Aspart (Novolog Insulin Pen) NOVOLOG *CUSTOM* ALGORITHM AC MEALS AND BEDTIME SC Last administered on 02/15/19at 11:49; Admin Dose 1 UNIT; Start 02/14/19 at 17:30 ANAIS DOWNS Feb 15, 2019 20:59
[2019-02-15] MEDS: INSULIN GLARGINE [LANTus] (100 UNITS/ML) SYG SC SCH (21:07)
[2019-02-15] MEDS: NPH, HUMAN INSULIN ISOPHANE 3ML VIAL SC SCH (21:08)
[2019-02-16] VITALS: BP 133/77; PULSE 79; RESP 18
[2019-02-16] MEDS: ACCU-CHEK XX SCH (01:28)
[2019-02-16 02:05] VITALS: BP 122/68; PULSE 73; RESP 18
[2019-02-16] MEDS: PANTOPRAZOLE (EC) 40 MG TAB PO SCH (05:37)
[2019-02-16] MEDS: INSULIN ASPART [NOVOLOG] 3 ML PEN SC SCH ×7 (07:00→21:00)
[2019-02-16 07:28] VITALS: BP 123/56; PULSE 65; RESP 18
[2019-02-16] MEDS: QUETIAPINE 25 MG TAB PO SCH ×3 (08:39→20:34)
[2019-02-16] MEDS: LEVETIRACETAM 500 MG TAB PO SCH ×2 (08:39→20:34)
[2019-02-16] MEDS: SENNA TAB PO SCH ×2 (08:39→20:34)
[2019-02-16] MEDS: ENOXAPARIN 30 MG/0.3 ML SYG SC SCH (08:47)
--- NOTE | 2019-02-16 12:22 | PN ---
Date/Time of Note Date/Time of Note DATE: 02/16/19 TIME: 12:21 Assessment/Plan VTE Prophylaxis Risk score (from Nsg)>0 risk: 3 SCD applied (from Nsg): No Lines/Catheters IV Catheter Type (from Nrsg): Saline Lock Urinary Cath still in place: No Assessment/Plan Assessment/Plan -T1 DM, continue management per endo recs.Pt is currently on Lantus, NPH and premeal Novolog. Dr. Sanchez is following in endocrinology consultation. -S/p DKA -Systemic inflammatory response syndrome with leukocytosis most likely secondary to DKA, resolved. -Acute kidney injury,resolved. -Epilepsy, continue Keppra -Hypertension, continue lisinopril Further recommendations based on clinical course. Plan of care discussed with Dr. Valdivia. Result Diagram: 02/14/19 0540 Results 24hrs Laboratory Tests Test 02/15/19 17:03 02/15/19 18:47 02/15/19 21:04 02/16/19 01:27 Bedside Glucose 100 307 H 231 H 92 Test 02/16/19 08:38 02/16/19 10:40 Bedside Glucose 91 101 Exam/Review of Systems Exam Vitals Vital Signs Date Temp Pulse Resp B/P (MAP) Pulse Ox O2 O2 Flow FiO2 Time Delivery Rate 02/16/19 98.3 65 18 123/56 99 Room Air 07:28 (78) 02/12/19 3.0 10:58 Intake and Output 02/15/19 02/15/19 02/16/19 1515:00 23:00 07:00 IntakeIntake Total 660 ml 360 ml 236 ml OutputOutput Total 300 ml 400 ml BalanceBalance 660 ml 60 ml -164 ml Results Results 24hrs Laboratory Tests Test 02/15/19 17:03 02/15/19 18:47 02/15/19 21:04 02/16/19 01:27 Bedside Glucose 100 307 H 231 H 92 Test 02/16/19 08:38 02/16/19 10:40 Bedside Glucose 91 101 Medications Medication Current Medications Pantoprazole (Protonix Tab) 40 mg DAILY@06 PO Last administered on 02/16/19at 05:37; Admin Dose 40 MG; Start 02/08/19 at 06:00 Acetaminophen (Tylenol Tab) 650 mg Q4H PRN PO MILD PAIN(1-3)OR ELEVATED TEMP; Start 02/08/19 at 02:00 Ondansetron HCl (Zofran Inj) 4 mg Q6H PRN IV NAUSEA AND/OR VOMITING; Start 02/08/19 at 02:00 Zolpidem Tartrate (Ambien) 5 mg HS PRN PO INSOMNIA; Start 02/08/19 at 02:00 Quetiapine Fumarate (Seroquel) 25 mg TID PO Last administered on 02/16/19 08:39; Admin Dose 25 MG; Start 02/08/19 at 09:00 Levetiracetam (Keppra) 1,000 mg BID PO Last administered on 02/16/19 08:39; Admin Dose 1,000 MG; Start 02/08/19 at 09:00 Diagnostic Test (Pha) (Accu-Chek) 1 ea 02 XX Last administered on 02/16/19 01:28; Admin Dose 1 EA; Start 02/09/19 at 02:00 Miscellaneous Information 1 ea NOTE XX ; Start 02/08/19 at 20:00 Glucose (Glutose) 15 gm Q15M PRN PO DECREASED GLUCOSE; Start 02/08/19 at 20:00 Glucose (Glutose) 22.5 gm Q15M PRN PO DECREASED GLUCOSE; Start 02/08/19 at 20:00 Dextrose (D50w Syringe) 25 ml Q15M PRN IV DECREASED GLUCOSE Last administered on 02/09/19at 12:16; Admin Dose 25 ML; Start 02/08/19 at 20:00 Dextrose (D50w Syringe) 50 ml Q15M PRN IV DECREASED GLUCOSE; Start 02/08/19 at 20:00 Glucagon (Glucagen) 1 mg Q15M PRN IM DECREASED GLUCOSE; Start 02/08/19 at 20:00 Glucose (Glutose) 15 gm Q15M PRN BUCCAL DECREASED GLUCOSE; Start 02/08/19 at 20:00 Enoxaparin Sodium (Lovenox) 30 mg DAILY SC Last administered on 02/16/19at 08:47; Admin Dose 30 MG; Start 02/09/19 at 09:00 Senna (Senokot) 2 tab BID PO Last administered on 02/16/19 08:39; Admin Dose 2 TAB; Start 02/10/19 at 11:30 Insulin Glargine (Lantus) 20 units DAILY@2000 SC Last administered on 02/15/19 21:07; Admin Dose 20 UNITS; Start 02/12/19 at 20:00 Insulin Aspart (Novolog Insulin Pen) 8 unit AC MEALS SC Last administered on 02/16/19 10:47; Admin Dose 8 UNIT; Start 02/14/19 at 07:00 Insulin Human NPH (Humulin N) 6 unit DAILY@2200 SC Last administered on 02/15/19 21:08; Admin Dose 6 UNIT; Start 02/14/19 at 22:00 Insulin Aspart (Novolog Insulin Pen) NOVOLOG *CUSTOM* ALGORITHM AC MEALS AND BEDTIME SC Last administered on 02/15/19 21:07; Admin Dose 1 UNIT; Start 02/14/19 at 17:30 ELIECER ROSS Feb 16, 2019 12:21
[2019-02-16 14:58] VITALS: BP 114/57; PULSE 84; RESP 18
--- NOTE | 2019-02-16 19:41 | CONS ---
Assessment/Plan Assessment/Plan Problems: (1) Type 1 diabetes mellitus with hyperglycemia Status: Chronic Comment: Hyperglycemic last night. This has resolved today. No changes in insulin dosing. Glucose levels are as good as can be expected in this patient. Insulin doses optimized. Pt. will continue to have both high and low glucose episodes as are consistent with a diagnosis of T1DM. Can be d/c'ed at any time on these doses from endo perspective. Consultation Date/Type/Reason Admit Date/Time Feb 07, 2019 at 18:24 Initial Consult Date 02/08/19 Type of Consult Endocrinology Reason for Consultation DKA Requesting Provider: ANAIS DOWNS Date/Time of Note DATE: 02/16/19 TIME: 19:36 24 HR Interval Summary Constitutional: no complaints, disoriented Exam/Review of Systems Exam Vitals VS - Last 72 Hours, by Label Date Temp Pulse Resp B/P (MAP) Pulse Ox O2 O2 Flow FiO2 Time Delivery Rate 02/16/19 98.1 84 18 114/57 99 Room Air 14:58 (76) Venturi Mask 02/16/19 98.3 65 18 123/56 99 Room Air 07:28 (78) 02/16/19 98.4 73 18 122/68 98 02:05 (86) 02/16/19 98.5 79 18 133/77 98 00:00 (95) 02/15/19 98.4 87 18 124/59 97 20:00 (80) 02/15/19 98.1 70 18 109/59 97 15:07 (76) 02/15/19 98.4 83 18 126/66 98 11:08 (86) 02/15/19 98.1 79 19 140/81 96 08:02 (100) 02/15/19 98.3 61 18 126/65 98 04:00 (85) 02/15/19 97.6 86 19 140/65 100 00:14 (90) 02/14/19 97.9 76 18 129/68 98 20:00 (88) 02/14/19 96.6 72 17 116/62 96 15:14 (80) 02/14/19 77 12:36 02/14/19 98.1 79 16 121/57 97 11:17 (78) 02/14/19 83 08:52 02/14/19 98.4 79 18 126/60 97 07:31 (82) 02/14/19 80 04:00 02/14/19 98.0 83 17 133/85 98 Room Air 00:00 (101) 02/14/19 73 00:00 02/13/19 97.9 91 17 149/84 99 Room Air 20:00 (105) 02/13/19 88 20:00 Vital Signs Date Temp Pulse Resp B/P (MAP) Pulse Ox O2 O2 Flow FiO2 Time Delivery Rate 02/16/19 98.1 84 18 114/57 99 Room Air 14:58 (76) Venturi Mask 02/12/19 3.0 10:58 Intake and Output 02/15/19 02/15/19 02/16/19 1515:00 23:00 07:00 IntakeIntake Total 660 ml 360 ml 236 ml OutputOutput Total 300 ml 400 ml BalanceBalance 660 ml 60 ml -164 ml Constitutional: alert, well developed; No oriented Respiratory: clear to auscultation, normal air movement Cardiovascular: regular rate and rhythm, nl pulses; No edema, No murmurs/extra sounds, No rub Gastrointestinal: soft, nl liver, spleen, non-tender, bowel sounds; No mass, No rebound or guarding Musculoskeletal: nl extremities to inspection Extremities: normal pulses; No cyanosis, No clubbing, No edema 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, nl speech, nl strength, confused Additional Comments Bedside Glucose - 72 Hours Test 02/13/19 21:04 02/14/19 01:40 02/14/19 07:42 02/14/19 12:00 Bedside 148 83 245 71 Glucose mg/dL (70-220) mg/dL (70-220) mg/dL (70-220) mg/dL (70-220) H Test 02/14/19 17:16 02/14/19 17:38 02/14/19 21:16 02/15/19 01:50 Bedside 66 104 92 204 Glucose mg/dL (70-220) mg/dL (70-220) mg/dL (70-220) mg/dL (70-220) L Test 02/15/19 07:46 02/15/19 09:00 02/15/19 11:44 02/15/19 17:03 Bedside 93 199 170 100 Glucose mg/dL (70-220) mg/dL (70-220) mg/dL (70-220) mg/dL (70-220) Test 02/15/19 18:47 02/15/19 21:04 02/16/19 01:27 02/16/19 08:38 Bedside 307 231 92 91 Glucose mg/dL (70-220) mg/dL (70-220) mg/dL (70-220) mg/dL (70-220) H H Test 02/16/19 10:40 02/16/19 12:42 02/16/19 17:18 Bedside 101 160 88 Glucose mg/dL (70-220) mg/dL (70-220) mg/dL (70-220) Results Result Diagram: 02/14/19 0540 Results 24hrs Laboratory Tests Test 02/15/19 21:04 02/16/19 01:27 02/16/19 08:38 02/16/19 10:40 Bedside Glucose 231 H 92 91 101 Test 02/16/19 12:42 02/16/19 17:18 Bedside Glucose 160 88 Medications Medication Current Medications Pantoprazole (Protonix Tab) 40 mg DAILY@06 PO Last administered on 02/16/19at 05:37; Admin Dose 40 MG; Start 02/08/19 at 06:00 Acetaminophen (Tylenol Tab) 650 mg Q4H PRN PO MILD PAIN(1-3)OR ELEVATED TEMP; Start 02/08/19 at 02:00 Ondansetron HCl (Zofran Inj) 4 mg Q6H PRN IV NAUSEA AND/OR VOMITING; Start 02/08/19 at 02:00 Zolpidem Tartrate (Ambien) 5 mg HS PRN PO INSOMNIA; Start 02/08/19 at 02:00 Quetiapine Fumarate (Seroquel) 25 mg TID PO Last administered on 02/16/19at 12:48; Admin Dose 25 MG; Start 02/08/19 at 09:00 Levetiracetam (Keppra) 1,000 mg BID PO Last administered on 02/16/19at 08:39; Admin Dose 1,000 MG; Start 02/08/19 at 09:00 Diagnostic Test (Pha) (Accu-Chek) 1 ea 02 XX Last administered on 02/16/19at 01:28; Admin Dose 1 EA; Start 02/09/19 at 02:00 Miscellaneous Information 1 ea NOTE XX ; Start 02/08/19 at 20:00 Glucose (Glutose) 15 gm Q15M PRN PO DECREASED GLUCOSE; Start 02/08/19 at 20:00 Glucose (Glutose) 22.5 gm Q15M PRN PO DECREASED GLUCOSE; Start 02/08/19 at 2 0:00 Dextrose (D50w Syringe) 25 ml Q15M PRN IV DECREASED GLUCOSE Last administered on 02/09/19at 12:16; Admin Dose 25 ML; Start 02/08/19 at 20:00 Dextrose (D50w Syringe) 50 ml Q15M PRN IV DECREASED GLUCOSE; Start 02/08/19 at 20:00 Glucagon (Glucagen) 1 mg Q15M PRN IM DECREASED GLUCOSE; Start 02/08/19 at 20:00 Glucose (Glutose) 15 gm Q15M PRN BUCCAL DECREASED GLUCOSE; Start 02/08/19 at 20:00 Enoxaparin Sodium (Lovenox) 30 mg DAILY SC Last administered on 02/16/19at 08:47; Admin Dose 30 MG; Start 02/09/19 at 09:00 Senna (Senokot) 2 tab BID PO Last administered on 02/16/19 08:39; Admin Dose 2 TAB; Start 02/10/19 at 11:30 Insulin Glargine (Lantus) 20 units DAILY@2000 SC Last administered on 02/15/19at 21:07; Admin Dose 20 UNITS; Start 02/12/19 at 20:00 Insulin Aspart (Novolog Insulin Pen) 8 unit AC MEALS SC Last administered on 02/16/19at 17:21; Admin Dose 8 UNIT; Start 02/14/19 at 07:00 Insulin Human NPH (Humulin N) 6 unit DAILY@2200 SC Last administered on 02/15/19 21:08; Admin Dose 6 UNIT; Start 02/14/19 at 22:00 Insulin Aspart (Novolog Insulin Pen) NOVOLOG *CUSTOM* ALGORITHM AC MEALS AND BEDTIME SC Last administered on 02/16/19 12:47; Admin Dose 1 UNIT; Start 02/14/19 at 17:30 RUBIN CHACON MD Feb 16, 2019 19:41
[2019-02-16 19:48] VITALS: BP 125/60; PULSE 83; RESP 18
[2019-02-16] MEDS: INSULIN GLARGINE [LANTus] (100 UNITS/ML) SYG SC SCH (20:39)
[2019-02-16] MEDS: NPH, HUMAN INSULIN ISOPHANE 3ML VIAL SC SCH (22:00)
[2019-02-17] MEDS: ACCU-CHEK XX SCH (02:00)
[2019-02-17 02:13] VITALS: BP 140/80; PULSE 76; RESP 18
[2019-02-17] MEDS: PANTOPRAZOLE (EC) 40 MG TAB PO SCH (05:52)
[2019-02-17] MEDS: INSULIN ASPART [NOVOLOG] 3 ML PEN SC SCH ×7 (07:00→20:38)
[2019-02-17 07:55] VITALS: BP 131/72; PULSE 69; RESP 17
[2019-02-17] MEDS: QUETIAPINE 25 MG TAB PO SCH ×3 (09:06→20:38)
[2019-02-17] MEDS: SENNA TAB PO SCH ×2 (09:06→20:38)
[2019-02-17] MEDS: LEVETIRACETAM 500 MG TAB PO SCH ×2 (09:06→20:38)
[2019-02-17] MEDS: ENOXAPARIN 30 MG/0.3 ML SYG SC SCH (09:11)
--- NOTE | 2019-02-17 11:29 | PN ---
Date/Time of Note Date/Time of Note DATE: 02/17/19 TIME: 11:28 Assessment/Plan VTE Prophylaxis Risk score (from Ns)>0 risk: 3 SCD applied (from Ns): No SCD contraindicated: other Pharmacological prophylaxis: LMWH Lines/Catheters IV [facility]from [facility] Saline Lock Urinary Cath still in place: No Assessment/Plan Hospital Course -T1 DM, continue management per endo recs.Pt is currently on Lantus, NPH and premeal Novolog. Dr. Sanchez is following in endocrinology consultation. -S/p DKA -Systemic inflammatory response syndrome with leukocytosis most likely secondary to DKA, resolved. -Acute kidney injury,resolved. -Epilepsy, continue Keppra -Hypertension, continue lisinopril Result Diagram: 02/17/19 0504 02/17/19 0504 Results 24hrs Laboratory Tests Test 02/16/19 12:42 02/16/19 17:18 02/16/19 20:35 02/16/19 21:52 Bedside Glucose 160 88 138 86 Test 02/17/19 05:04 02/17/19 08:03 White Blood Count 6.7 # Red Blood Count 4.16 L Hemoglobin 12.1 L Hematocrit 37.2 L Mean Corpuscular 89.4 Volume Mean Corpuscular 29.1 Hemoglobin Mean Corpuscular 32.5 Hemoglobin Concent Red Cell 14.2 Distribution Width Platelet Count 404 # Mean Platelet Volume 10.0 Immature 1.600 H Granulocytes % Neutrophils % 37.4 L Lymphocytes % 41.9 Monocytes % 16.6 H Eosinophils % 1.6 Basophils % 0.9 Nucleated Red Blood 0.0 Cells % Immature 0.110 H Granulocytes # Neutrophils # 2.5 Lymphocytes # 2.8 Monocytes # 1.1 H Eosinophils # 0.1 Basophils # 0.1 Nucleated Red Blood 0.0 Cells # Sodium Level 141 Potassium Level 4.2 Chloride Level 106 Carbon Dioxide Level 26 Anion Gap 9 Blood Urea Nitrogen 22 H Creatinine 0.71 Est Glomerular Filtrat Rate mL/min Glucose Level 186 Calcium Level 9.0 Bedside Glucose 134 Subjective 24 Hr Interval Summary Free Text/Dictation Patient has no complaints Exam/Review of Systems Exam Vitals Vital Signs Date Temp Pulse Resp B/P (MAP) Pulse Ox O2 O2 Flow FiO2 Time Delivery Rate 02/17/19 98.6 69 17 131/72 99 07:55 (91) 02/16/19 Room Air 14:58 Venturi Mask Intake and Output 02/16/19 02/16/19 02/17/19 1515:00 23:00 07:00 IntakeIntake Total 400 ml 358 ml OutputOutput Total 430 ml 600 ml BalanceBalance -30 ml -242 ml Constitutional: well developed Head: normocephalic, atraumatic Neck: supple Respiratory: diminished breath sounds Cardiovascular: regular rate and rhythm Gastrointestinal: soft, non-tender Extremities: normal pulses Results Results 24hrs Laboratory Tests Test 02/16/19 12:42 02/16/19 17:18 02/16/19 20:35 02/16/19 21:52 Bedside Glucose 160 88 138 86 Test 02/17/19 05:04 02/17/19 08:03 White Blood Count 6.7 # Red Blood Count 4.16 L Hemoglobin 12.1 L Hematocrit 37.2 L Mean Corpuscular 89.4 Volume Mean Corpuscular 29.1 Hemoglobin Mean Corpuscular 32.5 Hemoglobin Concent Red Cell 14.2 Distribution Width Platelet Count 404 # Mean Platelet Volume 10.0 Immature 1.600 H Granulocytes % Neutrophils % 37.4 L Lymphocytes % 41.9 Monocytes % 16.6 H Eosinophils % 1.6 Basophils % 0.9 Nucleated Red Blood 0.0 Cells % Immature 0.110 H Granulocytes # Neutrophils # 2.5 Lymphocytes # 2.8 Monocytes # 1.1 H Eosinophils # 0.1 Basophils # 0.1 Nucleated Red Blood 0.0 Cells # Sodium Level 141 Potassium Level 4.2 Chloride Level 106 Carbon Dioxide Level 26 Anion Gap 9 Blood Urea Nitrogen 22 H Creatinine 0.71 Est Glomerular Filtrat Rate mL/min Glucose Level 186 Calcium Level 9.0 Bedside Glucose 134 Medications Medication Current Medications Pantoprazole (Protonix Tab) 40 mg DAILY@06 PO Last administered on 02/17/19at 05:52; Admin Dose 40 MG; Start 02/08/19 at 06:00 Acetaminophen (Tylenol Tab) 650 mg Q4H PRN PO MILD PAIN(1-3)OR ELEVATED TEMP; Start 02/08/19 at 02:00 Ondansetron HCl (Zofran Inj) 4 mg Q6H PRN IV NAUSEA AND/OR VOMITING; Start 02/08/19 at 02:00 Zolpidem Tartrate (Ambien) 5 mg HS PRN PO INSOMNIA; Start 02/08/19 at 02:00 Quetiapine Fumarate (Seroquel) 25 mg TID PO Last administered on 02/17/19 09:06; Admin Dose 25 MG; Start 02/08/19 at 09:00 Levetiracetam (Keppra) 1,000 mg BID PO Last administered on 02/17/19 09:06; Admin Dose 1,000 MG; Start 02/08/19 at 09:00 Diagnostic Test (Pha) (Accu-Chek) 1 ea 02 XX Last administered on 02/16/19 01:28; Admin Dose 1 EA; Start 02/09/19 at 02:00 Miscellaneous Information 1 ea NOTE XX ; Start 02/08/19 at 20:00 Glucose (Glutose) 15 gm Q15M PRN PO DECREASED GLUCOSE; Start 02/08/19 at 20:00 Glucose (Glutose) 22.5 gm Q15M PRN PO DECREASED GLUCOSE; Start 02/08/19 at 20:00 Dextrose (D50w Syringe) 25 ml Q15M PRN IV DECREASED GLUCOSE Last administered on 02/09/19at 12:16; Admin Dose 25 ML; Start 02/08/19 at 20:00 Dextrose (D50w Syringe) 50 ml Q15M PRN IV DECREASED GLUCOSE; Start 02/08/19 at 20:00 Glucagon (Glucagen) 1 mg Q15M PRN IM DECREASED GLUCOSE; Start 02/08/19 at 20:00 Glucose (Glutose) 15 gm Q15M PRN BUCCAL DECREASED GLUCOSE; Start 02/08/19 at 20:00 Enoxaparin Sodium (Lovenox) 30 mg DAILY SC Last administered on 02/17/19 09:11; Admin Dose 30 MG; Start 02/09/19 at 09:00 Senna (Senokot) 2 tab BID PO Last administered on 02/17/19 09:06; Admin Dose 2 TAB; Start 02/10/19 at 11:30 Insulin Glargine (Lantus) 20 units DAILY@2000 SC Last administered on 02/16/19 20:39; Admin Dose 20 UNITS; Start 02/12/19 at 20:00 Insulin Aspart (Novolog Insulin Pen) 8 unit AC MEALS SC Last administered on 6/29/19at 08:06; Admin Dose 8 UNIT; Start 02/14/19 at 07:00 Insulin Human NPH (Humulin N) 6 unit DAILY@2200 SC Last administered on 02/15/19at 21:08; Admin Dose 6 UNIT; Start 02/14/19 at 22:00 Insulin Aspart (Novolog Insulin Pen) NOVOLOG *CUSTOM* ALGORITHM AC MEALS AND BEDTIME SC Last administered on 02/16/19at 12:47; Admin Dose 1 UNIT; Start 02/14/19 at 17:30 DARRICK CLEANING Feb 17, 2019 11:28
[2019-02-17 14:50] VITALS: BP 106/60; PULSE 78; RESP 18
--- NOTE | 2019-02-17 15:25 | CONS ---
Assessment/Plan Assessment/Plan Problems: (1) Type 1 diabetes mellitus with hyperglycemia Status: Chronic Comment: Good glycemic control past 24 hours. Required less insulin last night with decent blood glucose levels overnight and this AM. Will monitor today and see if we can discontinue the NPH at HS. This will be determined by evening blood glucose levels. Consultation Date/Type/Reason Admit Date/Time Feb 07, 2019 at 18:24 Initial Consult Date 02/08/19 Type of Consult Endocrine Reason for Consultation Glucose management Requesting Provider: ANAIS DOWNS Date/Time of Note DATE: 02/17/19 TIME: 15:22 Exam/Review of Systems Exam Vitals Vital Signs Date Temp Pulse Resp B/P (MAP) Pulse Ox O2 O2 Flow FiO2 Time Delivery Rate 02/17/19 97.9 78 18 106/60 98 Room Air 14:50 (75) Intake and Output 02/16/19 02/16/19 02/17/19 1515:00 23:00 07:00 IntakeIntake Total 400 ml 358 ml OutputOutput Total 430 ml 600 ml BalanceBalance -30 ml -242 ml Additional Comments POC glucose reviewed Results Result Diagram: 02/17/19 0504 02/17/19 0504 Results 24hrs Laboratory Tests Test 02/16/19 17:18 02/16/19 20:35 02/16/19 21:52 02/17/19 05:04 Bedside Glucose 88 138 86 White Blood Count 6.7 # Red Blood Count 4.16 L Hemoglobin 12.1 L Hematocrit 37.2 L Mean Corpuscular 89.4 Volume Mean Corpuscular 29.1 Hemoglobin Mean Corpuscular 32.5 Hemoglobin Concent Red Cell 14.2 Distribution Width Platelet Count 404 # Mean Platelet Volume 10.0 Immature 1.600 H Granulocytes % Neutrophils % 37.4 L Lymphocytes % 41.9 Monocytes % 16.6 H Eosinophils % 1.6 Basophils % 0.9 Nucleated Red Blood 0.0 Cells % Immature 0.110 H Granulocytes # Neutrophils # 2.5 Lymphocytes # 2.8 Monocytes # 1.1 H Eosinophils # 0.1 Basophils # 0.1 Nucleated Red Blood 0.0 Cells # Sodium Level 141 Potassium Level 4.2 Chloride Level 106 Carbon Dioxide Level 26 Anion Gap 9 Blood Urea Nitrogen 22 H Creatinine 0.71 Est Glomerular Filtrat Rate mL/min Glucose Level 186 Calcium Level 9.0 Test 02/17/19 08:03 02/17/19 12:05 Bedside Glucose 134 139 Medications Medication Current Medications Pantoprazole (Protonix Tab) 40 mg DAILY@06 PO Last administered on 02/17/19at 05:52; Admin Dose 40 MG; Start 02/08/19 at 06:00 Acetaminophen (Tylenol Tab) 650 mg Q4H PRN PO MILD PAIN(1-3)OR ELEVATED TEMP; Start 02/08/19 at 02:00 Ondansetron HCl (Zofran Inj) 4 mg Q6H PRN IV NAUSEA AND/OR VOMITING; Start 02/08/19 at 02:00 Zolpidem Tartrate (Ambien) 5 mg HS PRN PO INSOMNIA; Start 02/08/19 at 02:00 Quetiapine Fumarate (Seroquel) 25 mg TID PO Last administered on 02/17/19at 12:10; Admin Dose 25 MG; Start 02/08/19 at 09:00 Levetiracetam (Keppra) 1,000 mg BID PO Last administered on 02/17/19at 09:06; Admin Dose 1,000 MG; Start 02/08/19 at 09:00 Diagnostic Test (Pha) (Accu-Chek) 1 ea 02 XX Last administered on 02/16/19at 01:28; Admin Dose 1 EA; Start 02/09/19 at 02:00 Miscellaneous Information 1 ea NOTE XX ; Start 02/08/19 at 20:00 Glucose (Glutose) 15 gm Q15M PRN PO DECREASED GLUCOSE; Start 02/08/19 at 20:00 Glucose (Glutose) 22.5 gm Q15M PRN PO DECREASED GLUCOSE; Start 02/08/19 at 20:00 Dextrose (D50w Syringe) 25 ml Q15M PRN IV DECREASED GLUCOSE Last administered on 02/09/19at 12:16; Admin Dose 25 ML; Start 02/08/19 at 20:00 Dextrose (D50w Syringe) 50 ml Q15M PRN IV DECREASED GLUCOSE; Start 02/08/19 at 20:00 Glucagon (Glucagen) 1 mg Q15M PRN IM DECREASED GLUCOSE; Start 02/08/19 at 20:00 Glucose (Glutose) 15 gm Q15M PRN BUCCAL DECREASED GLUCOSE; Start 02/08/19 at 20:00 Enoxaparin Sodium (Lovenox) 30 mg DAILY SC Last administered on 02/17/19 09:11; Admin Dose 30 MG; Start 02/09/19 at 09:00 Senna (Senokot) 2 tab BID PO Last administered on 02/17/19 09:06; Admin Dose 2 TAB; Start 02/10/19 at 11:30 Insulin Glargine (Lantus) 20 units DAILY@2000 SC Last administered on 02/16/19 20:39; Admin Dose 20 UNITS; Start 02/12/19 at 20:00 Insulin Aspart (Novolog Insulin Pen) 8 unit AC MEALS SC Last administered on 02/17/19 12:10; Admin Dose 8 UNIT; Start 02/14/19 at 07:00 Insulin Human NPH (Humulin N) 6 unit DAILY@2200 SC Last administered on 02/15/19 21:08; Admin Dose 6 UNIT; Start 02/14/19 at 22:00 Insulin Aspart (Novolog Insulin Pen) NOVOLOG *CUSTOM* ALGORITHM AC MEALS AND BEDTIME SC Last administered on 02/16/19 12:47; Admin Dose 1 UNIT; Start 02/14/19 at 17:30 AMRIT OSCAR MD Feb 17, 2019 15:25
[2019-02-17 20:02] VITALS: BP 116/64; PULSE 75; RESP 18
[2019-02-17] MEDS: INSULIN GLARGINE [LANTus] (100 UNITS/ML) SYG SC SCH (20:41)
[2019-02-17] MEDS: NPH, HUMAN INSULIN ISOPHANE 3ML VIAL SC SCH (22:00)
[2019-02-17] MEDS ORDERED: NPH, HUMAN INSULIN ISOPHANE 3ML VIAL SC ONE (22:30)
[2019-02-18] MEDS: ACCU-CHEK XX SCH (01:55)
[2019-02-18 02:24] VITALS: BP 140/71; PULSE 66; RESP 18
[2019-02-18] MEDS: PANTOPRAZOLE (EC) 40 MG TAB PO SCH (06:11)
[2019-02-18 07:58] VITALS: BP 158/72; PULSE 70; RESP 19
[2019-02-18] MEDS: LEVETIRACETAM 500 MG TAB PO SCH ×2 (08:18→20:34)
[2019-02-18] MEDS: SENNA TAB PO SCH ×2 (08:18→20:34)
[2019-02-18] MEDS: INSULIN ASPART [NOVOLOG] 3 ML PEN SC SCH ×7 (08:23→20:40)
[2019-02-18] MEDS: ENOXAPARIN 30 MG/0.3 ML SYG SC SCH (08:24)
[2019-02-18] MEDS: QUETIAPINE 25 MG TAB PO SCH ×3 (08:24→20:34)
--- NOTE | 2019-02-18 12:14 | PN ---
Date/Time of Note Date/Time of Note DATE: 02/18/19 TIME: 12:13 Assessment/Plan VTE Prophylaxis Risk score (from Nsg)>0 risk: 3 SCD applied (from Nsg): Yes Pharmacological prophylaxis: LMWH Lines/Catheters IV Catheter Type (from Nrsg): Saline Lock Urinary Cath still in place: No Assessment/Plan Hospital Course -T1 DM, continue management per endo recs.Pt is currently on Lantus, NPH and premeal Novolog. Dr. Sanchez is following in endocrinology consultation. -S/p DKA -Systemic inflammatory response syndrome with leukocytosis most likely secondary to DKA, resolved. -Acute kidney injury,resolved. -Epilepsy, continue Keppra -Hypertension, continue lisinopril Result Diagram: 02/17/19 0504 02/17/19 0504 Results 24hrs Laboratory Tests Test 02/17/19 17:25 02/17/19 20:38 02/17/19 22:09 02/18/19 03:01 Bedside Glucose 108 149 164 66 L Test 02/18/19 03:23 02/18/19 03:46 02/18/19 04:03 02/18/19 08:14 Bedside Glucose 70 133 161 166 Subjective 24 Hr Interval Summary Free Text/Dictation Patient has no complaints Exam/Review of Systems Exam Vitals Vital Signs Date Temp Pulse Resp B/P (MAP) Pulse Ox O2 O2 Flow FiO2 Time Delivery Rate 02/18/19 98.1 70 19 158/72 97 07:58 (100) 02/17/19 Room Air 14:50 Intake and Output 02/17/19 02/17/19 02/18/19 1515:00 23:00 07:00 IntakeIntake Total 480 ml 240 ml OutputOutput Total 500 ml BalanceBalance 480 ml -260 ml Constitutional: well developed Head: normocephalic, atraumatic Neck: supple Respiratory: diminished breath sounds Cardiovascular: regular rate and rhythm Gastrointestinal: soft, non-tender Extremities: normal pulses Results Results 24hrs Laboratory Tests Test 02/17/19 17:25 02/17/19 20:38 02/17/19 22:09 02/18/19 03:01 Bedside Glucose 108 149 164 66 L Test 02/18/19 03:23 02/18/19 03:46 02/18/19 04:03 02/18/19 08:14 Bedside Glucose 70 133 161 166 Medications Medication Current Medications Pantoprazole (Protonix Tab) 40 mg DAILY@06 PO Last administered on 02/18/19at 06:11; Admin Dose 40 MG; Start 02/08/19 at 06:00 Acetaminophen (Tylenol Tab) 650 mg Q4H PRN PO MILD PAIN(1-3)OR ELEVATED TEMP; Start 02/08/19 at 02:00 Ondansetron HCl (Zofran Inj) 4 mg Q6H PRN IV NAUSEA AND/OR VOMITING; Start 02/08/19 at 02:00 Zolpidem Tartrate (Ambien) 5 mg HS PRN PO INSOMNIA; Start 02/08/19 at 02:00 Quetiapine Fumarate (Seroquel) 25 mg TID PO Last administered on 02/18/19at 08:24; Admin Dose 25 MG; Start 02/08/19 at 09:00 Levetiracetam (Keppra) 1,000 mg BID PO Last administered on 02/18/19at 08:18; Admin Dose 1,000 MG; Start 02/08/19 at 09:00 Diagnostic Test (Pha) (Accu-Chek) 1 ea 02 XX Last administered on 02/16/19at 01:28; Admin Dose 1 EA; Start 02/09/19 at 02:00 Miscellaneous Information 1 ea NOTE XX ; Start 02/08/19 at 20:00 Glucose (Glutose) 15 gm Q15M PRN PO DECREASED GLUCOSE; Start 02/08/19 at 20:00 Glucose (Glutose) 22.5 gm Q15M PRN PO DECREASED GLUCOSE; Start 02/08/19 at 20:00 Dextrose (D50w Syringe) 25 ml Q15M PRN IV DECREASED GLUCOSE Last administered on 02/09/19at 12:16; Admin Dose 25 ML; Start 02/08/19 at 20:00 Dextrose (D50w Syringe) 50 ml Q15M PRN IV DECREASED GLUCOSE; Start 02/08/19 at 20:00 Glucagon (Glucagen) 1 mg Q15M PRN IM DECREASED GLUCOSE; Start 02/08/19 at 20:00 Glucose (Glutose) 15 gm Q15M PRN BUCCAL DECREASED GLUCOSE; Start 02/08/19 at 20:00 Enoxaparin Sodium (Lovenox) 30 mg DAILY SC Last administered on 02/18/19 08:24; Admin Dose 30 MG; Start 02/09/19 at 09:00 Senna (Senokot) 2 tab BID PO Last administered on 02/18/19 08:18; Admin Dose 2 TAB; Start 02/10/19 at 11:30 Insulin Glargine (Lantus) 20 units DAILY@2000 SC Last administered on 02/17/19 20:41; Admin Dose 20 UNITS; Start 02/12/19 at 20:00 Insulin Aspart (Novolog Insulin Pen) 8 unit AC MEALS SC Last administered on 02/18/19 08:24; Admin Dose 8 UNIT; Start 02/14/19 at 07:00 Insulin Human NPH (Humulin N) 6 unit DAILY@2200 SC Last administered on 02/15/19 21:08; Admin Dose 6 UNIT; Start 02/14/19 at 22:00 Insulin Aspart (Novolog Insulin Pen) NOVOLOG *CUSTOM* ALGORITHM AC MEALS AND BEDTIME SC Last administered on 02/18/19 08:23; Admin Dose 1 UNIT; Start 02/14/19 at 17:30 [employer] Feb 18, 2019 12:14
--- NOTE | 2019-02-18 14:07 | CONS ---
Assessment/Plan Assessment/Plan Problems: (1) Type 1 diabetes mellitus with hyperglycemia Status: Chronic Comment: Patient's blood glucose levels decently controlled. Does not seem to require as much Insulin at night. Will discontinue NPH at this time. Assessment/Plan (Daily) Stable for discharge from endo viewpoint Consultation Date/Type/Reason Admit Date/Time Feb 07, 2019 at 18:24 Initial Consult Date 02/08/19 Type of Consult Endocrine Reason for Consultation DM Type 1 Requesting Provider: ANAIS DOWNS Date/Time of Note DATE: 02/18/19 TIME: 14:02 24 HR Interval Summary Free Text/Dictation No new complaints at this time with respect to glucose management. Exam/Review of Systems Exam Vitals Vital Signs Date Temp Pulse Resp B/P (MAP) Pulse Ox O2 O2 Flow FiO2 Time Delivery Rate 02/18/19 98.1 70 19 158/72 97 07:58 (100) 02/17/19 Room Air 14:50 Intake and Output 02/17/19 02/17/19 02/18/19 1515:00 23:00 07:00 IntakeIntake Total 480 ml 240 ml OutputOutput Total 500 ml BalanceBalance 480 ml -260 ml Constitutional: alert Neck: supple Respiratory: respirations (normal) Cardiovascular: regular rate and rhythm Musculoskeletal: nl extremities to inspection Additional Comments POC glucose reviewed Results Result Diagram: 02/17/19 0504 02/17/19 0504 Results 24hrs Laboratory Tests Test 02/17/19 17:25 02/17/19 20:38 02/17/19 22:09 02/18/19 03:01 Bedside Glucose 108 149 164 66 L Test 02/18/19 03:23 02/18/19 03:46 02/18/19 04:03 02/18/19 08:14 Bedside Glucose 70 133 161 166 Test 02/18/19 12:55 Bedside Glucose 116 Medications Medication Current Medications Pantoprazole (Protonix Tab) 40 mg DAILY@06 PO Last administered on 02/18/19at 06:11; Admin Dose 40 MG; Start 02/08/19 at 06:00 Acetaminophen (Tylenol Tab) 650 mg Q4H PRN PO MILD PAIN(1-3)OR ELEVATED TEMP; Start 02/08/19 at 02:00 Ondansetron HCl (Zofran Inj) 4 mg Q6H PRN IV NAUSEA AND/OR VOMITING; Start 02/08/19 at 02:00 Zolpidem Tartrate (Ambien) 5 mg HS PRN PO INSOMNIA; Start 02/08/19 at 02:00 Quetiapine Fumarate (Seroquel) 25 mg TID PO Last administered on 02/18/19 13:08; Admin Dose 25 MG; Start 02/08/19 at 09:00 Levetiracetam (Keppra) 1,000 mg BID PO Last administered on 02/18/19 08:18; Admin Dose 1,000 MG; Start 02/08/19 at 09:00 Diagnostic Test (Pha) (Accu-Chek) 1 ea 02 XX Last administered on 02/16/19 01:28; Admin Dose 1 EA; Start 02/09/19 at 02:00 Miscellaneous Information 1 ea NOTE XX ; Start 02/08/19 at 20:00 Glucose (Glutose) 15 gm Q15M PRN PO DECREASED GLUCOSE; Start 02/08/19 at 20:00 Glucose (Glutose) 22.5 gm Q15M PRN PO DECREASED GLUCOSE; Start 02/08/19 at 20:00 Dextrose (D50w Syringe) 25 ml Q15M PRN IV DECREASED GLUCOSE Last administered on 02/09/19 12:16; Admin Dose 25 ML; Start 02/08/19 at 20:00 Dextrose (D50w Syringe) 50 ml Q15M PRN IV DECREASED GLUCOSE; Start 02/08/19 at 20:00 Glucagon (Glucagen) 1 mg Q15M PRN IM DECREASED GLUCOSE; Start 02/08/19 at 20:00 Glucose (Glutose) 15 gm Q15M PRN BUCCAL DECREASED GLUCOSE; Start 02/08/19 at 20:00 Enoxaparin Sodium (Lovenox) 30 mg DAILY SC Last administered on 02/18/19 08:24; Admin Dose 30 MG; Start 02/09/19 at 09:00 Senna (Senokot) 2 tab BID PO Last administered on 02/18/19 08:18; Admin Dose 2 TAB; Start 02/10/19 at 11:30 Insulin Glargine (Lantus) 20 units DAILY@2000 SC Last administered on 02/17/19 20:41; Admin Dose 20 UNITS; Start 02/12/19 at 20:00 Insulin Aspart (Novolog Insulin Pen) 8 unit AC MEALS SC Last administered on 02/18/19 13:05; Admin Dose 8 UNIT; Start 02/14/19 at 07:00 Insulin Aspart (Novolog Insulin Pen) NOVOLOG *CUSTOM* ALGORITHM AC MEALS AND BEDTIME SC Last administered on 02/18/19 08:23; Admin Dose 1 UNIT; Start 02/14/19 at 17:30 AMRIT OSCAR MD Feb 18, 2019 14:07
[2019-02-18 14:50] VITALS: BP 136/65; PULSE 88; RESP 18
[2019-02-18 19:28] VITALS: BP 122/73; PULSE 92; RESP 18
[2019-02-18] MEDS: INSULIN GLARGINE [LANTus] (100 UNITS/ML) SYG SC SCH (20:39)
[2019-02-19 01:15] VITALS: BP 150/82; PULSE 82; RESP 18
[2019-02-19] MEDS: ACCU-CHEK XX SCH (02:00)
[2019-02-19] MEDS: PANTOPRAZOLE (EC) 40 MG TAB PO SCH (05:30)
[2019-02-19] MEDS: INSULIN ASPART [NOVOLOG] 3 ML PEN SC SCH ×7 (07:00→21:00)
[2019-02-19 07:31] VITALS: BP 130/69; PULSE 68; RESP 18
[2019-02-19] MEDS: ENOXAPARIN 30 MG/0.3 ML SYG SC SCH (09:05)
[2019-02-19] MEDS: QUETIAPINE 25 MG TAB PO SCH ×3 (09:06→21:05)
[2019-02-19] MEDS: SENNA TAB PO SCH ×2 (09:06→21:05)
[2019-02-19] MEDS: LEVETIRACETAM 500 MG TAB PO SCH ×2 (09:06→21:05)
--- NOTE | 2019-02-19 12:07 | DS ---
Date/Time of Note Date/Time of Note DATE: 02/19/19 TIME: 12:05 Discharge Summary Admission/Discharge Info Admit Date/Time Feb 07, 2019 at 18:24 Discharge Date/Time Patient Condition: Stable Hx of Present Illness Patient is 73-year-old gentleman with history of congestive heart failure, hypertension, anemia, diabetes mellitus type 2, prostate cancer, epilepsy, generalized muscle weakness and schizophrenia was brought from long-term facility for hyperglycemia. The patient's blood sugar been elevated for several days despite of taking Lantus, NovoLog and metformin. The patient is a poor historian and cannot provide any history. Most of the history was obtained from medical records and talking to nursing staff. Patient was diagnosed with DKA in the emergency room and started on insulin drip and admitted for further evaluation and management to intensive care unit. No fever nausea vomiting were reported, patient is able to void. Hospital Course -T1 DM, continue management per endo recs. Dr. Sanchez is following in endocrinology consultation. Blood sugar is well controlled on 20 units of Lant us nightly and pre-meal NovoLog 8 units and 1800 ADA diet. -S/p DKA -Systemic inflammatory response syndrome with leukocytosis most likely secondary to DKA, resolved. -Acute kidney injury,resolved. -Epilepsy, continue Keppra -Hypertension, continue lisinopril Plan of care discussed with Dr. Valdivia. Home Meds Reported Medications Insulin Aspart (Novolog) 100 Unit/1 Ml Cartridge, 0 SQ SLIDING SCALE IF BS 151-200=2 UNITS,201-250=4 UNITS,251-300=6 UNITS,301-350=8 UNITS,351-400=10 UNITS>401=12 UNITS AND CALL . 02/07/19 Ranitidine Hcl* (Zantac*) 75 Mg Tablet, 75 MG PO BID, TAB 02/07/19 Ascorbic Acid (Vitamin C) 500 Mg Tab, 500 MG PO BID, TAB 02/07/19 Acetaminophen* (Tylenol*) 325 Mg Tablet, 650 MG PO Q4H PRN for MILD PAIN LEVEL 1-3, TAB 02/07/19 Quetiapine Fumarate* (Seroquel*) 25 Mg Tablet, 25 MG PO TID, #90 TAB 02/07/19 Rosuvastatin Calcium* (Crestor*) 20 Mg Tablet, 20 MG PO QHS, #30 TAB 02/07/19 Insulin Aspart (Novolog) 100 Unit/1 Ml Cartridge, 8 UNIT SQ WITH MEALS for FOR DM 02/07/19 Magnesium Oxide* (Magnesium Oxide*) 400 Mg Tablet, 400 MG PO TID, TAB 02/07/19 Lisinopril* (Lisinopril*) 5 Mg Tablet, 5 MG PO DAILY, #30 TAB HOLD FOR SBP<110 OR HR<60 02/07/19 Levetiracetam* (Levetiracetam*) 1,000 Mg Tablet, 1000 MG PO BID, TAB 02/07/19 Insulin Glargine* (Lantus*) 100 Unit/Ml Soln, 60 UNIT SC QHS, #1 VIAL 02/07/19 Lactulose* (Lactulose*) 20 Gm/30 Ml Solution, 30 ML PO BID, ML 02/07/19 Ferrous Sulfate* (Ferrous Sulfate*) 325 Mg Tabec, 325 MG PO BID, TAB 02/07/19 Aspirin* (Aspirin* Chew) 81 Mg Tab.chew, 81 MG PO DAILY, TAB.CHEW 02/07/19 Follow-up Plan Continue fingerstick q. before meals and at bedtime. Primary Care Provider Sam Valdivia MD Time spent on discharge: > 30 minutes Pending Labs Laboratory Tests Test 02/18/19 12:55 02/18/19 17:35 02/18/19 20:36 02/19/19 09:01 Bedside 116 121 150 126 Glucose mg/dL (70-220) mg/dL (70-220) mg/dL (70-220) mg/dL (70-220) ANAIS DOWNS Feb 19, 2019 12:07
[2019-02-19 14:35] VITALS: BP 109/64; PULSE 84; RESP 20
--- NOTE | 2019-02-19 18:46 | CONS ---
Assessment/Plan Assessment/Plan Problems: (1) Type 1 diabetes mellitus with hyperglycemia Status: Chronic Comment: BG control has been good. Hyperglycemic today due to late administration of breakfast insulin. Has recovered from this. Has not required hs NPH last 48 hours. Will d/c for now and consider restarting if FBG elevated again in future. Consultation Date/Type/Reason Admit Date/Time Feb 07, 2019 at 18:24 Initial Consult Date 02/08/19 Type of Consult Endocrinology Reason for Consultation DKA Requesting Provider: ANAIS DOWNS Date/Time of Note DATE: 02/19/19 TIME: 18:44 24 HR Interval Summary Constitutional: no complaints, disoriented Exam/Review of Systems Exam Vitals VS - Last 72 Hours, by Label Date Temp Pulse Resp B/P (MAP) Pulse Ox O2 O2 Flow FiO2 Time Delivery Rate 02/19/19 98.1 84 20 109/64 96 Room Air 14:35 (79) 02/19/19 98.1 68 18 130/69 99 Room Air 07:31 (89) 02/19/19 97.7 82 18 150/82 97 01:15 (104) 02/18/19 97.3 92 18 122/73 98 19:28 (89) 02/18/19 98.0 88 18 136/65 97 14:50 (88) 02/18/19 98.1 70 19 158/72 97 07:58 (100) 02/18/19 98.0 66 18 140/71 97 02:24 (94) 02/17/19 97.3 75 18 116/64 98 20:02 (81) 02/17/19 97.9 78 18 106/60 98 Room Air 14:50 (75) 02/17/19 98.6 69 17 131/72 99 07:55 (91) 02/17/19 97.9 76 18 140/80 97 02:13 (100) 02/16/19 98.1 83 18 125/60 99 19:48 (81) Vital Signs Date Temp Pulse Resp B/P (MAP) Pulse Ox O2 O2 Flow FiO2 Time Delivery Rate 02/19/19 98.1 84 20 109/64 96 Room Air 14:35 (79) Intake and Output 02/18/19 02/18/19 02/19/19 1515:00 23:00 07:00 IntakeIntake Total 960 ml 1000 ml OutputOutput Total 275 ml 300 ml 500 ml BalanceBalance 685 ml 700 ml -500 ml Constitutional: alert, well developed; No oriented Respiratory: clear to auscultation, normal air movement Cardiovascular: regular rate and rhythm, nl pulses; No edema, No murmurs/extra sounds, No rub Gastrointestinal: soft, nl liver, spleen, non-tender, bowel sounds; No mass, No rebound or guarding Musculoskeletal: nl extremities to inspection Extremities: normal pulses; No cyanosis, No clubbing, No edema 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: 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, nl speech, nl strength; No nl mental status Additional Comments Bedside Glucose - 72 Hours Test 02/16/19 20:35 02/16/19 21:52 02/17/19 08:03 02/17/19 12:05 Bedside 138 86 134 139 Glucose mg/dL (70-220) mg/dL (70-220) mg/dL (70-220) mg/dL (70-220) Test 02/17/19 17:25 02/17/19 20:38 02/17/19 22:09 02/18/19 03:01 Bedside 108 149 164 66 Glucose mg/dL (70-220) mg/dL (70-220) mg/dL (70-220) mg/dL (70-220) L Test 02/18/19 03:23 02/18/19 03:46 02/18/19 04:03 02/18/19 08:14 Bedside 70 133 161 166 Glucose mg/dL (70-220) mg/dL (70-220) mg/dL (70-220) mg/dL (70-220) Test 02/18/19 12:55 02/18/19 17:35 02/18/19 20:36 02/19/19 09:01 Bedside 116 121 150 126 Glucose mg/dL (70-220) mg/dL (70-220) mg/dL (70-220) mg/dL (70-220) Test 02/19/19 12:39 02/19/19 17:33 Bedside 236 175 Glucose mg/dL (70-220) mg/dL (70-220) H Results Result Diagram: 02/17/19 0504 02/17/19 0504 Results 24hrs Laboratory Tests Test 02/18/19 20:36 02/19/19 09:01 02/19/19 12:39 02/19/19 17:33 Bedside Glucose 150 126 236 H 175 Medications Medication Current Medications Pantoprazole (Protonix Tab) 40 mg DAILY@06 PO Last administered on 02/19/19at 05:30; Admin Dose 40 MG; Start 02/08/19 at 06:00 Acetaminophen (Tylenol Tab) 650 mg Q4H PRN PO MILD PAIN(1-3)OR ELEVATED TEMP Last administered on 02/19/19at 01:25; Admin Dose 650 MG; Start 02/08/19 at 02:00 Ondansetron HCl (Zofran Inj) 4 mg Q6H PRN IV NAUSEA AND/OR VOMITING; Start 02/08/19 at 02:00 Zolpidem Tartrate (Ambien) 5 mg HS PRN PO INSOMNIA; Start 02/08/19 at 02:00 Quetiapine Fumarate (Seroquel) 25 mg TID PO Last administered on 02/19/19at 12:45; Admin Dose 25 MG; Start 02/08/19 at 09:00 Levetiracetam (Keppra) 1,000 mg BID PO Last administered on 02/19/19at 09:06; Admin Dose 1,000 MG; Start 02/08/19 at 09:00 Diagnostic Test (Pha) (Accu-Chek) 1 ea 02 XX Last administered on 02/16/19at 01:28; Admin Dose 1 EA; Start 02/09/19 at 02:00 Miscellaneous Information 1 ea NOTE XX ; Start 02/08/19 at 20:00 Glucose (Glutose) 15 gm Q15M PRN PO DECREASED GLUCOSE; Start 02/08/19 at 20:00 Glucose (Glutose) 22.5 gm Q15M PRN PO DECREASED GLUCOSE; Start 02/08/19 at 20:00 Dextrose (D50w Syringe) 25 ml Q15M PRN IV DECREASED GLUCOSE Last administered on 02/09/19at 12:16; Admin Dose 25 ML; Start 02/08/19 at 20:00 Dextrose (D50w Syringe) 50 ml Q15M PRN IV DECREASED GLUCOSE; Start 02/08/19 at 20:00 Glucagon (Glucagen) 1 mg Q15M PRN IM DECREASED GLUCOSE; Start 02/08/19 at 20:00 Glucose (Glutose) 15 gm Q15M PRN BUCCAL DECREASED GLUCOSE; Start 02/08/19 at 20:00 Enoxaparin Sodium (Lovenox) 30 mg DAILY SC Last administered on 02/19/19 09:05; Admin Dose 30 MG; Start 02/09/19 at 09:00 Senna (Senokot) 2 tab BID PO Last administered on 02/19/19 09:06; Admin Dose 2 TAB; Start 02/10/19 at 11:30 Insulin Glargine (Lantus) 20 units DAILY@2000 SC Last administered on 02/18/19 20:39; Admin Dose 20 UNITS; Start 02/12/19 at 20:00 Insulin Aspart (Novolog Insulin Pen) 8 unit AC MEALS SC Last administered on 02/19/19 17:37; Admin Dose 8 UNIT; Start 02/14/19 at 07:00 Insulin Aspart (Novolog Insulin Pen) NOVOLOG *CUSTOM* ALGORITHM AC MEALS AND BEDTIME SC Last administered on 02/19/19 17:36; Admin Dose 1 UNIT; Start 02/14/19 at 17:30 RUBIN CHACON MD Feb 19, 2019 18:46
[2019-02-19 19:44] VITALS: BP 134/69; PULSE 87; RESP 18
[2019-02-19] MEDS: INSULIN GLARGINE [LANTus] (100 UNITS/ML) SYG SC SCH (21:09)
[2019-02-20 01:38] VITALS: BP 145/64; PULSE 83; RESP 18
[2019-02-20] MEDS: ACCU-CHEK XX SCH (01:39)
[2019-02-20] MEDS: PANTOPRAZOLE (EC) 40 MG TAB PO SCH (06:18)
[2019-02-20 07:40] VITALS: BP 123/63; PULSE 81; RESP 18
[2019-02-20] MEDS: INSULIN ASPART [NOVOLOG] 3 ML PEN SC SCH ×7 (08:12→20:39)
[2019-02-20] MEDS: ENOXAPARIN 30 MG/0.3 ML SYG SC SCH (08:13)
[2019-02-20] MEDS: QUETIAPINE 25 MG TAB PO SCH ×3 (08:15→20:39)
[2019-02-20] MEDS: LEVETIRACETAM 500 MG TAB PO SCH ×2 (08:15→20:40)
[2019-02-20] MEDS: SENNA TAB PO SCH ×2 (08:15→20:39)
[2019-02-20 14:18] VITALS: BP 132/68; PULSE 93; RESP 18
--- NOTE | 2019-02-20 17:10 | PN ---
Date/Time of Note Date/Time of Note DATE: 02/20/19 TIME: 17:09 Assessment/Plan VTE Prophylaxis Risk score (from Ns)>0 risk: 5 SCD applied (from Nsg): Yes Pharmacological prophylaxis: LMWH Lines/Catheters IV Catheter Type (from Nrsg): Saline Lock Urinary Cath still in place: No Assessment/Plan Hospital Course Patient is awake alert calm and cooperative, pending psychiatric evaluation, DC planning. Assessment/Plan -T1 DM, continue management per endo recs. Dr. Sanchez is following in endocrinology consultation. Blood sugar is well controlled on 20 units of Hiro tus nightly and pre-meal NovoLog 8 units and 1800 ADA diet. -S/p DKA -Systemic inflammatory response syndrome with leukocytosis most likely secondary to DKA, resolved. -Acute kidney injury,resolved. -Epilepsy, continue Keppra -Hypertension, continue lisinopril Further recommendations based on clinical course. Plan of care discussed with Dr. Valdivia. Result Diagram: 02/17/19 0504 02/17/19 0504 Results 24hrs Laboratory Tests Test 02/19/19 17:33 02/19/19 21:04 02/20/19 08:05 02/20/19 12:26 Bedside Glucose 175 73 388 H 211 Exam/Review of Systems Exam Vitals Vital Signs Date Temp Pulse Resp B/P (MAP) Pulse Ox O2 O2 Flow FiO2 Time Delivery Rate 02/20/19 97.7 93 18 132/68 98 14:18 (89) 02/19/19 Room Air 14:35 Intake and Output 02/19/19 02/19/19 02/20/19 1515:00 23:00 07:00 IntakeIntake Total 720 ml 776 ml OutputOutput Total 1050 ml 500 ml 600 ml BalanceBalance -330 ml 276 ml -600 ml Exam Constitutional: alert, oriented Respiratory: clear to auscultation Cardiovascular: regular rate and rhythm Gastrointestinal: soft, non-tender Musculoskeletal: nl extremities to inspection Extremities: normal pulses 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: nl mental status Skin: nl turgor Results Results 24hrs Laboratory Tests Test 02/19/19 17:33 02/19/19 21:04 02/20/19 08:05 02/20/19 12:26 Bedside Glucose 175 73 388 H 211 Medications Medication Current Medications Pantoprazole (Protonix Tab) 40 mg DAILY@06 PO Last administered on 02/20/19 06:18; Admin Dose 40 MG; Start 02/08/19 at 06:00 Acetaminophen (Tylenol Tab) 650 mg Q4H PRN PO MILD PAIN(1-3)OR ELEVATED TEMP Last administered on 02/19/19at 01:25; Admin Dose 650 MG; Start 02/08/19 at 02:00 Ondansetron HCl (Zofran Inj) 4 mg Q6H PRN IV NAUSEA AND/OR VOMITING; Start 02/08/19 at 02:00 Zolpidem Tartrate (Ambien) 5 mg HS PRN PO INSOMNIA; Start 02/08/19 at 02:00 Quetiapine Fumarate (Seroquel) 25 mg TID PO Last administered on 02/20/19at 12:32; Admin Dose 25 MG; Start 02/08/19 at 09:00 Levetiracetam (Keppra) 1,000 mg BID PO Last administered on 02/20/19 08:15; Admin Dose 1,000 MG; Start 02/08/19 at 09:00 Diagnostic Test (Pha) (Accu-Chek) 1 ea 02 XX Last administered on 02/16/19at 01:28; Admin Dose 1 EA; Start 02/09/19 at 02:00 Miscellaneous Information 1 ea NOTE XX ; Start 02/08/19 at 20:00 Glucose (Glutose) 15 gm Q15M PRN PO DECREASED GLUCOSE; Start 02/08/19 at 20:00 Glucose (Glutose) 22.5 gm Q15M PRN PO DECREASED GLUCOSE; Start 02/08/19 at 20:00 Dextrose (D50w Syringe) 25 ml Q15M PRN IV DECREASED GLUCOSE Last administered on 02/09/19at 12:16; Admin Dose 25 ML; Start 02/08/19 at 20:00 Dextrose (D50w Syringe) 50 ml Q15M PRN IV DECREASED GLUCOSE; Start 02/08/19 at 20:00 Glucagon (Glucagen) 1 mg Q15M PRN IM DECREASED GLUCOSE; Start 02/08/19 at 20:00 Glucose (Glutose) 15 gm Q15M PRN BUCCAL DECREASED GLUCOSE; Start 02/08/19 at 20:00 Enoxaparin Sodium (Lovenox) 30 mg DAILY SC Last administered on 02/20/19at 08:13; Admin Dose 30 MG; Start 02/09/19 at 09:00 Senna (Senokot) 2 tab BID PO Last administered on 02/20/19 08:15; Admin Dose 2 TAB; Start 02/10/19 at 11:30 Insulin Glargine (Lantus) 20 units DAILY@2000 SC Last administered on 02/19/19 21:09; Admin Dose 20 UNITS; Start 02/12/19 at 20:00 Insulin Aspart (Novolog Insulin Pen) 8 unit AC MEALS SC Last administered on 02/20/19 12:30; Admin Dose 8 UNIT; Start 02/14/19 at 07:00 Insulin Aspart (Novolog Insulin Pen) NOVOLOG *CUSTOM* ALGORITHM AC MEALS AND BEDTIME SC Last administered on 02/20/19 12:31; Admin Dose 2 UNIT; Start 02/14/19 at 17:30 ANAIS DOWNS Feb 20, 2019 17:10
--- NOTE | 2019-02-20 17:31 | PSY ---
Date/Time of Note Date/Time of Note DATE: 02/20/19 TIME: 17:26 Psychiatric Subjective Eval Consent Pt consented to telemedicine: No Subjective Evaluation Patient location: inpatient Chief Complaint: fr Edgar Salcedo high blood sugar? History of present illness Patient is 73-year-old male with history of congestive heart failure, hypertension, anemia, diabetes mellitus type 2, prostate cancer, epilepsy, and hyperglycemia. [id number] evaluation patient is somewhat irritable mumbling to himself responding to internal stimuli patient reports he is depressed, does not seem to process information patient is in poor contact with reality. Staff reports patient needs a resident at this facility and subsequently was brought to the hospital. He has poor impulse control and poor coping skills Past psychiatric history Long history of mental illness Hospitalization: other Medical history Problems Medical Problems: (1) Diabetic ketoacidosis Status: Resolved (2) Type 1 diabetes mellitus with hyperglycemia Status: Chronic Allergies: Coded Allergies: No Known Allergy (Unverified , 02/07/19) Substance Abuse Substance abuse history: No Prior substance abuse treatmen: No Social History Marital status: other DPA/Conservatorship: No Psychiatric Objective Eval Review of Systems: Review of Systems: Not Applicable Physical Examination: Energy: Decreased Interest: Decreased Mental Status Examination: Appearance: Groomed Eye Contact: Fair Psychomotor Activity: Normal Behavior: Cooperative Speech: Soft AFFECT: Constricted Mood: Anxious Though Process: Linear Thought Content: Hallucinations Orientation: x3 Cognition: Alert Insight: Mild Judgement: Mild Attention Span: Distractible Laboratory Results Laboratory Tests Test 02/18/19 17:35 02/18/19 20:36 02/19/19 09:01 02/19/19 12:39 Bedside Glucose 121 mg/dL 150 mg/dL 126 mg/dL 236 mg/dL Test 02/19/19 17:33 02/19/19 21:04 02/20/19 08:05 02/20/19 12:26 Bedside Glucose 175 mg/dL 73 mg/dL 388 mg/dL 211 mg/dL Assessment and Plan Assessment/Diagnosis Diagnosis Schizophrenia unspecified Recommendation/Plan Medication Management Continue Seroquel 25 mg 3 times daily as ordered Multiple antipsychotics: No Psychotherapy Provide supportive therapy Discharge Disposition: Other Legal Status: Voluntary (Patient does not meet criteria for 5150 hold ) DALTON ROSALES NP Feb 20, 2019 17:31
--- NOTE | 2019-02-20 17:34 | CONS ---
Assessment/Plan Assessment/Plan Problems: (1) Type 1 diabetes mellitus with hyperglycemia Status: Chronic Comment: Pt. was getting good glycemic control until last night when BG was 73 mg/dL. RN overtreated this w/ unspecified volume of juice plus crackers. This am glucose > 300 mg/dL. Pre-lunch still > 200 mg/dL. Will cont. current insulin regimen and advise nursing staff against overcorrection. Consultation Date/Type/Reason Admit Date/Time Feb 07, 2019 at 18:24 Initial Consult Date 02/08/19 Type of Consult Endocrinology Reason for Consultation DKA Requesting Provider: ANAIS DOWNS Date/Time of Note DATE: 02/20/19 TIME: 17:31 24 HR Interval Summary Constitutional: no complaints, disoriented Exam/Review of Systems Exam Vitals VS - Last 72 Hours, by Label Date Temp Pulse Resp B/P (MAP) Pulse Ox O2 O2 Flow FiO2 Time Delivery Rate 02/20/19 97.7 93 18 132/68 98 14:18 (89) 02/20/19 97.6 81 18 123/63 98 07:40 (83) 02/20/19 98.0 83 18 145/64 98 01:38 (91) 02/19/19 98.7 87 18 134/69 99 19:44 (90) 02/19/19 98.1 84 20 109/64 96 Room Air 14:35 (79) 02/19/19 98.1 68 18 130/69 99 Room Air 07:31 (89) 02/19/19 97.7 82 18 150/82 97 01:15 (104) 02/18/19 97.3 92 18 122/73 98 19:28 (89) 02/18/19 98.0 88 18 136/65 97 14:50 (88) 02/18/19 98.1 70 19 158/72 97 07:58 (100) 02/18/19 98.0 66 18 140/71 97 02:24 (94) 02/17/19 97.3 75 18 116/64 98 20:02 (81) Vital Signs Date Temp Pulse Resp B/P (MAP) Pulse Ox O2 O2 Flow FiO2 Time Delivery Rate 02/20/19 97.7 93 18 132/68 98 14:18 (89) 02/19/19 Room Air 14:35 Intake and Output 02/19/19 02/19/19 02/20/19 1515:00 23:00 07:00 IntakeIntake Total 720 ml 776 ml OutputOutput Total 1050 ml 500 ml 600 ml BalanceBalance -330 ml 276 ml -600 ml Constitutional: alert, well developed; No oriented Psych: no complaints, nl mood/affect Respiratory: clear to auscultation, normal air movement Cardiovascular: regular rate and rhythm, nl pulses; No edema, No murmurs/extra sounds, No rub Gastrointestinal: soft, nl liver, spleen, non-tender, bowel sounds; No mass, No rebound or guarding Musculoskeletal: nl extremities to inspection Extremities: normal pulses; No cyanosis, No clubbing, No edema 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: 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-XII 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, nl speech, nl strength Additional Comments Bedside Glucose - 72 Hours Test 02/17/19 20:38 02/17/19 22:09 02/18/19 03:01 02/18/19 03:23 Bedside 149 164 66 70 Glucose mg/dL (70-220) mg/dL (70-220) mg/dL (70-220) mg/dL (70-220) L Test 02/18/19 03:46 02/18/19 04:03 02/18/19 08:14 02/18/19 12:55 Bedside 133 161 166 116 Glucose mg/dL (70-220) mg/dL (70-220) mg/dL (70-220) mg/dL (70-220) Test 02/18/19 17:35 02/18/19 20:36 02/19/19 09:01 02/19/19 12:39 Bedside 121 150 126 236 Glucose mg/dL (70-220) mg/dL (70-220) mg/dL (70-220) mg/dL (70-220) H Test 02/19/19 17:33 02/19/19 21:04 02/20/19 08:05 02/20/19 12:26 Bedside 175 73 388 211 Glucose mg/dL (70-220) mg/dL (70-220) mg/dL (70-220) mg/dL (70-220) H Results Result Diagram: 02/17/19 0504 02/17/19 0504 Results 24hrs Laboratory Tests Test 02/19/19 17:33 02/19/19 21:04 02/20/19 08:05 02/20/19 12:26 Bedside Glucose 175 73 388 H 211 Medications Medication Current Medications Pantoprazole (Protonix Tab) 40 mg DAILY@06 PO Last administered on 02/20/19 06:18; Admin Dose 40 MG; Start 02/08/19 at 06:00 Acetaminophen (Tylenol Tab) 650 mg Q4H PRN PO MILD PAIN(1-3)OR ELEVATED TEMP Last administered on 02/19/19 01:25; Admin Dose 650 MG; Start 02/08/19 at 02:00 Ondansetron HCl (Zofran Inj) 4 mg Q6H PRN IV NAUSEA AND/OR VOMITING; Start 02/08/19 at 02:00 Zolpidem Tartrate (Ambien) 5 mg HS PRN PO INSOMNIA; Start 02/08/19 at 02:00 Quetiapine Fumarate (Seroquel) 25 mg TID PO Last administered on 02/20/19at 12:32; Admin Dose 25 MG; Start 02/08/19 at 09:00 Levetiracetam (Keppra) 1,000 mg BID PO Last administered on 02/20/19 08:15; Admin Dose 1,000 MG; Start 02/08/19 at 09:00 Diagnostic Test (Pha) (Accu-Chek) 1 ea 02 XX Last administered on 02/16/19at 01:28; Admin Dose 1 EA; Start 02/09/19 at 02:00 Miscellaneous Information 1 ea NOTE XX ; Start 02/08/19 at 20:00 Glucose (Glutose) 15 gm Q15M PRN PO DECREASED GLUCOSE; Start 02/08/19 at 20:00 Glucose (Glutose) 22.5 gm Q15M PRN PO DECREASED GLUCOSE; Start 02/08/19 at 20:00 Dextrose (D50w Syringe) 25 ml Q15M PRN IV DECREASED GLUCOSE Last administered on 02/09/19at 12:16; Admin Dose 25 ML; Start 02/08/19 at 20:00 Dextrose (D50w Syringe) 50 ml Q15M PRN IV DECREASED GLUCOSE; Start 02/08/19 at 20:00 Glucagon (Glucagen) 1 mg Q15M PRN IM DECREASED GLUCOSE; Start 02/08/19 at 20:00 Glucose (Glutose) 15 gm Q15M PRN BUCCAL DECREASED GLUCOSE; Start 02/08/19 at 20:00 Enoxaparin Sodium (Lovenox) 30 mg DAILY SC Last administered on 02/20/19 08:13; Admin Dose 30 MG; Start 02/09/19 at 09:00 Senna (Senokot) 2 tab BID PO Last administered on 02/20/19 08:15; Admin Dose 2 TAB; Start 02/10/19 at 11:30 Insulin Glargine (Lantus) 20 units DAILY@2000 SC Last administered on 02/19/19 21:09; Admin Dose 20 UNITS; Start 02/12/19 at 20:00 Insulin Aspart (Novolog Insulin Pen) 8 unit AC MEALS SC Last administered on 02/20/19 17:25; Admin Dose 8 UNIT; Start 02/14/19 at 07:00 Insulin Aspart (Novolog Insulin Pen) NOVOLOG *CUSTOM* ALGORITHM AC MEALS AND BEDTIME SC Last administered on 02/20/19 17:26; Admin Dose 1 UNIT; Start 01/21 02/07 at 17:30 RUBIN CHACON MD Feb 20, 2019 17:34
[2019-02-20 19:30] VITALS: BP 111/68; PULSE 71; RESP 18
[2019-02-20] MEDS: INSULIN GLARGINE [LANTus] (100 UNITS/ML) SYG SC SCH (20:41)
[2019-02-20 22:16] VITALS: BP 134/81; PULSE 73; RESP 17
[2019-02-21 01:46] VITALS: BP 124/74; PULSE 78; RESP 18
[2019-02-21] MEDS: ACCU-CHEK XX SCH (02:00)
[2019-02-21] MEDS: PANTOPRAZOLE (EC) 40 MG TAB PO SCH (05:42)
[2019-02-21 07:44] VITALS: BP 134/76; PULSE 72; RESP 15
[2019-02-21] MEDS: LEVETIRACETAM 500 MG TAB PO SCH ×2 (08:25→21:35)
[2019-02-21] MEDS: QUETIAPINE 25 MG TAB PO SCH ×3 (08:25→21:35)
[2019-02-21] MEDS: SENNA TAB PO SCH ×2 (08:25→21:35)
[2019-02-21] MEDS: ENOXAPARIN 30 MG/0.3 ML SYG SC SCH (08:27)
[2019-02-21] MEDS: INSULIN ASPART [NOVOLOG] 3 ML PEN SC SCH ×7 (08:33→21:36)
[2019-02-21 13:48] VITALS: BP 112/60; PULSE 75; RESP 15
--- NOTE | 2019-02-21 16:41 | PN ---
Date/Time of Note Date/Time of Note DATE: 02/21/19 TIME: 16:38 Assessment/Plan VTE Prophylaxis Risk score (from Nsg)>0 risk: 5 SCD applied (from Ns): No SCD contraindicated: patient refusal Pharmacological prophylaxis: LMWH Lines/Catheters IV Catheter Type (from Nrs): Saline Lock Urinary Cath still in place: No Assessment/Plan Hospital Course Patient is awake alert calm and cooperative, continue current insulin management per endocrinology recommendations with 1800 ADA status post psychiatric evaluation with recommendation to continue Seroquel. DC planning. Assessment/Plan -T1 DM, continue management per endo recs. Dr. Sanchez is following in endocrinology consultation. Blood sugar is well controlled on 20 units of Lantus nightly and pre-meal NovoLog 8 units and 1800 ADA diet. -S/p DKA -Systemic inflammatory response syndrome with leukocytosis most likely secondary to DKA, resolved. -Acute kidney injury,resolved. -Epilepsy, continue Keppra -Hypertension, continue lisinopril -Schizophrenia unspecified. Continue Seroquel 25 mg 3 times daily. Status post evaluation by psychiatry DNP [place]. Further recommendations based on clinical course. Plan of care discussed with Dr. Valdivia. Result Diagram: 02/17/19 0504 02/17/19 0504 Results 24hrs Laboratory Tests Test 02/20/19 17:24 02/20/19 20:38 02/21/19 08:24 02/21/19 12:29 Bedside Glucose 161 89 166 190 Exam/Review of Systems Exam Vitals Vital Signs Date Temp Pulse Resp B/P (MAP) Pulse Ox O2 O2 Flow FiO2 Time Delivery Rate 02/21/19 98.2 75 15 112/60 97 Room Air 13:48 (77) Intake and Output 02/20/19 02/20/19 02/21/19 1515:00 23:00 07:00 OutputOutput Total 450 ml BalanceBalance -450 ml Exam Constitutional: alert, oriented Respiratory: clear to auscultation Cardiovascular: regular rate and rhythm Gastrointestinal: soft, non-tender Musculoskeletal: nl extremities to inspection Extremities: normal pulses 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: nl mental status Skin: nl turgor Results Results 24hrs Laboratory Tests Test 02/20/19 17:24 02/20/19 20:38 02/21/19 08:24 02/21/19 12:29 Bedside Glucose 161 89 166 190 Medications Medication Current Medications Pantoprazole (Protonix Tab) 40 mg DAILY@06 PO Last administered on 02/21/19 05:42; Admin Dose 40 MG; Start 02/08/19 at 06:00 Acetaminophen (Tylenol Tab) 650 mg Q4H PRN PO MILD PAIN(1-3)OR ELEVATED TEMP Last administered on 02/19/19 01:25; Admin Dose 650 MG; Start 02/08/19 at 02:00 Ondansetron HCl (Zofran Inj) 4 mg Q6H PRN IV NAUSEA AND/OR VOMITING; Start 02/08/19 at 02:00 Zolpidem Tartrate (Ambien) 5 mg HS PRN PO INSOMNIA; Start 02/08/19 at 02:00 Quetiapine Fumarate (Seroquel) 25 mg TID PO Last administered on 02/21/19 12:29; Admin Dose 25 MG; Start 02/08/19 at 09:00 Levetiracetam (Keppra) 1,000 mg BID PO Last administered on 02/21/19 08:25; Admin Dose 1,000 MG; Start 02/08/19 at 09:00 Diagnostic Test (Pha) (Accu-Chek) 1 ea 02 XX Last administered on 02/16/19 01:28; Admin Dose 1 EA; Start 02/09/19 at 02:00 Miscellaneous Information 1 ea NOTE XX ; Start 02/08/19 at 20:00 Glucose (Glutose) 15 gm Q15M PRN PO DECREASED GLUCOSE; Start 02/08/19 at 20:00 Glucose (Glutose) 22.5 gm Q15M PRN PO DECREASED GLUCOSE; Start 02/08/19 at 20:00 Dextrose (D50w Syringe) 25 ml Q15M PRN IV DECREASED GLUCOSE Last administered on 02/09/19at 12:16; Admin Dose 25 ML; Start 02/08/19 at 20:00 Dextrose (D50w Syringe) 50 ml Q15M PRN IV DECREASED GLUCOSE; Start 02/08/19 at 20:00 Glucagon (Glucagen) 1 mg Q15M PRN IM DECREASED GLUCOSE; Start 02/08/19 at 20:00 Glucose (Glutose) 15 gm Q15M PRN BUCCAL DECREASED GLUCOSE; Start 02/08/19 at 20:00 Enoxaparin Sodium (Lovenox) 30 mg DAILY SC Last administered on 02/21/19 08:27; Admin Dose 30 MG; Start 02/09/19 at 09:00 Senna (Senokot) 2 tab BID PO Last administered on 02/21/19 08:25; Admin Dose 2 TAB; Start 02/10/19 at 11:30 Insulin Glargine (Lantus) 20 units DAILY@2000 SC Last administered on 02/20/19 20:41; Admin Dose 20 UNITS; Start 02/12/19 at 20:00 Insulin Aspart (Novolog Insulin Pen) 8 unit AC MEALS SC Last administered on 02/21/19 12:51; Admin Dose 8 UNIT; Start 02/14/19 at 07:00 Insulin Aspart (Novolog Insulin Pen) NOVOLOG *CUSTOM* ALGORITHM AC MEALS AND BEDTIME SC Last administered on 02/21/19 12:51; Admin Dose 1 UNIT; Start 02/14/19 at 17:30 ANAIS DOWNS Feb 21, 2019 16:41
--- NOTE | 2019-02-21 17:58 | CONS ---
Assessment/Plan Assessment/Plan Problems: (1) Type 1 diabetes mellitus with hyperglycemia Status: Chronic Comment: Excellent glycemic control today. Cont. current insulin regimen. Consultation Date/Type/Reason Admit Date/Time Feb 07, 2019 at 18:24 Initial Consult Date 02/08/19 Type of Consult Endocrinology Reason for Consultation DKA Requesting Provider: ANAIS DOWNS Date/Time of Note DATE: 02/21/19 TIME: 17:57 24 HR Interval Summary Subjective hx not possible: pt non-verbal (sleeping) Exam/Review of Systems Exam Vitals VS - Last 72 Hours, by Label Date Temp Pulse Resp B/P (MAP) Pulse Ox O2 O2 Flow FiO2 Time Delivery Rate 02/21/19 98.2 75 15 112/60 97 Room Air 13:48 (77) 02/21/19 98.4 72 15 134/76 98 Room Air 07:44 (95) 02/21/19 98.0 78 18 124/74 99 01:46 (91) 02/20/19 98.4 73 17 134/81 99 22:16 (98) 02/20/19 97.4 71 18 111/68 97 19:30 (82) 02/20/19 97.7 93 18 132/68 98 14:18 (89) 02/20/19 97.6 81 18 123/63 98 07:40 (83) 02/20/19 98.0 83 18 145/64 98 01:38 (91) 02/19/19 98.7 87 18 134/69 99 19:44 (90) 02/19/19 98.1 84 20 109/64 96 Room Air 14:35 (79) 02/19/19 98.1 68 18 130/69 99 Room Air 07:31 (89) 02/19/19 97.7 82 18 150/82 97 01:15 (104) 02/18/19 97.3 92 18 122/73 98 19:28 (89) Vital Signs Date Temp Pulse Resp B/P (MAP) Pulse Ox O2 O2 Flow FiO2 Time Delivery Rate 02/21/19 98.2 75 15 112/60 97 Room Air 13:48 (77) Intake and Output 02/20/19 02/20/19 02/21/19 1414:59 22:59 06:59 OutputOutput Total 450 ml BalanceBalance -450 ml Constitutional: well developed, non-verbal (sleeping); No alert, No oriented Respiratory: clear to auscultation, normal air movement Cardiovascular: regular rate and rhythm, nl pulses; No edema, No murmurs/extra sounds, No rub Gastrointestinal: soft, nl liver, spleen, non-tender, bowel sounds; No mass, No rebound or guarding Musculoskeletal: nl extremities to inspection Extremities: normal pulses; No cyanosis, No clubbing, No edema 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: 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, nl mental status, nl speech, nl strength Additional Comments Bedside Glucose - 72 Hours Test 02/18/19 20:36 02/19/19 09:01 02/19/19 12:39 02/19/19 17:33 Bedside 150 126 236 175 Glucose mg/dL (70-220) mg/dL (70-220) mg/dL (70-220) mg/dL (70-220) H Test 02/19/19 21:04 02/20/19 08:05 02/20/19 12:26 02/20/19 17:24 Bedside 73 388 211 161 Glucose mg/dL (70-220) mg/dL (70-220) mg/dL (70-220) mg/dL (70-220) H Test 02/20/19 20:38 02/21/19 08:24 02/21/19 12:29 02/21/19 17:18 Bedside 89 166 190 128 Glucose mg/dL (70-220) mg/dL (70-220) mg/dL (70-220) mg/dL (70-220) Results Result Diagram: 02/17/19 0504 02/17/19 0504 Results 24hrs Laboratory Tests Test 02/20/19 20:38 02/21/19 08:24 02/21/19 12:29 02/21/19 17:18 Bedside Glucose 89 166 190 128 Medications Medication Current Medications Pantoprazole (Protonix Tab) 40 mg DAILY@06 PO Last administered on 02/21/19at 05:42; Admin Dose 40 MG; Start 02/08/19 at 06:00 Acetaminophen (Tylenol Tab) 650 mg Q4H PRN PO MILD PAIN(1-3)OR ELEVATED TEMP Last administered on 02/19/19at 01:25; Admin Dose 650 MG; Start 02/08/19 at 02:00 Ondansetron HCl (Zofran Inj) 4 mg Q6H PRN IV NAUSEA AND/OR VOMITING; Start 02/08/19 at 02:00 Zolpidem Tartrate (Ambien) 5 mg HS PRN PO INSOMNIA; Start 02/08/19 at 02:00 Quetiapine Fumarate (Seroquel) 25 mg TID PO Last administered on 02/21/19 12:29; Admin Dose 25 MG; Start 02/08/19 at 09:00 Levetiracetam (Keppra) 1,000 mg BID PO Last administered on 02/21/19 08:25; Admin Dose 1,000 MG; Start 02/08/19 at 09:00 Diagnostic Test (Pha) (Accu-Chek) 1 ea 02 XX Last administered on 02/16/19 01:28; Admin Dose 1 EA; Start 02/09/19 at 02:00 Miscellaneous Information 1 ea NOTE XX ; Start 02/08/19 at 20:00 Glucose (Glutose) 15 gm Q15M PRN PO DECREASED GLUCOSE; Start 02/08/19 at 20:00 Glucose (Glutose) 22.5 gm Q15M PRN PO DECREASED GLUCOSE; Start 02/08/19 at 20:00 Dextrose (D50w Syringe) 25 ml Q15M PRN IV DECREASED GLUCOSE Last administered on 02/09/19 12:16; Admin Dose 25 ML; Start 02/08/19 at 20:00 Dextrose (D50w Syringe) 50 ml Q15M PRN IV DECREASED GLUCOSE; Start 02/08/19 at 20:00 Glucagon (Glucagen) 1 mg Q15M PRN IM DECREASED GLUCOSE; Start 02/08/19 at 20:00 Glucose (Glutose) 15 gm Q15M PRN BUCCAL DECREASED GLUCOSE; Start 02/08/19 at 20:00 Enoxaparin Sodium (Lovenox) 30 mg DAILY SC Last administered on 02/21/19 08:27; Admin Dose 30 MG; Start 02/09/19 at 09:00 Senna (Senokot) 2 tab BID PO Last administered on 02/21/19 08:25; Admin Dose 2 TAB; Start 02/10/19 at 11:30 Insulin Glargine (Lantus) 20 units DAILY@2000 SC Last administered on 02/20/19 20:41; Admin Dose 20 UNITS; Start 02/12/19 at 20:00 Insulin Aspart (Novolog Insulin Pen) 8 unit AC MEALS SC Last administered on 02/21/19 17:21; Admin Dose 8 UNIT; Start 02/14/19 at 07:00 Insulin Aspart (Novolog Insulin Pen) NOVOLOG *CUSTOM* ALGORITHM AC MEALS AND BEDTIME SC Last administered on 02/21/19 12:51; Admin Dose 1 UNIT; Start 02/14/19 at 17:30 RUBIN CHACON MD Feb 21, 2019 17:58
[2019-02-21 20:29] VITALS: BP 124/62; PULSE 78; RESP 16
[2019-02-21] MEDS: INSULIN GLARGINE [LANTus] (100 UNITS/ML) SYG SC SCH (21:36)
[2019-02-22] MEDS: ACCU-CHEK XX SCH (02:00)
[2019-02-22 02:03] VITALS: BP 138/80; PULSE 82; RESP 16
[2019-02-22] MEDS: PANTOPRAZOLE (EC) 40 MG TAB PO SCH (06:15)
[2019-02-22 07:30] VITALS: BP 145/78; PULSE 66; RESP 18
[2019-02-22] MEDS: SENNA TAB PO SCH (08:28)
[2019-02-22] MEDS: QUETIAPINE 25 MG TAB PO SCH ×2 (08:28→12:31)
[2019-02-22] MEDS: LEVETIRACETAM 500 MG TAB PO SCH (08:28)
[2019-02-22] MEDS: INSULIN ASPART [NOVOLOG] 3 ML PEN SC SCH ×4 (08:31→12:27)
[2019-02-22] MEDS: ENOXAPARIN 30 MG/0.3 ML SYG SC SCH (08:34)
--- NOTE | 2019-02-22 11:15 | CONS ---
Assessment/Plan Assessment/Plan Problems: (1) Type 1 diabetes mellitus with hyperglycemia Status: Chronic Comment: On the present basal bolus regimen he is doing quite well without hyperglycemia without hypoglycemia. I would continue this in the same fashion. Consultation Date/Type/Reason Admit Date/Time Feb 07, 2019 at 18:24 Initial Consult Date 02/08/19 Type of Consult Endocrine Reason for Consultation Diabetes mellitus type 1 presenting with DKA; schizoaffective disorder Requesting Provider: ANAIS DOWNS Date/Time of Note DATE: 02/22/19 TIME: 11:13 24 HR Interval Summary Free Text/Dictation Patient lying in bed but awake and willing to chat for short time Constitutional: no complaints Detailed Summary Respiratory: no complaints Cardiovascular: no complaints Endocrine: no complaints Exam/Review of Systems Exam Vitals Vital Signs Date Temp Pulse Resp B/P (MAP) Pulse Ox O2 O2 Flow FiO2 Time Delivery Rate 02/22/19 97.8 66 18 145/78 97 Room Air 07:30 (100) Constitutional: alert, oriented Respiratory: clear to auscultation, normal air movement Cardiovascular: regular rate and rhythm, nl pulses Results Results 24hrs Laboratory Tests Test 02/21/19 12:29 02/21/19 17:18 02/21/19 21:34 02/22/19 01:59 Bedside Glucose 190 128 208 249 H Test 02/22/19 07:49 Bedside Glucose 163 Medications Medication Current Medications Pantoprazole (Protonix Tab) 40 mg DAILY@06 PO Last administered on 02/22/19at 06:15; Admin Dose 40 MG; Start 02/08/19 at 06:00 Acetaminophen (Tylenol Tab) 650 mg Q4H PRN PO MILD PAIN(1-3)OR ELEVATED TEMP Last administered on 02/19/19at 01:25; Admin Dose 650 MG; Start 02/08/19 at 02:00 Ondansetron HCl (Zofran Inj) 4 mg Q6H PRN IV NAUSEA AND/OR VOMITING; Start 02/08/19 at 02:00 Zolpidem Tartrate (Ambien) 5 mg HS PRN PO INSOMNIA; Start 02/08/19 at 02:00 Quetiapine Fumarate (Seroquel) 25 mg TID PO Last administered on 02/22/19at 08:28; Admin Dose 25 MG; Start 02/08/19 at 09:00 Levetiracetam (Keppra) 1,000 mg BID PO Last administered on 02/22/19 08:28; Admin Dose 1,000 MG; Start 02/08/19 at 09:00 Diagnostic Test (Pha) (Accu-Chek) 1 ea 02 XX Last administered on 02/22/19 02:00; Admin Dose 1 EA; Start 02/09/19 at 02:00 Miscellaneous Information 1 ea NOTE XX ; Start 02/08/19 at 20:00 Glucose (Glutose) 15 gm Q15M PRN PO DECREASED GLUCOSE; Start 02/08/19 at 20:00 Glucose (Glutose) 22.5 gm Q15M PRN PO DECREASED GLUCOSE; Start 02/08/19 at 20:00 Dextrose (D50w Syringe) 25 ml Q15M PRN IV DECREASED GLUCOSE Last administered on 02/09/19at 12:16; Admin Dose 25 ML; Start 02/08/19 at 20:00 Dextrose (D50w Syringe) 50 ml Q15M PRN IV DECREASED GLUCOSE; Start 02/08/19 at 20:00 Glucagon (Glucagen) 1 mg Q15M PRN IM DECREASED GLUCOSE; Start 02/08/19 at 20:00 Glucose (Glutose) 15 gm Q15M PRN BUCCAL DECREASED GLUCOSE; Start 02/08/19 at 20:00 Enoxaparin Sodium (Lovenox) 30 mg DAILY SC Last administered on 02/22/19 08:34; Admin Dose 30 MG; Start 02/09/19 at 09:00 Senna (Senokot) 2 tab BID PO Last administered on 02/22/19 08:28; Admin Dose 2 TAB; Start 02/10/19 at 11:30 Insulin Glargine (Lantus) 20 units DAILY@2000 SC Last administered on 02/21/19 21:36; Admin Dose 20 UNITS; Start 02/12/19 at 20:00 Insulin Aspart (Novolog Insulin Pen) 8 unit AC MEALS SC Last administered on 02/22/19 08:31; Admin Dose 8 UNIT; Start 02/14/19 at 07:00 Insulin Aspart (Novolog Insulin Pen) NOVOLOG *CUSTOM* ALGORITHM AC MEALS AND BEDTIME SC Last administered on 02/22/19 08:31; Admin Dose 1 UNIT; Start 02/14/19 at 17:30 SCOOBY TADEO MD Feb 22, 2019 11:15
[2019-02-22 14:00] VITALS: BP 112/66; PULSE 81; RESP 18
--- NOTE | 2019-02-22 14:15 | DS ---
Date/Time of Note Date/Time of Note DATE: 02/22/19 TIME: 14:14 Discharge Summary Admission/Discharge Info Admit Date/Time Feb 07, 2019 at 18:24 Discharge Date/Time Patient Condition: Stable Hx of Present Illness Patient is 73-year-old gentleman with history of congestive heart failure, hypertension, anemia, diabetes mellitus type 2, prostate cancer, epilepsy, generalized muscle weakness and schizophrenia was brought from assisted facility for hyperglycemia. The patient's blood sugar been elevated for several days despite of taking Lantus, NovoLog and metformin. The patient is a poor historian and cannot provide any history. Most of the history was obtained from medical records and talking to nursing staff. Patient was diagnosed with DKA in the emergency room and started on insulin drip and admitted for further evaluation and management to intensive care unit. No fever nausea vomiting were reported, patient is able to void. Hospital Course -T1 DM, continue management per endo recjean. Dr. Sanchez is following in endocrinology consultation. Blood sugar is well controlled on 20 units of Lant us nightly and pre-meal NovoLog 8 units and 1800 ADA diet. -S/p DKA -Systemic inflammatory response syndrome with leukocytosis most likely secondary to DKA, resolved. -Acute kidney injury, resolved. -Epilepsy, continue Keppra -Hypertension, continue lisinopril -Schizophrenia unspecified. Continue Seroquel 25 mg 3 times daily. Status post evaluation by psychiatry DNP On. Plan of care discussed with Dr. Valdivia. Home Meds Reported Medications Insulin Aspart (Novolog) 100 Unit/1 Ml Cartridge, 0 SQ SLIDING SCALE IF BS 151-200=2 UNITS,201-250=4 UNITS,251-300=6 UNITS,301-350=8 UNITS,351-400=10 UNITS>401=12 UNITS AND CALL MD. 02/07/19 Ranitidine Hcl* (Zantac*) 75 Mg Tablet, 75 MG PO BID, TAB 02/07/19 Ascorbic Acid (Vitamin C) 500 Mg Tab, 500 MG PO BID, TAB 02/07/19 Acetaminophen* (Tylenol*) 325 Mg Tablet, 650 MG PO Q4H PRN for MILD PAIN LEVEL 1-3, TAB 02/07/19 Quetiapine Fumarate* (Seroquel*) 25 Mg Tablet, 25 MG PO TID, #90 TAB 02/07/19 Rosuvastatin Calcium* (Crestor*) 20 Mg Tablet, 20 MG PO QHS, #30 TAB 02/07/19 Insulin Aspart (Novolog) 100 Unit/1 Ml Cartridge, 8 UNIT SQ WITH MEALS for FOR DM 02/07/19 Magnesium Oxide* (Magnesium Oxide*) 400 Mg Tablet, 400 MG PO TID, TAB 02/07/19 Lisinopril* (Lisinopril*) 5 Mg Tablet, 5 MG PO DAILY, #30 TAB HOLD FOR SBP<110 OR HR<60 02/07/19 Levetiracetam* (Levetiracetam*) 1,000 Mg Tablet, 1000 MG PO BID, TAB 02/07/19 Insulin Glargine* (Lantus*) 100 Unit/Ml Soln, 60 UNIT SC QHS, #1 VIAL 02/07/19 Lactulose* (Lactulose*) 20 Gm/30 Ml Solution, 30 ML PO BID, ML 02/07/19 Ferrous Sulfate* (Ferrous Sulfate*) 325 Mg Tabec, 325 MG PO BID, TAB 02/07/19 Aspirin* (Aspirin* Chew) 81 Mg Tab.chew, 81 MG PO DAILY, TAB.CHEW 02/07/19 Follow-up Plan Continue fingerstick q. before meals and at bedtime. Primary Care Provider Sam Valdivia MD Time spent on discharge: > 30 minutes Pending Labs Laboratory Tests Test 02/21/19 17:18 02/21/19 21:34 02/22/19 01:59 02/22/19 07:49 Bedside 128 208 249 163 Glucose mg/dL (70-220) mg/dL (70-220) mg/dL (70-220) mg/dL (70-220) Test 02/22/19 12:22 Bedside 205 Glucose mg/dL (70-220) ANAIS DOWNS Feb 22, 2019 14:15
== END 2019-02-22 16:00 | DRG 638 ==
LOC: E/R 15:35 → ICU 18:24 → 6WM 02-08 22:06 → 2NE 02-16 02:20 → PP2 02-20 21:55 → 5EC 02-20 22:21
PROVIDERS: ADMIT Internal Medicine; ATTEND Internal Medicine
DX: E10.10 Type 1 diabetes mellitus with ketoacidosis without coma (principal); N17.9 Acute kidney failure, unspecified; R65.10 Systemic inflammatory response syndrome (SIRS) of non-infectious origin without acute organ dysfunction; Z79.82 Long term (current) use of aspirin; Z79.4 Long term (current) use of insulin; I11.0 Hypertensive heart disease with heart failure; I50.9 Heart failure, unspecified; E78.00 Pure hypercholesterolemia, unspecified; D64.9 Anemia, unspecified; F20.9 Schizophrenia, unspecified; G40.909 Epilepsy, unspecified, not intractable, without status epilepticus; Z85.46 Personal history of malignant neoplasm of prostate
CPT/HCPCS: 36415; 80048; 80053; 81001; 81003; 82803; 82962; 83036; 83735; 84100; 84443; 84484; 84681; 85025; 85610; 85730; 93005; 97110; 97116; 97161; 97530; J1650; J1815; J3480; J7030; J7042; J7050; J7120